=== PATIENT | female | born 1935 | race Caucasian/White ===

== ENCOUNTER → 2017-01-24 | Outpatient (CLI) | payer MEDICARE, BC | LOC: WI 13:42 | PROVIDERS: ATTEND Internal Medicine | DX: Z12.31 Encounter for screening mammogram for malignant neoplasm of breast (principal) | CPT/HCPCS: 77067; G0202 ==

== ENCOUNTER 2017-05-28 11:29 | Inpatient (IN) | payer MEDICARE, BC ==
[2017-05-28] MEDS ORDERED: IPRATROPIUM/ALBUTEROL 0.5-2.5 MG/3 ML AMPUL NEB ONE ×2 (11:37→14:40)
[2017-05-28 12:18] LABS: ABSOLUTE BASOPHILS # (AUTO) 0.1 10^3/uL (0.0-0.2); ABSOLUTE EOSINOPHILS # (AUTO) 0.2 10^3/uL (0.0-0.6); ABSOLUTE LYMPHOCYTES (AUTO) 1.8 10^3/uL (0.5-4.7); ABSOLUTE NEUT (AUTO) 8.2 10^3/uL (1.7-8.2); BASOPHILS % (AUTO) 0.5 % (0-2); EOSINOPHILS % (AUTO) 1.9 % (0-6); HEMATOCRIT 32.7 % (36.0-47.0); HEMOGLOBIN 10.9 g/dL (12.0-15.5); LYMPHOCYTES % (AUTO) 15.6 % (13-45); MEAN CORPUSCULAR HEMOGLOBIN 29.6 pg (27.0-33.4); MEAN CORPUSCULAR HGB CONC 33.4 g/dL (32.0-36.0); MEAN CORPUSCULAR VOLUME 89 fl (80-97); MONOCYTES % (AUTO) 9.3 % (3-13); RED BLOOD COUNT 3.68 10^6/uL (3.72-5.28); SEGMENTED NEUTROPHILS % (AUTO) 72.7 % (42-78); WHITE BLOOD COUNT 11.2 10^3/uL (4.0-10.5)
[2017-05-28 12:35] LABS: ALANINE AMINOTRANSFERASE 18 U/L (9-52); ALBUMIN 3.7 g/dL (3.5-5.0); ALKALINE PHOSPHATASE 69 U/L (38-126); ANION GAP 9 (5-19); ASPARTATE AMINO TRANSFERASE 16 U/L (14-36); BILIRUBIN,DIRECT 0.5 mg/dL (0.0-0.4); BILIRUBIN,TOTAL 0.5 mg/dL (0.2-1.3); BLOOD UREA NITROGEN 13 mg/dL (7-20); CALCIUM 9.3 mg/dL (8.4-10.2); CARBON DIOXIDE 33 mmol/L (22-30); CHLORIDE 87 mmol/L (98-107); CREATINE KINASE 55 U/L (30-135); CREATININE RESULT 0.51 mg/dL (0.52-1.25); GLUCOSE 112 mg/dL (75-110); POTASSIUM 4.5 mmol/L (3.6-5.0); SODIUM 128.7 mmol/L (137-145); TOTAL PROTEIN 6.5 g/dL (6.3-8.2)
[2017-05-28 12:46] LABS: CREATINE KINASE MB 2.04 ng/mL (<4.55)
[2017-05-28 12:47] LABS: TROPONIN I < 0.012 ng/mL
[2017-05-28] MEDS ORDERED: NORMAL SALINE 1000 ML 1,000 ML IV PRN (13:47)
--- NOTE | 2017-05-28 14:13 | RADIOLOGY REPORT (SQ) ---
EXAM DESCRIPTION: CTA CHEST COMPLETED DATE/TIME: 05/28/2017 1:32 pm REASON FOR STUDY: hx lung ca, hemoptysis , copd COMPARISON: PET-CT dated 04/04/2016. TECHNIQUE: CT scan of the chest performed using helical scanning technique with dynamic intravenous contrast injection. Images reviewed with lung, soft tissue and bone windows. Reconstructed coronal and sagittal MPR images reviewed. Additional 3 dimensional post-processing performed to develop Maximal Intensity Projection images ([place] P). All images stored on PACS. All CT scanners at this facility use dose modulation, iterative reconstruction, and/or weight based d osing when appropriate to reduce radiation dose to as low as reasonably achievable (ALARA). [facility]: Dose Right [facility]: CareDose [facility]: Dose Right [facility]: Teradose 4D [facility]: Mediastream CONTRAST TYPE AND DOSE: 64 mL Isovue 370- low osmolar. Contrast bolus optimized for the pulmonary arteries. Not diagnostic for the aorta. RENAL FUNCTION: BUN 13 creatinine 0.51. RADIATION DOSE: Up-to-date CT equipment and radiation dose reduction techniques were employed. CTDIv ol: 14.9 - 19.8 mGy. DLP: 512 mGy-cm. . LIMITATIONS: None. FINDINGS: LUNGS AND PLEURA: Emphysematous changes with scarring. Irregular parenchymal density in t he posterior right lower lobe, measuring 3 cm. No pleural effusion. No pneumothorax. AORTA AND GREAT VESSELS: No aneurysm. Contrast bolus not optimized for the aorta. HEART: No pericardial effusion. No significant coronary artery calcifications. PULMONARY ARTERIES: No emboli visualized in the main pulmonary arteries or the segmental branches. HILAR AND MEDIASTINAL STRUCTURES: No identified masses or abnormal nodes. HARDWARE: None in the chest. UPPER ABDOMEN: Gallstone. Limited exam. THYROID AND OTHER SOFT TISSUES: Heterogenous nodule in the right lobe of the thyroid. No adenopathy. BONES: Chronic changes in the spine with kyphoplasty. Old rib fractures. 3D MIPS: Confirm above findings. OTHER: No other significant finding. IMPRESSION: 1. NORMAL CTA OF THE CHEST. NO PULMONARY EMBOLI. 2. EMPHYSEMATOUS CHANGES WITH CHRONIC SCARRING. IRREGULAR PARENCHYMAL DENSITY IN THE POSTERIOR RIGHT LOWER LOBE COULD REPRESENT FOCAL PNEUMONIA. GIVEN HISTORY OF LUNG CANCER, CANNOT EXCLUDE RECURRENT DISEASE OR METASTASIS. 3. OTHER CHRONIC FINDINGS ABOVE. COMMENT: Quality ID # [id number]: Final reports with documentation of one or more dose reduction techniques (e.g., Automated exposure control, adjustment of the mA and/or kV according to patient size, use of iterative reconstruction technique) TECHNICAL DOCUMENTATION: JOB ID: [id number] [employer]- All Rights Reserved
[2017-05-28] MEDS ORDERED: CEFTRIAXONE 1 GM/D5W RTU 1 GM/50 ML RTUPB IV ONE (14:26)
[2017-05-28] MEDS ORDERED: NORMAL SALINE 1000 ML 1,000 ML IV ONE (14:40)
--- NOTE | 2017-05-28 14:51 | ER Document Report ---
ED General - General Chief Complaint: Shortness Of Breath Stated Complaint: DIFFICULTY BREATHING Time Seen by Provider: 05/28/17 11:37 Mode of Arrival: Medic Information source: Patient, Emergency Med Personnel Notes: 81-year-old female history of COPD lung CA presents in resp distress. Pt found by ems sating in the mid 80s given breathing treatments with some improvement TRAVEL OUTSIDE OF THE [place] IN LAST 30 DAYS: No - HPI Onset: Yesterday Onset/Duration: Sudden Quality of pain: No pain Severity: Moderate Pain Level: Denies Associated symptoms: Productive cough, Shortness of breath Exacerbated by: Movement, Walking, Coughing Relieved by: Denies Similar symptoms previously: Yes Recently seen / treated by doctor: Yes - Related Data Allergies/Adverse Reactions: adhesive tape [Adhesive Tape] Allergy (Severe, Verified 03/16/12 08:45) ibandronate sodium [From Boniva] Allergy (Severe, Verified 03/16/12 08:45) Penicillins Allergy (Severe, Verified 03/16/12 08:45) Sulfa (Sulfonamide Antibiotics) Allergy (Severe, Verified 03/16/12 08:45) oysters Allergy (Uncoded 09/07/12 09:56) throat closes Past Medical History - Social History Smoking Status: Former Smoker Cigarette use (# per day): No Chew tobacco use (# tins/day): No Smoking Education Provided: No Frequency of alcohol use: None Drug Abuse: None Family History: Reviewed & Not Pertinent - Past Medical History Cardiac Medical History: Reports: Hx Hypertension Denies: Hx Coronary Artery Disease, Hx Heart Attack Pulmonary Medical History: Reports: Hx Bronchitis, Hx COPD Denies: Hx Asthma, Hx Pneumonia Neurological Medical History: Denies: Hx Cerebrovascular Accident, Hx Seizures GI Medical History: Denies: Hx Hepatitis, Hx Hiatal Hernia, Hx Ulcer Musculoskeltal Medical History: Reports Hx Arthritis Infectious Medical History: Denies: Hx Hepatitis Past Surgical History: Denies: Hx Mastectomy, Hx Open Heart Surgery, Hx Pacemaker - Immunizations Hx Diphtheria, Pertussis, Tetanus Vaccination: No Hx Pneumococcal Vaccination: 06/12/10 Review of Systems - Review of Systems Notes: REVIEW OF SYSTEMS: CONSTITUTIONAL : Denies fever, chills, or sweats. Denies recent illness. EENT: Denies eye, ear, throat, or mouth pain or symptoms. Denies nasal or sinus congestion or discharge. Denies throat, tongue, or mouth swelling or difficulty swallowing. CARDIOVASCULAR: Denies chest pain. Denies palpitations or racing or irregular heart beat. Denies ankle edema. RESPIRATORY: Admits to shortness breath difficulty breathing GASTROINTESTINAL: Denies abdominal pain or distention. Denies nausea, vomiting , or diarrhea. Denies blood in vomitus, stools, or per rectum. Denies black, tarry stools. Denies constipation. GENITOURINARY: Denies difficulty urinating, painful urination, burning, frequency, blood in urine, or discharge. FEMALE GENITOURINARY: Denies vaginal bleeding, heavy or abnormal periods, irregular periods. Denies vaginal discharge or odor. MUSCULOSKELETAL: Denies back or neck pain or stiffness. Denies joint pain or swelling. SKIN: Denies rash, lesions or sores. HEMATOLOGIC : Denies easy bruising or bleeding. LYMPHATIC: Denies swollen, enlarged glands. NEUROLOGICAL: Denies confusion or altered mental status. Denies passing out or loss of consciousness. Denies dizziness or lightheadedness. Denies headache. Denies weakness or paralysis or loss of use of either side. Denies problems with gait or speech. Denies sensory loss, numbness, or tingling. Denies seizures. PSYCHIATRIC: Denies anxiety or stress. Denies depression, suicidal ideation, or homicidal ideation. ALL OTHER SYSTEMS REVIEWED AND NEGATIVE. PHYSICAL EXAMINATION: GENERAL: Well-appearing, moderate respiratory distress HEAD: Atraumatic, normocephalic. EYES: Pupils equal round and reactive to light, extraocular movements intact, conjunctiva are normal. ENT: Nares patent, oropharynx clear without exudates. Moist mucous membranes. NECK: Normal range of motion, supple without lymphadenopathy LUNGS: Decreased breath sounds on the right tachypneic HEART: Regular rate and rhythm without murmurs ABDOMEN: Soft, nontender, nondistended abdomen. No guarding, no rebound. No masses appreciated. Female : deferred Musculoskeletal: Normal range of motion, no pitting or edema. No cyanosis. NEUROLOGICAL: Cranial nerves grossly intact. Normal speech, normal gait. Normal sensory, motor exams PSYCH: Normal mood, normal affect. SKIN: Warm, Dry, normal turgor, no rashes or lesions noted. Dictation was performed using [employer] voice recognition software Physical Exam - Vital signs Vitals: Resp Pulse Ox 20 95 05/28/17 11:47 05/28/17 11:47 Course - Re-evaluation Re-evalutation: 05/28/17 15:12 Patient was immediately placed on nasal cannula given further breathing treatments, her blood pressure did decrease unfortunately and therefore fluid boluses were given. It is noted that the patient continued to be hypoxic after the breathing treatments and was admitted to the hospitalist service. Patient will be placed on BiPAP 05/28/17 15:13 CT finding results were discussed with the family given current findings I believe patient does have pneumonia she is hypotensive at this time. The fluid hydration is brought the blood pressure up she does not meet sepsis criteria until this point 05/28/17 15:13 - Vital Signs Vital signs: Temp Pulse Resp BP Pulse Ox 24 H 91 L 05/28/17 13:00 05/28/17 13:00 - Laboratory Result Diagrams: 05/28/17 11:55 05/28/17 11:55 Laboratory results interpreted by me: 05/28/17 05/28/17 05/28/17 11:55 11:55 11:55 WBC 11.2 H RBC 3.68 L Hgb 10.9 L Hct 32.7 L Sodium 128.7 L Chloride 87 L Carbon Dioxide 33 H Creatinine 0.51 L Glucose 112 H Direct Bilirubin 0.5 H NT-Pro-B Natriuret Pep 2080 H - Diagnostic Test Radiology reviewed: Image reviewed, Reports reviewed Critical Care Note - Critical Care Note Total time excluding time spent on procedures (mins): 39 Comments: 39 minutes of critical care time spent in direct contact evaluating and reevaluating the patient, treating symptoms, reviewing labs and studies and speaking with family and consultants excluding any procedures Discharge - Discharge Clinical Impression: COPD (chronic obstructive pulmonary disease) Qualifiers: COPD type: unspecified COPD Qualified Code(s): J44.9 - Chronic obstructive pulmonary disease, unspecified Pneumonia Qualifiers: Pneumonia type: due to unspecified organism Laterality: left Lung location: lower lobe of lung Qualified Code(s): J18.1 - Lobar pneumonia, unspecified organism Hypotension Qualifiers: Hypotension type: unspecified hypotension type Qualified Code(s): I95.9 - Hypotension, unspecified Condition: Serious Disposition: ADMITTED INPATIENT Admitting Provider: Hospitalist Unit Admitted: [facility]
[2017-05-28] MEDS ORDERED: ALBUTEROL SULFATE 0.083% NEB 2.5 MG/3 ML AMPUL NEB PRN (15:23)
[2017-05-28] MEDS ORDERED: ONDANSETRON 4 MG TAB.RAPDIS PO PRN (15:23)
[2017-05-28] MEDS ORDERED: ONDANSETRON HCL INJ/PF 4 MG/2 ML SDV IV PRN (15:23)
[2017-05-28] MEDS ORDERED: OXYCODONE-ACETAMINOPHEN 5-325 MG TABLET PO PRN (15:32)
--- NOTE | 2017-05-28 15:43 | PDOC H&P ---
History of Present Illness Admission Date/PCP: 05/28/17 15:22 DERIC SCHUMACHER PA-C Patient complains of: Shortness of breath History of Present Illness: JD LAWRENCE is a 81 year old female with a history of lung cancer 4 years ago status post CyberKnife resection of the right lower lobe lung cancer who presents with a one-week history of shortness of breath. Patient reports that she has had worsening shortness of breath over the last week and has had some low-grade fevers. This morning she had an episode of hemoptysis decided to come into the hospital. She has had some low-grade fevers. She also has had orthopnea but denies any PND or lower extremity edema. The patient has had blood-tinged sputum and also has had some thick yellow sputum. Patient had a chest CT to evaluate for the possibility of pulmonary embolism. There was no evidence for pulmonary embolism however there is a questionable right lower lobe infiltrate versus scar tissue. The patient also has had expiratory wheezes consistent with an acute COPD exacerbation. Patient reports that she quit smoking over 10 years ago. The patient denies any chest pain associated with this. She denies any palpitations or tachycardia. The patient when she presented did have episodes of hypotension with blood pressures down in the 70s. These have responded to IV fluids. Past Medical History Cardiac Medical History: Reports: Hypertension Denies: Coronary Artery Disease, Myocardial Infarction Pulmonary Medical History: Reports: Bronchitis, Chronic Obstructive Pulmonary Disease (COPD) Denies: Asthma, Pneumonia Neurological Medical History: Reports: None, Seizures Endocrine Medical History: Reports: None Renal/ Medical History: Reports: None Malignancy Medical History: Reports: Lung Cancer - Status post CyberKnife resection. GI Medical History: Reports: Gastroesophageal Reflux Disease Denies: Hepatitis, Hiatal Hernia Musculoskeltal Medical History: Reports: Arthritis Skin Medical History: Reports: None Psychiatric Medical History: Reports: None Traumatic Medical History: Reports: None Hematology: Reports: None Infectious Medical History: Reports: None Past Surgical History Past Surgical History: Reports: Hysterectomy, Other - Partial colectomy for polyp. Status post kyphoplasty of T-spine. Social History Information Source: Patient Lives with: Alone Smoking Status: Former Smoker Frequency of Alcohol Use: None Hx Recreational Drug Use: No Drugs: None Hx Prescription Drug Abuse: No - Advance Directive Resuscitation Status: Do Not Resuscitate Surrogate healthcare decision maker:: Her son Alejandro and his Family History Family History: Mother at age 86 and had breast cancer. Father at age 70 and had coronary artery disease. Parental Family History Reviewed: Yes Children Family History Reviewed: No Sibling(s) Family History Reviewed.: No Medication/Allergy Home Medications: Albuterol Sulfate [Ventolin HFA 60 puff/8 gm (ER Dispense)] 2 puff IH Q4H Atorvastatin Calcium [Lipitor 10 Mg Tablet] 10 mg PO DAILY 03/16/12 Budesonide/Formoterol Fumarate [Symbicort HFA 160-4.5 mcg Inhaler 6 gm] 2 puff IH BID 03/16/12 Esomeprazole Mag Trihydrate [Nexium] 40 mg PO DAILY 03/16/12 Fexofenadine HCl [Sylvia] 180 mg PO DAILY 03/16/12 Fluticasone Propionate [Flonase Nasal [place] 50 Mcg/[place]] 50 mcg 03/16/12 Montelukast Sodium [Singulair 10 Mg Tablet] 10 mg PO DAILY 03/16/12 Oxycodone HCl/Acetaminophen [Percocet 5-325 mg Tablet] 1 - 2 tab PO Q6 PRN 03/16 Ramipril [Altace 5 Mg Capsule] 5 mg PO DAILY 03/16/12 Tiotropium [place] [Spiriva Handihaler 18 mcg/dose (30 Dose)] 1 puff IH DAILY Oxygen 2 l 09/07/12 Allergies/Adverse Reactions: adhesive tape [Adhesive Tape] Allergy (Severe, Verified 03/16/12 08:45) ibandronate sodium [From Boniva] Allergy (Severe, Verified 03/16/12 08:45) Penicillins Allergy (Severe, Verified 03/16/12 08:45) Sulfa (Sulfonamide Antibiotics) Allergy (Severe, Verified 03/16/12 08:45) oysters Allergy (Uncoded 09/07/12 09:56) throat closes Review of Systems Constitutional: PRESENT: fever(s). ABSENT: chills, headache(s), weight gain, weight loss Eyes: ABSENT: visual disturbances Ears: ABSENT: hearing changes Cardiovascular: PRESENT: dyspnea on exertion, orthropnea. ABSENT: chest pain, edema, palpitations Respiratory: PRESENT: cough, dyspnea, hemoptysis, sputum Gastrointestinal: ABSENT: abdominal pain, constipation, diarrhea, hematemesis, hematochezia, nausea, vomiting Genitourinary: ABSENT: dysuria, hematuria Musculoskeletal: ABSENT: joint swelling Integumentary: ABSENT: rash, wounds Neurological: ABSENT: abnormal gait, abnormal speech, confusion, dizziness, focal weakness, syncope Psychiatric: ABSENT: anxiety, depression Endocrine: ABSENT: cold intolerance, heat intolerance, polydipsia, polyuria Hematologic/Lymphatic: ABSENT: easy bleeding, easy bruising Physical Exam Vital Signs: Temp Pulse Resp BP Pulse Ox 21 H 106/58 L 84 L 05/28/17 15:01 05/28/17 15:01 05/28/17 15:01 General appearance: PRESENT: mild distress, well-developed, well-nourished Head exam: PRESENT: atraumatic, normocephalic Eye exam: PRESENT: conjunctiva pink, EOMI, PERRLA. ABSENT: scleral icterus Ear exam: PRESENT: normal external ear exam Mouth exam: PRESENT: moist, tongue midline Neck exam: ABSENT: carotid bruit, JVD, lymphadenopathy, thyromegaly Respiratory exam: PRESENT: accessory muscle use, tachypnea, wheezes - Bilateral expiratory wheezes.. ABSENT: rales, rhonchi Cardiovascular exam: PRESENT: RRR. ABSENT: diastolic murmur, rubs, systolic murmur Pulses: PRESENT: normal dorsalis pedis pul GI/Abdominal exam: PRESENT: normal bowel sounds, soft. ABSENT: distended, guarding, mass, organolmegaly, rebound, tenderness Rectal exam: PRESENT: deferred Extremities exam: ABSENT: calf tenderness, clubbing, pedal edema Neurological exam: PRESENT: alert, awake, oriented to person, oriented to place , oriented to time, oriented to situation, CN II-XII grossly intact. ABSENT: motor sensory deficit Psychiatric exam: PRESENT: appropriate affect Skin exam: PRESENT: dry, intact, warm. ABSENT: cyanosis, rash Results Impressions: Chest/Abdomen CTA 05/28/17 11:37 IMPRESSION: 1. NORMAL CTA OF THE CHEST. NO PULMONARY EMBOLI. 2. EMPHYSEMATOUS CHANGES WITH CHRONIC SCARRING. IRREGULAR PARENCHYMAL DENSITY IN THE POSTERIOR RIGHT LOWER LOBE COULD REPRESENT FOCAL PNEUMONIA. GIVEN HISTORY OF LUNG CANCER, CANNOT EXCLUDE RECURRENT DISEASE OR METASTASIS. 3. OTHER CHRONIC FINDINGS ABOVE. Assessment & Plan - Diagnosis (1) Sepsis Is this a current diagnosis for this admission?: Yes Plan: Patient has hypotension, tachycardia, pneumonia consistent with septic shock. Patient also has acute COPD exacerbation. The patient has been given IV fluids and we will continue with those. We also will start the patient on Rocephin and Zithromax for the pneumonia. Given her acute respiratory distress she will be placed on BiPAP also. The patient requested that she be a DO NOT RESUSCITATE. The patient also has had an episode of hemoptysis. Unclear whether this is just pneumonia or she may have recurrence of her lung cancer. The clinical picture suggests that this is pneumonia with sepsis as the cause for hemoptysis. (2) Pneumonia Qualifiers: Pneumonia type: due to unspecified organism Laterality: left Lung location: lower lobe of lung Qualified Code(s): J18.1 - Lobar pneumonia, unspecified organism Is this a current diagnosis for this admission?: Yes Plan: Patient has community-acquired pneumonia probable gram-positive cocci. The patient however is septic. Patient was given IV fluids as well as Rocephin and Zithromax. Blood and urine cultures as well as sputum cultures have been obtained. We will also give nebulizers as needed. (3) COPD (chronic obstructive pulmonary disease) Qualifiers: COPD type: unspecified COPD Qualified Code(s): J44.9 - Chronic obstructive pulmonary disease, unspecified Is this a current diagnosis for this admission?: Yes Plan: Patient has acute COPD exacerbation. This been treated with IV steroids, nebulizers, BiPAP. (4) Hypertension Is this a current diagnosis for this admission?: Yes Plan: We will hold her antihypertensives as she is hypotensive. (5) Lung cancer Is this a current diagnosis for this admission?: Yes Plan: The patient had a CyberKnife 4 years ago. She had a PET scan in March of this year that showed no evidence for recurrence. The area in her right lower lobe that is concerning for pneumonia versus malignancy may just all be scar tissue from the CyberKnife. (6) Osteoporosis Is this a current diagnosis for this admission?: Yes (7) DNR (do not resuscitate) Is this a current diagnosis for this admission?: Yes Plan: This was discussed with the patient and the son who is at the bedside and the patient request to be a DO NOT RESUSCITATE. - Time Time Spent: 50 to 70 Minutes - Inpatient Certification Medical Necessity: Need Close Monitoring Due to Risk of Patient Decompensation, Need for IV Antibiotics - Plan Summary Plan Summary: The patient will be admitted to the IMCU. She will be made a regular admission as I anticipate this require greater than 2 midnight stay because her need for IV antibiotics and because of her acute respiratory distress requiring BiPAP.
[2017-05-28] MEDS: IPRATROPIUM/ALBUTEROL 0.5-2.5 MG/3 ML AMPUL NEB SCH ×3 (16:01→23:46)
[2017-05-28 16:11] LABS: APPEARANCE,URINE CLEAR; BILIRUBIN,URINE NEGATIVE (NEGATIVE); GLUCOSE, URINE NEGATIVE (NEGATIVE); KETONES,URINE NEGATIVE (NEGATIVE); LEUKOCYTE ESTERASE,URINE SMALL (NEGATIVE); NITRITE,URINE NEGATIVE (NEGATIVE); PROTEIN,URINE NEGATIVE (NEGATIVE); UROBILINOGEN,URINE NEGATIVE mg/dL (<2.0)
[2017-05-28] MEDS ORDERED: METHYLPREDNISOLONE INJ 40 MG/1 ML SDV IV ONE (16:30)
[2017-05-28] MEDS ORDERED: ENOXAPARIN SODIUM INJ 40 MG/0.4 ML DISP.SYRIN SUBCUT ONE (17:00)
[2017-05-28] MEDS: METHYLPREDNISOLONE INJ 40 MG/1 ML SDV IV SCH (21:00)
[2017-05-28] MEDS: ACETAMINOPHEN 325 MG TABLET PO PRN (21:01)
[2017-05-28] MEDS: AZITHROMYCIN 500 MG in DEXTROSE 5%-WATER 250 ML IV SCH (21:02)
[2017-05-28] MEDS: FAMOTIDINE 20 MG TABLET PO SCH (21:02)
[2017-05-28] MEDS: NORMAL SALINE 1000 ML 1,000 ML IV PRN (21:03)
[2017-05-28] MEDS ORDERED: FAMOTIDINE 20 MG TABLET PO SCH (22:00)
--- NOTE | 2017-05-28 22:01 | EKG REPORT ---
SEVERITY:- ABNORMAL ECG - SINUS RHYTHM PROBABLE LVH WITH SECONDARY REPOL ABNRM : Confirmed by: Calderon Fitzpatrick 28-May-2017 22:01:26
[2017-05-29] MEDS: IPRATROPIUM/ALBUTEROL 0.5-2.5 MG/3 ML AMPUL NEB SCH ×5 (04:08→19:42)
[2017-05-29 05:55] LABS: ABSOLUTE LYMPHOCYTES (AUTO) 0.6 10^3/uL (0.5-4.7); ABSOLUTE MONOCYTES (AUTO) 0.2 10^3/uL (0.1-1.4); ABSOLUTE NEUT (AUTO) 6.2 10^3/uL (1.7-8.2); BASOPHILS % (AUTO) 0.1 % (0-2); HEMATOCRIT 32.2 % (36.0-47.0); HEMOGLOBIN 10.8 g/dL (12.0-15.5); HGB HCT DIFFERENCE 0.2; LYMPHOCYTES % (AUTO) 9.2 % (13-45); MEAN CORPUSCULAR HEMOGLOBIN 29.9 pg (27.0-33.4); MEAN CORPUSCULAR HGB CONC 33.5 g/dL (32.0-36.0); MEAN CORPUSCULAR VOLUME 89 fl (80-97); MONOCYTES % (AUTO) 2.3 % (3-13); RED BLOOD COUNT 3.61 10^6/uL (3.72-5.28); RED CELL DISTRIBUTION WIDTH 13.9 % (11.5-14.0); SEGMENTED NEUTROPHILS % (AUTO) 88.4 % (42-78)
[2017-05-29 06:15] LABS: ANION GAP 9 (5-19); BLOOD UREA NITROGEN 9 mg/dL (7-20); CALCIUM 9.1 mg/dL (8.4-10.2); CARBON DIOXIDE 31 mmol/L (22-30); CHLORIDE 94 mmol/L (98-107); CREATININE RESULT 0.37 mg/dL (0.52-1.25); GLUCOSE 123 mg/dL (75-110); MAGNESIUM 1.8 mg/dL (1.6-2.3); POTASSIUM 4.7 mmol/L (3.6-5.0); SODIUM 133.5 mmol/L (137-145)
[2017-05-29] MEDS: METHYLPREDNISOLONE INJ 40 MG/1 ML SDV IV SCH ×3 (07:47→21:48)
[2017-05-29] MEDS: FAMOTIDINE 20 MG TABLET PO SCH ×2 (07:47→17:32)
--- NOTE | 2017-05-29 08:58 | PDOC PROGRESS REPORT ---
Subjective Progress Note for:: 05/29/17 Subjective:: Patient denies any more hemoptysis. Physical Exam Vital Signs: Temp Pulse Resp BP Pulse Ox 98.2 F 88 24 H 170/86 H 97 05/29/17 07:48 05/29/17 08:25 05/29/17 08:25 05/29/17 07:48 05/29/17 08:25 Intake & Output 05/28/17 05/29/17 05/30/17 06:59 06:59 06:59 Intake Total 1550 Output Total 3150 Balance -1600 Weight 70.4 kg General appearance: PRESENT: no acute distress Eye exam: PRESENT: conjunctiva pink. ABSENT: scleral icterus Mouth exam: PRESENT: moist, tongue midline Neck exam: ABSENT: JVD Respiratory exam: PRESENT: wheezes. ABSENT: rales, rhonchi Cardiovascular exam: PRESENT: RRR. ABSENT: diastolic murmur, rubs, systolic murmur GI/Abdominal exam: PRESENT: normal bowel sounds, soft. ABSENT: distended, guarding, mass, organolmegaly, rebound, tenderness Extremities exam: ABSENT: calf tenderness, clubbing, pedal edema Neurological exam: PRESENT: alert, awake, oriented to person, oriented to place , oriented to time, oriented to situation, CN II-XII grossly intact. ABSENT: motor sensory deficit Psychiatric exam: PRESENT: appropriate affect Skin exam: PRESENT: dry, intact, warm. ABSENT: cyanosis, rash Results Laboratory Results: 05/29/17 04:51 05/29/17 04:51 05/28/17 05/29/17 05/29/17 15:50 04:51 04:51 WBC 7.0 RBC 3.61 L Hgb 10.8 L Hct 32.2 L MCV 89 MCH 29.9 MCHC 33.5 RDW 13.9 Plt Count 240 Seg Neutrophils % 88.4 H Lymphocytes % 9.2 L Monocytes % 2.3 L Eosinophils % 0.0 Basophils % 0.1 Absolute Neutrophils 6.2 Absolute Lymphocytes 0.6 Absolute Monocytes 0.2 Absolute Eosinophils 0.0 Absolute Basophils 0.0 Sodium 133.5 L Potassium 4.7 Chloride 94 L Carbon Dioxide 31 H Anion Gap 9 BUN 9 Creatinine 0.37 L Est GFR ( Amer) > 60 Est GFR (Non-Af Amer) > 60 Glucose 123 H Calcium 9.1 Magnesium 1.8 Urine Color YELLOW Urine Appearance CLEAR Urine pH 7.0 Ur Specific [place] 1.030 Urine Protein NEGATIVE Urine Glucose (UA) NEGATIVE Urine Ketones NEGATIVE Urine Blood NEGATIVE Urine Nitrite NEGATIVE Ur Leukocyte Esterase SMALL H Urine WBC (Auto) 16 Urine RBC (Auto) 2 Impressions: Chest/Abdomen CTA 05/28/17 11:37 IMPRESSION: 1. NORMAL CTA OF THE CHEST. NO PULMONARY EMBOLI. 2. EMPHYSEMATOUS CHANGES WITH CHRONIC SCARRING. IRREGULAR PARENCHYMAL DENSITY IN THE POSTERIOR RIGHT LOWER LOBE COULD REPRESENT FOCAL PNEUMONIA. GIVEN HISTORY OF LUNG CANCER, CANNOT EXCLUDE RECURRENT DISEASE OR METASTASIS. 3. OTHER CHRONIC FINDINGS ABOVE. Assessment & Plan - Diagnosis (1) Sepsis Is this a current diagnosis for this admission?: Yes Plan: Patient has hypotension, tachycardia, pneumonia consistent with septic shock. Patient also has acute COPD exacerbation. The patient has been given IV fluids and we will continue with those. The patient is on Rocephin and Zithromax for the pneumonia. Given her acute respiratory distress she was placed on BiPAP also. The patient requested that she be a DO NOT RESUSCITATE. The patient also has had an episode of hemoptysis. Unclear whether this is just pneumonia or she may have recurrence of her lung cancer. The clinical picture suggests that this is pneumonia with sepsis as the cause for hemoptysis. (2) Pneumonia Qualifiers: Pneumonia type: due to unspecified organism Laterality: left Lung location: lower lobe of lung Qualified Code(s): J18.1 - Lobar pneumonia, unspecified organism Is this a current diagnosis for this admission?: Yes Plan: Patient has community-acquired pneumonia probable gram-positive cocci. The patient however is septic. Patient was given IV fluids as well as Rocephin and Zithromax. Blood and urine cultures as well as sputum cultures have been obtained. We will also give nebulizers as needed. (3) COPD (chronic obstructive pulmonary disease) Qualifiers: COPD type: unspecified COPD Qualified Code(s): J44.9 - Chronic obstructive pulmonary disease, unspecified Is this a current diagnosis for this admission?: Yes Plan: Patient has acute COPD exacerbation. This been treated with IV steroids, nebulizers, BiPAP. (4) Hypertension Is this a current diagnosis for this admission?: Yes Plan: We will hold her antihypertensives as she was hypotensive. (5) Lung cancer Is this a current diagnosis for this admission?: Yes Plan: The patient had a CyberKnife 4 years ago. She had a PET scan in March of this year that showed no evidence for recurrence. The area in her right lower lobe that is concerning for pneumonia versus malignancy may just all be scar tissue from the CyberKnife. (6) Osteoporosis Is this a current diagnosis for this admission?: Yes (7) DNR (do not resuscitate) Is this a current diagnosis for this admission?: Yes Plan: This was discussed with the patient and the son who is at the bedside and the patient request to be a DO NOT RESUSCITATE. - Time Time Spent with patient: 25-34 minutes - Inpatient Certification Medical Necessity: Need for IV Antibiotics
[2017-05-29] MEDS: MONTELUKAST SODIUM 10 MG TABLET PO SCH (10:50)
[2017-05-29] MEDS: ATORVASTATIN CALCIUM 10 MG TABLET PO SCH (10:50)
[2017-05-29] MEDS: FLUTICASONE NASAL SPRAY 50 MCG/SPRY 120 SPRAY/16 GM NASL SCH (10:51)
[2017-05-29] MEDS: ENOXAPARIN SODIUM INJ 40 MG/0.4 ML DISP.SYRIN SUBCUT SCH (10:52)
[2017-05-29] MEDS: CEFTRIAXONE 1 GM/D5W RTU 1 GM/50 ML RTUPB IV SCH (13:09)
[2017-05-29] MEDS: DIAZEPAM 2 MG TABLET PO PRN (13:10)
[2017-05-29] MEDS: ACETAMINOPHEN 325 MG TABLET PO PRN ×2 (15:36→20:32)
[2017-05-29] MEDS: AZITHROMYCIN 500 MG in DEXTROSE 5%-WATER 250 ML IV SCH (17:32)
[2017-05-29] MEDS: NORMAL SALINE 1000 ML 1,000 ML IV PRN (22:59)
[2017-05-30] MEDS: IPRATROPIUM/ALBUTEROL 0.5-2.5 MG/3 ML AMPUL NEB SCH ×7 (00:06→23:56)
[2017-05-30 04:44] LABS: ABSOLUTE LYMPHOCYTES (AUTO) 0.5 10^3/uL (0.5-4.7); ABSOLUTE MONOCYTES (AUTO) 0.4 10^3/uL (0.1-1.4); ABSOLUTE NEUT (AUTO) 9.5 10^3/uL (1.7-8.2); BASOPHILS % (AUTO) 0.1 % (0-2); HEMATOCRIT 31.3 % (36.0-47.0); HEMOGLOBIN 10.8 g/dL (12.0-15.5); HGB HCT DIFFERENCE 1.1; LYMPHOCYTES % (AUTO) 5.2 % (13-45); MEAN CORPUSCULAR HEMOGLOBIN 30.5 pg (27.0-33.4); MEAN CORPUSCULAR HGB CONC 34.3 g/dL (32.0-36.0); MEAN CORPUSCULAR VOLUME 89 fl (80-97); MONOCYTES % (AUTO) 3.9 % (3-13); RED BLOOD COUNT 3.53 10^6/uL (3.72-5.28); RED CELL DISTRIBUTION WIDTH 13.9 % (11.5-14.0); SEGMENTED NEUTROPHILS % (AUTO) 90.8 % (42-78); WHITE BLOOD COUNT 10.4 10^3/uL (4.0-10.5)
[2017-05-30 04:58] LABS: ANION GAP 9 (5-19); BLOOD UREA NITROGEN 8 mg/dL (7-20); CALCIUM 9.3 mg/dL (8.4-10.2); CARBON DIOXIDE 30 mmol/L (22-30); CHLORIDE 96 mmol/L (98-107); CREATININE RESULT 0.38 mg/dL (0.52-1.25); GLUCOSE 126 mg/dL (75-110); POTASSIUM 4.4 mmol/L (3.6-5.0); SODIUM 135.2 mmol/L (137-145)
[2017-05-30] MEDS: FAMOTIDINE 20 MG TABLET PO SCH ×2 (05:21→17:14)
[2017-05-30] MEDS: METHYLPREDNISOLONE INJ 40 MG/1 ML SDV IV SCH ×3 (05:21→22:38)
[2017-05-30] MEDS: NORMAL SALINE 1000 ML 1,000 ML IV PRN ×2 (06:39→15:35)
[2017-05-30] MEDS: DIAZEPAM 2 MG TABLET PO PRN (08:05)
[2017-05-30] MEDS: ATORVASTATIN CALCIUM 10 MG TABLET PO SCH (09:14)
[2017-05-30] MEDS: MONTELUKAST SODIUM 10 MG TABLET PO SCH (09:14)
[2017-05-30] MEDS: ENOXAPARIN SODIUM INJ 40 MG/0.4 ML DISP.SYRIN SUBCUT SCH (09:14)
[2017-05-30] MEDS: FLUTICASONE NASAL SPRAY 50 MCG/SPRY 120 SPRAY/16 GM NASL SCH (09:14)
--- NOTE | 2017-05-30 09:55 | PDOC PROGRESS REPORT ---
Subjective Progress Note for:: 05/30/17 Subjective:: Patient denies any more hemoptysis. Still feeling short of breath in spite of being on BiPAP today. Physical Exam Vital Signs: Temp Pulse Resp BP Pulse Ox 97.6 F 93 24 H 106/77 97 05/30/17 07:28 05/30/17 08:10 05/30/17 08:10 05/30/17 07:28 05/30/17 08:10 Intake & Output 05/29/17 05/30/17 05/31/17 06:59 06:59 06:59 Intake Total 1550 3800 Output Total 3150 3350 Balance -1600 450 Weight 70.4 kg 72.1 kg General appearance: PRESENT: mild distress Eye exam: PRESENT: conjunctiva pink. ABSENT: scleral icterus Mouth exam: PRESENT: moist, tongue midline Neck exam: ABSENT: JVD Respiratory exam: PRESENT: decreased breath sounds. ABSENT: rales, rhonchi, wheezes Cardiovascular exam: PRESENT: RRR. ABSENT: diastolic murmur, rubs, systolic murmur Vascular exam: PRESENT: normal capillary refill GI/Abdominal exam: PRESENT: normal bowel sounds, soft. ABSENT: distended, guarding, mass, organolmegaly, rebound, tenderness Extremities exam: ABSENT: calf tenderness, clubbing, pedal edema Neurological exam: PRESENT: alert, awake, oriented to person, oriented to place , oriented to time, oriented to situation, CN II-XII grossly intact. ABSENT: motor sensory deficit Psychiatric exam: PRESENT: appropriate affect Skin exam: PRESENT: dry, intact, warm. ABSENT: cyanosis, rash Results Laboratory Results: 05/30/17 04:05 05/30/17 04:05 05/30/17 05/30/17 04:05 04:05 WBC 10.4 RBC 3.53 L Hgb 10.8 L Hct 31.3 L MCV 89 MCH 30.5 MCHC 34.3 RDW 13.9 Plt Count 262 Seg Neutrophils % 90.8 H Lymphocytes % 5.2 L Monocytes % 3.9 Eosinophils % 0.0 Basophils % 0.1 Absolute Neutrophils 9.5 H Absolute Lymphocytes 0.5 Absolute Monocytes 0.4 Absolute Eosinophils 0.0 Absolute Basophils 0.0 Sodium 135.2 L Potassium 4.4 Chloride 96 L Carbon Dioxide 30 Anion Gap 9 BUN 8 Creatinine 0.38 L Est GFR ( Amer) > 60 Est GFR (Non-Af Amer) > 60 Glucose 126 H Calcium 9.3 Impressions: Chest/Abdomen CTA 05/28/17 11:37 IMPRESSION: 1. NORMAL CTA OF THE CHEST. NO PULMONARY EMBOLI. 2. EMPHYSEMATOUS CHANGES WITH CHRONIC SCARRING. IRREGULAR PARENCHYMAL DENSITY IN THE POSTERIOR RIGHT LOWER LOBE COULD REPRESENT FOCAL PNEUMONIA. GIVEN HISTORY OF LUNG CANCER, CANNOT EXCLUDE RECURRENT DISEASE OR METASTASIS. 3. OTHER CHRONIC FINDINGS ABOVE. Assessment & Plan - Diagnosis (1) Sepsis Is this a current diagnosis for this admission?: Yes Plan: Patient has hypotension, tachycardia, pneumonia consistent with septic shock. Patient also has acute COPD exacerbation. The patient has been given IV fluids and we will continue with those. The patient is on Rocephin and Zithromax for the pneumonia. Given her acute respiratory distress she was placed on BiPAP also. The patient is a DO NOT RESUSCITATE. The patient also has had an episode of hemoptysis. Unclear whether this is just pneumonia or she may have recurrence of her lung cancer. The clinical picture suggests that this is pneumonia with sepsis as the cause for hemoptysis. Will consult pulmonary medicine today. (2) Pneumonia Qualifiers: Pneumonia type: due to unspecified organism Laterality: left Lung location: lower lobe of lung Qualified Code(s): J18.1 - Lobar pneumonia, unspecified organism Is this a current diagnosis for this admission?: Yes Plan: Patient has community-acquired pneumonia probable gram-positive cocci. The patient however is septic. Patient was given IV fluids as well as Rocephin and Zithromax. Blood and urine cultures as well as sputum cultures have been obtained. We will also give nebulizers as needed. Will consult pulmonary medicine today. (3) COPD (chronic obstructive pulmonary disease) Qualifiers: COPD type: unspecified COPD Qualified Code(s): J44.9 - Chronic obstructive pulmonary disease, unspecified Is this a current diagnosis for this admission?: Yes Plan: Patient has acute COPD exacerbation. This been treated with IV steroids, nebulizers, BiPAP. (4) Hypertension Is this a current diagnosis for this admission?: Yes Plan: We will continue to hold her antihypertensives as she was hypotensive. (5) Lung cancer Is this a current diagnosis for this admission?: Yes Plan: The patient had a CyberKnife 4 years ago. She had a PET scan in March of this year that showed no evidence for recurrence. The area in her right lower lobe that is concerning for pneumonia versus malignancy. May just all be scar tissue from the CyberKnife. (6) Osteoporosis Is this a current diagnosis for this admission?: Yes (7) DNR (do not resuscitate) Is this a current diagnosis for this admission?: Yes Plan: the patient requests to be a DO NOT RESUSCITATE. - Time Time Spent with patient: 25-34 minutes - Inpatient Certification Medical Necessity: Need Close Monitoring Due to Risk of Patient Decompensation - Plan Summary Plan Summary: Pulmonary medicine will be consulted today.
[2017-05-30] MEDS: CEFTRIAXONE 1 GM/D5W RTU 1 GM/50 ML RTUPB IV SCH (10:59)
[2017-05-30] MEDS: ACETAMINOPHEN 325 MG TABLET PO PRN ×2 (16:53→22:39)
[2017-05-30] MEDS: AZITHROMYCIN 500 MG in DEXTROSE 5%-WATER 250 ML IV SCH (17:14)
[2017-05-30] MEDS ORDERED: FLUTICASONE/SALMETEROL DISKUS 500-50 MCG/DOSE IH ONE (20:00)
[2017-05-30] MEDS ORDERED: TIOTROPIUM BROMIDE DPI 5 CAP/KIT (18 MCG/CAP) IH ONE (20:00)
[2017-05-30 22:36] LABS: ARTERIAL BLOOD BASE EXCESS 1.5 mmol/L; ARTERIAL BLOOD O2 SATURATION 92.9 % (94-98)
[2017-05-31] MEDS: NORMAL SALINE 1000 ML 1,000 ML IV PRN (01:27)
[2017-05-31] MEDS: IPRATROPIUM/ALBUTEROL 0.5-2.5 MG/3 ML AMPUL NEB SCH ×6 (04:15→23:58)
[2017-05-31 06:09] LABS: HEMATOCRIT 30.7 % (36.0-47.0); HEMOGLOBIN 10.3 g/dL (12.0-15.5); HGB HCT DIFFERENCE 0.2; MEAN CORPUSCULAR HEMOGLOBIN 29.9 pg (27.0-33.4); MEAN CORPUSCULAR HGB CONC 33.6 g/dL (32.0-36.0); MEAN CORPUSCULAR VOLUME 89 fl (80-97); RED BLOOD COUNT 3.45 10^6/uL (3.72-5.28); RED CELL DISTRIBUTION WIDTH 13.9 % (11.5-14.0); WHITE BLOOD COUNT 12.3 10^3/uL (4.0-10.5)
[2017-05-31 06:22] LABS: ANION GAP 9 (5-19); BLOOD UREA NITROGEN 11 mg/dL (7-20); CALCIUM 8.7 mg/dL (8.4-10.2); CARBON DIOXIDE 31 mmol/L (22-30); CHLORIDE 94 mmol/L (98-107); CREATININE RESULT 0.41 mg/dL (0.52-1.25); GLUCOSE 110 mg/dL (75-110); SODIUM 134.3 mmol/L (137-145)
[2017-05-31 06:52] LABS: BASOPHILS % (MANUAL) 0 % (0-2); EOSINOPHILS % (MANUAL) 0 % (0-6); LYMPHOCYTES % (MANUAL) 6 % (13-45); TOTAL CELLS COUNTED 100
[2017-05-31 06:53] LABS: HYPOCHROMASIA SLIGHT; POLYCHROMASIA SLIGHT; TOXIC GRANULATION 1+
[2017-05-31] MEDS: FAMOTIDINE 20 MG TABLET PO SCH ×2 (07:49→18:39)
[2017-05-31] MEDS: METHYLPREDNISOLONE INJ 40 MG/1 ML SDV IV SCH ×2 (07:50→19:00)
[2017-05-31] MEDS: ATORVASTATIN CALCIUM 10 MG TABLET PO SCH (11:38)
[2017-05-31] MEDS: ENOXAPARIN SODIUM INJ 40 MG/0.4 ML DISP.SYRIN SUBCUT SCH (11:39)
[2017-05-31] MEDS: TIOTROPIUM BROMIDE DPI 5 CAP/KIT (18 MCG/CAP) IH SCH (11:39)
[2017-05-31] MEDS: MONTELUKAST SODIUM 10 MG TABLET PO SCH (11:40)
[2017-05-31] MEDS: FLUTICASONE NASAL SPRAY 50 MCG/SPRY 120 SPRAY/16 GM NASL SCH (11:44)
[2017-05-31] MEDS: FLUTICASONE/SALMETEROL DISKUS 500-50 MCG/DOSE IH SCH ×2 (11:44→21:54)
[2017-05-31] MEDS: CEFTRIAXONE 1 GM/D5W RTU 1 GM/50 ML RTUPB IV SCH (12:17)
[2017-05-31] MEDS: DIAZEPAM 2 MG TABLET PO PRN ×2 (12:46→21:58)
[2017-05-31] MEDS ORDERED: IMIPENEM/CILASTATIN SODIUM INJ 500 MG VIAL IV SCH (14:15)
--- NOTE | 2017-05-31 14:16 | PDOC PROGRESS REPORT ---
Subjective Progress Note for:: 05/31/17 Subjective:: Patient states no significant improvement since admission. Still with shortness of breath and cough unable to expectorate it. No diarrhea chills or fever. No nausea or vomiting. No chest pain. No worsening symptoms however. Physical Exam Vital Signs: Temp Pulse Resp BP Pulse Ox 98.5 F 101 H 20 141/94 H 97 05/31/17 11:08 05/31/17 12:28 05/31/17 12:28 05/31/17 11:08 05/31/17 12:28 Pulse Oximeter Continuous Start: 05/30/17 19: 00 Freq: RTQ4 Status: Active Document 05/31/17 12:28 JDR (Rec: 05/31/17 12:30 JDR [email or web address]) Pulse Oximetry Assessment Oxygen Saturation (92-100) 97 Oxygen Flow Rate (L/min) 6 Oxygen Delivery Method Nasal Cannula Equipment Usage Equipment in Use Continuous SpO2 Machine # 1 Intake & Output 05/30/17 05/31/17 06/01/17 06:59 06:59 06:59 Intake Total 3800 5477 150 Output Total 3350 2350 400 Balance 450 3127 -250 Weight 72.1 kg 74.3 kg General appearance: PRESENT: no acute distress, obese Head exam: PRESENT: normocephalic Eye exam: PRESENT: EOMI Mouth exam: PRESENT: moist, neck supple Neck exam: ABSENT: JVD Respiratory exam: PRESENT: rhonchi - Scattered bilateral, wheezes - Minimal mild expiratory Cardiovascular exam: PRESENT: RRR, +S1, +S2. ABSENT: gallop GI/Abdominal exam: PRESENT: soft. ABSENT: distended, tenderness Extremities exam: PRESENT: +1 edema Neurological exam: PRESENT: alert, awake, oriented to situation Skin exam: PRESENT: dry, warm. ABSENT: cyanosis Results Laboratory Results: 05/31/17 05:16 05/31/17 05:16 05/30/17 05/31/17 05/31/17 21:40 05:16 05:16 WBC 12.3 H RBC 3.45 L Hgb 10.3 L Hct 30.7 L MCV 89 MCH 29.9 MCHC 33.6 RDW 13.9 Plt Count 254 Seg Neutrophils % Not Reportable Lymphocytes % Not Reportable Monocytes % Not Reportable Eosinophils % Not Reportable Basophils % Not Reportable Absolute Neutrophils Not Reportable Absolute Lymphocytes Not Reportable Absolute Monocytes Not Reportable Absolute Eosinophils Not Reportable Absolute Basophils Not Reportable Carbonic Acid 1.32 HCO3/H2CO3 Ratio 20:1 ABG pH 7.40 ABG pCO2 43.7 ABG pO2 65.6 L ABG HCO3 26.5 H ABG O2 Saturation 92.9 L ABG Base Excess 1.5 FiO2 30% Sodium 134.3 L Potassium 4.0 Chloride 94 L Carbon Dioxide 31 H Anion Gap 9 BUN 11 Creatinine 0.41 L Est GFR ( Amer) > 60 Est GFR (Non-Af Amer) > 60 Glucose 110 Calcium 8.7 05/30/17 09:39 Sputum Gram Stain - Final Impressions: Chest/Abdomen CTA 05/28/17 11:37 IMPRESSION: 1. NORMAL CTA OF THE CHEST. NO PULMONARY EMBOLI. 2. EMPHYSEMATOUS CHANGES WITH CHRONIC SCARRING. IRREGULAR PARENCHYMAL DENSITY IN THE POSTERIOR RIGHT LOWER LOBE COULD REPRESENT FOCAL PNEUMONIA. GIVEN HISTORY OF LUNG CANCER, CANNOT EXCLUDE RECURRENT DISEASE OR METASTASIS. 3. OTHER CHRONIC FINDINGS ABOVE. Assessment & Plan - Diagnosis (1) COPD (chronic obstructive pulmonary disease) Qualifiers: COPD type: unspecified COPD Qualified Code(s): J44.9 - Chronic obstructive pulmonary disease, unspecified Is this a current diagnosis for this admission?: Yes (2) Pneumonia Qualifiers: Pneumonia type: due to unspecified organism Laterality: left Lung location: lower lobe of lung Qualified Code(s): J18.1 - Lobar pneumonia, unspecified organism Is this a current diagnosis for this admission?: Yes (3) Sepsis Qualifiers: Sepsis type: sepsis due to unspecified organism Qualified Code(s): A41.9 - Sepsis, unspecified organism Is this a current diagnosis for this admission?: Yes (4) UTI (urinary tract infection) Qualifiers: Urinary tract infection type: site unspecified Hematuria presence: without hematuria Qualified Code(s): N39.0 - Urinary tract infection, site not specified (5) GERD (gastroesophageal reflux disease) Qualifiers: Esophagitis presence: without esophagitis Qualified Code(s): K21.9 - Gastro -esophageal reflux disease without esophagitis Is this a current diagnosis for this admission?: Yes (6) Hypertension Qualifiers: Hypertension type: essential hypertension Qualified Code(s): I10 - Essential (primary) hypertension Is this a current diagnosis for this admission?: Yes (7) Lung cancer Qualifiers: Lung location: unspecified part of lung Is this a current diagnosis for this admission?: Yes - Time Time Spent with patient: 25-34 minutes - Plan Summary Plan Summary: We are going to change his current antibiotic to Primaxin and inhaled tobramycin. Continue bronchodilators and increase intravenous steroids. Begin Diflucan. Continue other medications and supportive care.
--- NOTE | 2017-05-31 14:47 | CONSULTATION REPORT E ---
Consultation Report NAME: JD LAWRENCE : 1935 AGE: 81Y DATE: 05/30/2017 324 A TO: DARREN ADDISON M.D. FROM: Requesting Physician HISTORY OF PRESENT ILLNESS: The patient is 81 years old with a past medical history of COPD, emphysema, and lung cancer status post cyberknife treatment a few years ago, who came in for increased shortness of breath and increased coughing with blood-tinged sputum on the day of admission. Denies any fever, chills, chest pain, upper back pain. Complained of worsening dyspnea, was given nebulizer treatment, IV Solu-Medrol and placed on BiPAP, and patient claimed that she felt a lot better. Denies any recurrence of the hemoptysis. She had a chest CTA on admission showing no pulmonary embolism, but increasing infiltrate in the right lower lobe, possible inflammatory process versus scarring versus malignancy. He had a PET scan done in March which showed no metabolic activity on the right lower lobe posterior segment infiltrate. PAST MEDICAL HISTORY: Includes: 1. COPD. 2. Asthma. 3. Emphysema. 4. Lung cancer, status post radiation treatment. 5. Allergic rhinitis. 6. Back pain. MEDICATIONS: In the hospital include: 1. Tylenol. 2. Nebulizer treatments. 3. Azithromycin 500 mg IV vancomycin. 4. Rocephin 1 gram once daily. 5. Valium as needed. 6. Lovenox for DVT prophylaxis. 7. Pepcid 20 mg tablet q.12. 8. Flonase. 9. Solu-Medrol 40 mg IV q.8. 10. Singulair 10 mg daily. 11. Zofran p.r.n. 12. Percocet. HOME MEDICATIONS: At home, the patient is also on: 1. Advair 500 mcg 1 puff b.i.d. 2. Spiriva Respimat 2.5 mcg 2 puffs once daily. ALLERGIES: The patient is allergic to: 1. PENICILLIN. 2. BONIVA. 3. SULFA DRUGS. FAMILY HISTORY: Hypertension (mother). PAST SURGICAL HISTORY: 1. Back surgery. 2. Lung surgery in 1989. 3. Appendectomy. 4. Hysterectomy. 5. . SOCIAL HISTORY: Cigarettes: She denies, quit smoking about 10 years ago but use to smoke heavily more than 1 pack a day. REVIEW OF SYSTEMS: CONSTITUTIONAL: No fever, chills. EYES: No blurry vision or dizziness. No jaundice. EARS, NOSE, AND THROAT: No ear drainage. No nasal discharge. HEAD AND NECK: No neck swelling. No neck pain. RESPIRATORY: Complained about increased shortness of breath and wheezing and increased cough with blood-tinged sputum, 1 episode 3 days ago of blood-tinged sputum. CARDIAC: No chest pain. No recent LA or atrial fibrillation. GENITOURINARY: No dysuria, hematuria. Positive stones. GASTROINTESTINAL: No nausea, vomiting, diarrhea. EXTREMITIES: No joint swelling or cellulitis. PHYSICAL EXAMINATION: GENERAL: The patient is awake, alert and fully oriented, afebrile, not in acute respiratory distress. VITAL SIGNS: Temperature is 98.2. Heart rate is 103 with a temperature maximum of 98.7. Blood pressure is 138/87. Respirations 13. Saturation 97% nasal cannula 3 liters. EYES: No jaundice or pallor. EARS, NOSE, AND THROAT: No ear drainage. No nasal discharge. HEAD AND NECK: No scalp swelling or tenderness. Neck supple. CHEST AND LUNGS: No wheezing. No rhonchi. No coarse crackles. CARDIOVASCULAR: S1, S2 distinct. Normal rate. Regular rhythm. GASTROINTESTINAL: The abdomen is soft, nontender. Positive bowel sounds. EXTREMITIES: No joint swelling. No cellulitis. LABORATORY: CBC done today showed white count 10.4, hemoglobin 10.8, hematocrit is 31.3, platelet count is 252,000, lymphocytes 5.2%, segmented neutrophil is 90.8%. Chemistry done today showed sodium 135, potassium 4.4, chloride 96, CO2 is 13, BUN is 8, creatinine is 0.38, glucose is 126, and the calcium is 9.3. NT-BNP 2 days ago was 2,080. Cardiac enzymes were negative. Blood cultures done on admission showed no growth after 48 hours. Sputum culture pending, done today. Chest CT scan done on May 18, 2017, showed increased infiltrate involving the right lower lobe posterior superior basal segment which may be inflammatory process or pneumonic process. ASSESSMENT: 1. Infiltrate, right lower lobe superior segment posterior wall, most likely inflammatory, possible pneumonic process. Underlying malignancy cannot be excluded. 2. COPD, emphysema in acute exacerbation. 3. Lung cancer, Status post ablation therapy. PLAN/RECOMMENDATIONS: 1. Start the patient on Advair 500 mcg inhaler 2 puff daily, first dose now. 2. Do Spiriva inhaler 1 capsule a day to be inhaled once daily, first dose now. 3. Will start the patient on BiPAP 08/17 and titrate FIO2 to give saturation 91 to 94%. 4. We will do ABG around 9:00 p.m. Continuous pulse oximetry at bedside and titrate FIO2 to keep saturations between 91% to 94%. Continue nebulizer treatment every 6 hours. They may use xopenex nebulization if patient becomes more tachycardic. 5. Continue IV antibiotic. 6. Continue Solu-Medrol 40 mg IV q.8 h. DICTATING PHYSICIAN: DARREN ADDISON MD,SAHARA,MPH [id number] PHY#: [id number] ID: [id number] JOB#: [id number] ACCT: [id number] cc:DARREN ADDISON M.D. > MTDD
[2017-05-31] MEDS ORDERED: IMIPENEM/CILASTATIN SODIUM 500 MG in NORMAL SALINE 100 ML IV SCH (18:00)
[2017-05-31] MEDS ORDERED: METHYLPREDNISOLONE INJ 125 MG/2 ML SDV ONE (18:39)
[2017-05-31] MEDS: FLUCONAZOLE 100 MG TABLET PO SCH (18:39)
[2017-05-31] MEDS: IMIPENEM/CILASTATIN SODIUM 500 MG in DEXTROSE 5%-WATER 100 ML IV SCH (18:56)
[2017-05-31] MEDS ORDERED: FUROSEMIDE INJ/PF 20 MG/2 ML SDV IV ONE (20:15)
[2017-05-31] MEDS: TOBRAMYCIN SULFATE NEB 40 MG/ML 30 ML NEB SCH (20:35)
--- NOTE | 2017-05-31 21:33 | PROGRESS NOTE E ---
Progress Note NAME: JD LAWRENCE : 1935 AGE: 81Y DATE: 05/31/2017 ROOM: 324 SUBJECTIVE: The patient is an 81-year-old female who came in with COPD exacerbation, severe end-stage COPD and emphysema admitted for increased shortness of breath and chest pain. Was treated for pneumonia because of new increasing infiltrate in the right lower lobe superior basal segment, site of the previous ablation therapy for lung cancer. The patient claims that she feels about the same and not getting worse. Denies any fevers or chills. No increasing cough or sputum production. No hemoptysis. No chest pain. The patient was started on IV Primaxin today because of the stool culture showing gram-negative organisms. Identification of the red cells is pending. Ceftriaxone and erythromycin were discontinued. The patient's IV Solu-Medrol was also increased to 150 mg every 6 hours. The patient was started on Advair Diskus 500 and Spiriva inhaler 1 capsule daily last night. The patient had BiPAP last night and earlier today and seemed to tolerate it well. OBJECTIVE: GENERAL: The patient is awake, alert, coherent, oriented in slight respiratory distress. VITAL SIGNS: Blood pressure 159/65, blood pressures in the high range of 228 /79 this morning to 159/65 tonight. Temperature is 98.5 degrees Fahrenheit with a T max of 98.5 degrees Fahrenheit. Heart rate is 107. Saturation is 92% on 3L nasal cannula. EYES: No jaundice or pallor. EARS, NOSE, THROAT: No ear drainage. No nasal discharge. HEAD AND NECK: No scalp tenderness. Neck is supple. No neck tenderness. CHEST AND LUNGS: No wheezing. No rhonchi. No coarse crackles. CARDIOVASCULAR: S1 and S2 distinct. Normal rate and regular rhythm. ABDOMEN: Flabby. Positive bowel sounds. Soft, nondistended, nontender. EXTREMITIES: No joint swelling or cellulitis. LABORATORY: CBC done today showed white count of 12.3 up from 10.4 yesterday, the patient is on IV Solu-Medrol. Hemoglobin is 10.3, hematocrit is 30.7, and segmented 90%, lymphocytes 6%, no bands noted. ABG last night at 2140 hours showed pH of 7.4, pCO2 of 43, pO2 of 55.6, bicarb 36.5. Chemistry done today showed sodium 134, potassium is 4, chloride is 94, CO2 is 31, BUN is 11, creatinine is 0.41, glucose 110, and calcium is 8.7. ASSESSMENT: 1. SEVERE COPD EXACERBATION PLUS EMPHYSEMA. 2. PNEUMONIA RIGHT LOWER LOBE SUPERIOR BASAL SEGMENT MOST LIKELY DUE TO GRAM-NEGATIVE INFECTION. CULTURE IS STILL PENDING. 3. URINARY TRACT INFECTION. PLAN AND RECOMMENDATION: 1. Continue IV Primaxin for now until culture results come in. 2. Continue Advair and Spiriva inhalers. 3. Continue on IV Solu-Medrol 150 mg every 6 hours. 4. Continue nebulized treatment every 6 hours and p.r.n. 5. Continue BiPAP therapy especially when patient is sleeping or if patient becomes more tachypneic. Will follow. DICTATING PHYSICIAN: DARREN ADDISON MD,SAHARA,MPH [id number] PHY#: [id number] ID: [id number] JOB#: [id number] ACCT: [id number] cc: > MTDD
[2017-06-01] MEDS: METHYLPREDNISOLONE INJ 40 MG/1 ML SDV IV SCH ×2 (00:40→05:24)
[2017-06-01] MEDS: IMIPENEM/CILASTATIN SODIUM 500 MG in DEXTROSE 5%-WATER 100 ML IV SCH ×2 (00:41→05:24)
[2017-06-01] MEDS: IPRATROPIUM/ALBUTEROL 0.5-2.5 MG/3 ML AMPUL NEB SCH ×5 (04:03→20:19)
[2017-06-01] MEDS: FAMOTIDINE 20 MG TABLET PO SCH ×2 (05:24→18:16)
[2017-06-01] MEDS: TOBRAMYCIN SULFATE NEB 40 MG/ML 30 ML NEB SCH ×2 (07:45→20:20)
[2017-06-01] MEDS: FLUTICASONE/SALMETEROL DISKUS 500-50 MCG/DOSE IH SCH ×2 (09:18→21:16)
[2017-06-01] MEDS: FLUTICASONE NASAL SPRAY 50 MCG/SPRY 120 SPRAY/16 GM NASL SCH (09:18)
[2017-06-01] MEDS: MONTELUKAST SODIUM 10 MG TABLET PO SCH (09:18)
[2017-06-01] MEDS: ENOXAPARIN SODIUM INJ 40 MG/0.4 ML DISP.SYRIN SUBCUT SCH (09:18)
[2017-06-01] MEDS: ATORVASTATIN CALCIUM 10 MG TABLET PO SCH (09:18)
[2017-06-01] MEDS: TIOTROPIUM BROMIDE DPI 5 CAP/KIT (18 MCG/CAP) IH SCH (09:20)
[2017-06-01] MEDS ORDERED: NORMAL SALINE 1000 ML 1,000 ML IV PRN (11:05)
--- NOTE | 2017-06-01 11:12 | PDOC PROGRESS REPORT ---
Subjective Progress Note for:: 06/01/17 Subjective:: Patient feels better this morning. Able to sleep last night. Wheezing is likewise better. Patient receive a dose of Lasix and did well as well. No reported temperature spikes, diarrhea, nausea or vomiting. Physical Exam Vital Signs: Temp Pulse Resp BP Pulse Ox 98.5 F 96 16 116/92 H 92 06/01/17 07:28 06/01/17 07:45 06/01/17 07:45 06/01/17 07:28 06/01/17 07:45 Pulse Oximeter Continuous Start: 05/30/17 19: 00 Freq: RTQ4 Status: Active Document 06/01/17 07:45 DSH (Rec: 06/01/17 07:53 DSH [email or web address]) Pulse Oximetry Assessment Oxygen Saturation (92-100) 92 Oxygen Flow Rate (L/min) 3 Oxygen Delivery Method Nasal Cannula Equipment Usage Equipment in Use Continuous SpO2 Machine # 1 Intake & Output 05/31/17 06/01/17 06/02/17 06:59 06:59 06:59 Intake Total 5468 2930 Output Total 2351 5682 Balance 0127 -9583 Weight 74.3 kg 72 kg General appearance: PRESENT: no acute distress, other - Remain on BiPAP Head exam: PRESENT: normocephalic Eye exam: PRESENT: EOMI Mouth exam: PRESENT: moist, neck supple Respiratory exam: PRESENT: rhonchi - Bilateral, wheezes - Bilateral but less Cardiovascular exam: PRESENT: RRR. ABSENT: gallop GI/Abdominal exam: PRESENT: soft. ABSENT: distended, tenderness Extremities exam: ABSENT: pedal edema Neurological exam: PRESENT: alert, awake, oriented to situation Results Laboratory Results: 05/31/17 05:16 05/31/17 05:16 05/30/17 09:39 Sputum Gram Stain - Final 05/30/17 09:39 Sputum Sputum Culture - Final Pseudomonas Aeruginosa C.albicans/C.dubliniensis Normal [place] Absent Impressions: Chest/Abdomen CTA 05/28/17 11:37 IMPRESSION: 1. NORMAL CTA OF THE CHEST. NO PULMONARY EMBOLI. 2. EMPHYSEMATOUS CHANGES WITH CHRONIC SCARRING. IRREGULAR PARENCHYMAL DENSITY IN THE POSTERIOR RIGHT LOWER LOBE COULD REPRESENT FOCAL PNEUMONIA. GIVEN HISTORY OF LUNG CANCER, CANNOT EXCLUDE RECURRENT DISEASE OR METASTASIS. 3. OTHER CHRONIC FINDINGS ABOVE. Assessment & Plan - Diagnosis (1) COPD (chronic obstructive pulmonary disease) Qualifiers: COPD type: unspecified COPD Qualified Code(s): J44.9 - Chronic obstructive pulmonary disease, unspecified Is this a current diagnosis for this admission?: Yes (2) Pneumonia Qualifiers: Pneumonia type: due to unspecified organism Laterality: left Lung location: lower lobe of lung Qualified Code(s): J18.1 - Lobar pneumonia, unspecified organism Is this a current diagnosis for this admission?: Yes (3) Sepsis Qualifiers: Sepsis type: sepsis due to unspecified organism Qualified Code(s): A41.9 - Sepsis, unspecified organism Is this a current diagnosis for this admission?: Yes (4) UTI (urinary tract infection) Qualifiers: Urinary tract infection type: site unspecified Hematuria presence: without hematuria Qualified Code(s): N39.0 - Urinary tract infection, site not specified (5) GERD (gastroesophageal reflux disease) Qualifiers: Esophagitis presence: without esophagitis Qualified Code(s): K21.9 - Gastro -esophageal reflux disease without esophagitis Is this a current diagnosis for this admission?: Yes (6) Hypertension Qualifiers: Hypertension type: essential hypertension Qualified Code(s): I10 - Essential (primary) hypertension Is this a current diagnosis for this admission?: Yes (7) Lung cancer Qualifiers: Lung location: unspecified part of lung Is this a current diagnosis for this admission?: Yes - Time Time Spent with patient: 25-34 minutes - Plan Summary Plan Summary: We are going to add 20 mg of Lasix daily. Decrease intravenous fluids. Sputum culture came back positive for Pseudomonas. It is sensitive to quinolones we will therefore changed to ciprofloxacin IV. Continue tobramycin inhaler. Continue other medications and supportive care.
[2017-06-01] MEDS ORDERED: CIPROFLOXACIN 400 MG/D5W RTU 400 MG/200 ML RTUPB IV ONE (12:00)
[2017-06-01] MEDS: METHYLPREDNISOLONE INJ 125 MG/2 ML SDV IV SCH ×3 (12:04→23:35)
[2017-06-01] MEDS: FLUCONAZOLE 100 MG TABLET PO SCH (18:16)
[2017-06-01] MEDS: CIPROFLOXACIN 400 MG/D5W RTU 400 MG/200 ML RTUPB IV SCH (21:16)
[2017-06-02] MEDS: IPRATROPIUM/ALBUTEROL 0.5-2.5 MG/3 ML AMPUL NEB SCH ×7 (00:10→23:57)
[2017-06-02] MEDS: FAMOTIDINE 20 MG TABLET PO SCH ×2 (05:21→18:15)
[2017-06-02] MEDS: METHYLPREDNISOLONE INJ 125 MG/2 ML SDV IV SCH ×4 (05:22→23:08)
[2017-06-02] MEDS: TOBRAMYCIN SULFATE NEB 40 MG/ML 30 ML NEB SCH ×2 (07:41→20:21)
[2017-06-02] MEDS: ATORVASTATIN CALCIUM 10 MG TABLET PO SCH (10:54)
[2017-06-02] MEDS: MONTELUKAST SODIUM 10 MG TABLET PO SCH (10:54)
[2017-06-02] MEDS: FLUTICASONE/SALMETEROL DISKUS 500-50 MCG/DOSE IH SCH ×2 (10:55→22:21)
[2017-06-02] MEDS: FLUTICASONE NASAL SPRAY 50 MCG/SPRY 120 SPRAY/16 GM NASL SCH (10:56)
[2017-06-02] MEDS: TIOTROPIUM BROMIDE DPI 5 CAP/KIT (18 MCG/CAP) IH SCH (10:56)
[2017-06-02] MEDS: CIPROFLOXACIN 400 MG/D5W RTU 400 MG/200 ML RTUPB IV SCH ×2 (10:58→22:21)
[2017-06-02] MEDS: ENOXAPARIN SODIUM INJ 40 MG/0.4 ML DISP.SYRIN SUBCUT SCH (10:58)
[2017-06-02] MEDS ORDERED: FUROSEMIDE INJ/PF 20 MG/2 ML SDV IV SCH (11:00)
--- NOTE | 2017-06-02 13:38 | PDOC PROGRESS REPORT ---
Subjective Progress Note for:: 06/02/17 Subjective:: Patient continues to improve slowly. She is off the BiPAP now. No reported temperature spikes nausea or vomiting or diarrhea. Still with cough with little phlegm. Physical Exam Vital Signs: Temp Pulse Resp BP Pulse Ox 98.3 F 97 16 121/58 L 96 06/02/17 11:32 06/02/17 12:19 06/02/17 12:19 06/02/17 11:32 06/02/17 12:19 Pulse Oximeter Continuous Start: 05/30/17 19: 00 Freq: RTQ4 Status: Active Document 06/02/17 12:19 [facility] (Rec: 06/02/17 12:22 [facility] [email or web address]) Pulse Oximetry Assessment Oxygen Saturation (92-100) 96 Oxygen Flow Rate (L/min) 3 Oxygen Delivery Method Nasal Cannula Equipment Usage Equipment in Use Continuous SpO2 Machine # 1 Intake & Output 06/01/17 06/02/17 06/03/17 06:59 06:59 06:59 Intake Total 2930 2455 Output Total 5649 2050 Balance -2695 405 Weight 72 kg 70.7 kg General appearance: PRESENT: no acute distress, cooperative Head exam: PRESENT: normocephalic Eye exam: PRESENT: EOMI Mouth exam: PRESENT: moist, neck supple Neck exam: ABSENT: JVD Respiratory exam: PRESENT: decreased breath sounds, rhonchi - Scattered bilateral Cardiovascular exam: PRESENT: RRR. ABSENT: gallop GI/Abdominal exam: PRESENT: soft. ABSENT: distended, tenderness Extremities exam: ABSENT: pedal edema Neurological exam: PRESENT: alert, awake, oriented to situation Skin exam: PRESENT: dry, warm. ABSENT: cyanosis Results Laboratory Results: 05/31/17 05:16 05/31/17 05:16 Impressions: Chest/Abdomen CTA 05/28/17 11:37 IMPRESSION: 1. NORMAL CTA OF THE CHEST. NO PULMONARY EMBOLI. 2. EMPHYSEMATOUS CHANGES WITH CHRONIC SCARRING. IRREGULAR PARENCHYMAL DENSITY IN THE POSTERIOR RIGHT LOWER LOBE COULD REPRESENT FOCAL PNEUMONIA. GIVEN HISTORY OF LUNG CANCER, CANNOT EXCLUDE RECURRENT DISEASE OR METASTASIS. 3. OTHER CHRONIC FINDINGS ABOVE. Assessment & Plan - Diagnosis (1) COPD (chronic obstructive pulmonary disease) Qualifiers: COPD type: unspecified COPD Qualified Code(s): J44.9 - Chronic obstructive pulmonary disease, unspecified Is this a current diagnosis for this admission?: Yes (2) Pneumonia Qualifiers: Pneumonia type: due to unspecified organism Laterality: left Lung location: lower lobe of lung Qualified Code(s): J18.1 - Lobar pneumonia, unspecified organism Is this a current diagnosis for this admission?: Yes (3) Sepsis Qualifiers: Sepsis type: sepsis due to unspecified organism Qualified Code(s): A41.9 - Sepsis, unspecified organism Is this a current diagnosis for this admission?: Yes (4) UTI (urinary tract infection) Qualifiers: Urinary tract infection type: site unspecified Hematuria presence: without hematuria Qualified Code(s): N39.0 - Urinary tract infection, site not specified (5) GERD (gastroesophageal reflux disease) Qualifiers: Esophagitis presence: without esophagitis Qualified Code(s): K21.9 - Gastro -esophageal reflux disease without esophagitis Is this a current diagnosis for this admission?: Yes (6) Hypertension Qualifiers: Hypertension type: essential hypertension Qualified Code(s): I10 - Essential (primary) hypertension Is this a current diagnosis for this admission?: Yes (7) Lung cancer Qualifiers: Lung location: unspecified part of lung Is this a current diagnosis for this admission?: Yes - Time Time Spent with patient: 15-24 minutes - Plan Summary Plan Summary: Begin physical therapy. Continue current antibiotics. Patient improving. We will give 1 more day of diuretics and discontinuing the morning. Continue supportive care.
[2017-06-02] MEDS ORDERED: ONDANSETRON HCL INJ/PF 4 MG/2 ML SDV IV PRN (14:30)
[2017-06-02] MEDS ORDERED: ONDANSETRON 4 MG TAB.RAPDIS PO PRN ×2 (14:30)
[2017-06-02] MEDS: FLUCONAZOLE 100 MG TABLET PO SCH (18:15)
[2017-06-03] MEDS: IPRATROPIUM/ALBUTEROL 0.5-2.5 MG/3 ML AMPUL NEB SCH ×5 (04:16→21:20)
[2017-06-03] MEDS: FAMOTIDINE 20 MG TABLET PO SCH ×2 (05:09→17:57)
[2017-06-03] MEDS: METHYLPREDNISOLONE INJ 125 MG/2 ML SDV IV SCH ×2 (05:09→14:02)
[2017-06-03] MEDS: TOBRAMYCIN SULFATE NEB 40 MG/ML 30 ML NEB SCH ×2 (07:39→21:20)
[2017-06-03] MEDS ORDERED: FUROSEMIDE INJ/PF 20 MG/2 ML SDV IV SCH (10:00)
[2017-06-03] MEDS: CIPROFLOXACIN 400 MG/D5W RTU 400 MG/200 ML RTUPB IV SCH ×2 (10:42→23:26)
[2017-06-03] MEDS: ENOXAPARIN SODIUM INJ 40 MG/0.4 ML DISP.SYRIN SUBCUT SCH (10:45)
[2017-06-03] MEDS: FLUTICASONE NASAL SPRAY 50 MCG/SPRY 120 SPRAY/16 GM NASL SCH (10:46)
[2017-06-03] MEDS: FLUTICASONE/SALMETEROL DISKUS 500-50 MCG/DOSE IH SCH ×2 (10:46→21:51)
[2017-06-03] MEDS: ATORVASTATIN CALCIUM 10 MG TABLET PO SCH (10:46)
[2017-06-03] MEDS: MONTELUKAST SODIUM 10 MG TABLET PO SCH (10:46)
[2017-06-03] MEDS: TIOTROPIUM BROMIDE DPI 5 CAP/KIT (18 MCG/CAP) IH SCH (10:47)
[2017-06-03] MEDS ORDERED: BISACODYL 10 MG SUPP.RECT PR ONE (12:01)
[2017-06-03 14:04] LABS: MAGNESIUM 1.6 mg/dL (1.6-2.3); POTASSIUM 3.2 mmol/L (3.6-5.0)
[2017-06-03] MEDS ORDERED: NORMAL SALINE 1000 ML 1,000 ML IV PRN (14:20)
--- NOTE | 2017-06-03 14:25 | PDOC PROGRESS REPORT ---
Subjective Progress Note for:: 06/03/17 Subjective:: Patient has body malaise today otherwise breathing is about the same. No bowel movement for 5 days. No nausea vomiting or abdominal pain. No chest pain. No increasing shortness of breath. Staff reports trigeminy on telemetry. Physical Exam Vital Signs: Temp Pulse Resp BP Pulse Ox 98.0 F 94 16 90/54 L 92 06/03/17 11:39 06/03/17 13:04 06/03/17 13:04 06/03/17 11:39 06/03/17 13:04 Pulse Oximeter Continuous Start: 05/30/17 19: 00 Freq: RTQ4 Status: Active Document 06/03/17 13:04 [facility] (Rec: 06/03/17 13:09 [facility] [email or web address]) Pulse Oximetry Assessment Oxygen Saturation (92-100) 92 Oxygen Flow Rate (L/min) 3 Oxygen Delivery Method Nasal Cannula Equipment Usage Equipment in Use Continuous SpO2 Machine # 1 Intake & Output 06/02/17 06/03/17 06/04/17 06:59 06:59 06:59 Intake Total 2455 2901 500 Output Total 2050 2850 1000 Balance 405 51 -500 Weight 70.7 kg 72.2 kg 72.2 kg General appearance: PRESENT: no acute distress, cooperative Head exam: PRESENT: normocephalic Eye exam: PRESENT: EOMI Mouth exam: PRESENT: moist, neck supple Neck exam: ABSENT: JVD Respiratory exam: PRESENT: decreased breath sounds. ABSENT: wheezes Cardiovascular exam: PRESENT: RRR. ABSENT: gallop GI/Abdominal exam: PRESENT: hypoactive bowel sounds, soft. ABSENT: distended, tenderness Extremities exam: ABSENT: pedal edema Neurological exam: PRESENT: alert, awake, oriented to situation Skin exam: PRESENT: dry, warm. ABSENT: cyanosis Results Laboratory Results: 05/31/17 05:16 06/03/17 13:25 06/03/17 13:25 Potassium 3.2 L Magnesium 1.6 Impressions: Chest/Abdomen CTA 05/28/17 11:37 IMPRESSION: 1. NORMAL CTA OF THE CHEST. NO PULMONARY EMBOLI. 2. EMPHYSEMATOUS CHANGES WITH CHRONIC SCARRING. IRREGULAR PARENCHYMAL DENSITY IN THE POSTERIOR RIGHT LOWER LOBE COULD REPRESENT FOCAL PNEUMONIA. GIVEN HISTORY OF LUNG CANCER, CANNOT EXCLUDE RECURRENT DISEASE OR METASTASIS. 3. OTHER CHRONIC FINDINGS ABOVE. Assessment & Plan - Diagnosis (1) COPD (chronic obstructive pulmonary disease) Qualifiers: COPD type: unspecified COPD Qualified Code(s): J44.9 - Chronic obstructive pulmonary disease, unspecified Is this a current diagnosis for this admission?: Yes (2) Pneumonia Qualifiers: Pneumonia type: due to unspecified organism Laterality: left Lung location: lower lobe of lung Qualified Code(s): J18.1 - Lobar pneumonia, unspecified organism Is this a current diagnosis for this admission?: Yes (3) Sepsis Qualifiers: Sepsis type: sepsis due to unspecified organism Qualified Code(s): A41.9 - Sepsis, unspecified organism Is this a current diagnosis for this admission?: Yes (4) UTI (urinary tract infection) Qualifiers: Urinary tract infection type: site unspecified Hematuria presence: without hematuria Qualified Code(s): N39.0 - Urinary tract infection, site not specified (5) GERD (gastroesophageal reflux disease) Qualifiers: Esophagitis presence: without esophagitis Qualified Code(s): K21.9 - Gastro -esophageal reflux disease without esophagitis Is this a current diagnosis for this admission?: Yes (6) Hypertension Qualifiers: Hypertension type: essential hypertension Qualified Code(s): I10 - Essential (primary) hypertension Is this a current diagnosis for this admission?: Yes (7) Lung cancer Qualifiers: Lung location: unspecified part of lung Is this a current diagnosis for this admission?: Yes - Time Time Spent with patient: 25-34 minutes - Plan Summary Plan Summary: IV fluids to KVO. Discontinue Lasix. Bring magnesium above 2 and potassium above 4. Recheck electrolytes in the morning. Continue antibiotics. Continue physical therapy.
[2017-06-03] MEDS: POTASSI CL 20 MEQ/50 ML RIDER 20 MEQ/50 ML RTUPB IV SCH ×2 (15:26→17:58)
[2017-06-03] MEDS: MAGNESIUM OXIDE 400 MG TABLET PO SCH (17:55)
[2017-06-03] MEDS: FLUCONAZOLE 100 MG TABLET PO SCH (17:57)
[2017-06-03] MEDS ORDERED: METHYLPREDNISOLONE INJ 125 MG/2 ML SDV IV SCH (21:00)
[2017-06-03] MEDS ORDERED: POTASSIUM CHLORIDE 20 MEQ/50 ML RTU IV ONE (21:00)
[2017-06-04] MEDS: IPRATROPIUM/ALBUTEROL 0.5-2.5 MG/3 ML AMPUL NEB SCH ×7 (00:35→23:40)
[2017-06-04] MEDS ORDERED: METHYLPREDNISOLONE INJ 125 MG/2 ML SDV IV SCH (06:00)
[2017-06-04 06:46] LABS: HEMATOCRIT 33.9 % (36.0-47.0); HEMOGLOBIN 11.1 g/dL (12.0-15.5); HGB HCT DIFFERENCE -0.6; MEAN CORPUSCULAR HEMOGLOBIN 29.2 pg (27.0-33.4); MEAN CORPUSCULAR HGB CONC 32.8 g/dL (32.0-36.0); MEAN CORPUSCULAR VOLUME 89 fl (80-97); RED BLOOD COUNT 3.82 10^6/uL (3.72-5.28); RED CELL DISTRIBUTION WIDTH 13.8 % (11.5-14.0); WHITE BLOOD COUNT 17.8 10^3/uL (4.0-10.5)
[2017-06-04] MEDS: FAMOTIDINE 20 MG TABLET PO SCH ×2 (06:51→18:41)
[2017-06-04 06:55] LABS: BLOOD UREA NITROGEN 19 mg/dL (7-20); CALCIUM 8.9 mg/dL (8.4-10.2); CHLORIDE 82 mmol/L (98-107); GLUCOSE 125 mg/dL (75-110); SODIUM 130.4 mmol/L (137-145)
[2017-06-04 07:01] LABS: POTASSIUM 4.1 mmol/L (3.6-5.0)
[2017-06-04 07:03] LABS: ANION GAP 5 (5-19); CARBON DIOXIDE 43 mmol/L (22-30)
[2017-06-04] MEDS: TOBRAMYCIN SULFATE NEB 40 MG/ML 30 ML NEB SCH ×2 (08:37→20:25)
[2017-06-04] MEDS: ATORVASTATIN CALCIUM 10 MG TABLET PO SCH (09:58)
[2017-06-04] MEDS: MONTELUKAST SODIUM 10 MG TABLET PO SCH (09:59)
[2017-06-04] MEDS: MAGNESIUM OXIDE 400 MG TABLET PO SCH (09:59)
[2017-06-04] MEDS: CIPROFLOXACIN 400 MG/D5W RTU 400 MG/200 ML RTUPB IV SCH ×2 (10:00→22:12)
[2017-06-04] MEDS: FLUTICASONE/SALMETEROL DISKUS 500-50 MCG/DOSE IH SCH ×2 (10:00→22:12)
[2017-06-04] MEDS: FLUTICASONE NASAL SPRAY 50 MCG/SPRY 120 SPRAY/16 GM NASL SCH (10:00)
[2017-06-04] MEDS: ENOXAPARIN SODIUM INJ 40 MG/0.4 ML DISP.SYRIN SUBCUT SCH (10:02)
--- NOTE | 2017-06-04 10:41 | PDOC PROGRESS REPORT ---
Subjective Progress Note for:: 06/04/17 Subjective:: Coughing is about the same. No increasing shortness of breath. Still unable to bring out phlegm. No nausea or vomiting nor diarrhea. No chills or fever. Physical Exam Vital Signs: Temp Pulse Resp BP Pulse Ox 97.6 F 95 20 127/93 H 96 06/04/17 07:43 06/04/17 08:37 06/04/17 08:37 06/04/17 07:43 06/04/17 08:37 Pulse Oximeter Continuous Start: 05/30/17 19: 00 Freq: RTQ4 Status: Active Document 06/04/17 08:37 [facility] (Rec: 06/04/17 09:02 [facility] [email or web address]) Pulse Oximetry Assessment Oxygen Saturation (92-100) 96 Oxygen Flow Rate (L/min) 5 Equipment Usage Equipment in Use Continuous SpO2 Machine # 1 Intake & Output 06/03/17 06/04/17 06/05/17 06:59 06:59 06:59 Intake Total 2901 7144 Output Total 2850 1850 Balance 51 5294 Weight 72.2 kg 71.8 kg General appearance: PRESENT: no acute distress, cooperative Head exam: PRESENT: normocephalic Eye exam: PRESENT: EOMI Mouth exam: PRESENT: moist, neck supple Neck exam: ABSENT: JVD Respiratory exam: PRESENT: rhonchi - Bilaterally, wheezes - Minimal bilaterally Cardiovascular exam: PRESENT: RRR. ABSENT: gallop GI/Abdominal exam: PRESENT: soft. ABSENT: distended, tenderness Extremities exam: ABSENT: pedal edema Neurological exam: PRESENT: alert, awake, oriented to situation Skin exam: PRESENT: dry, warm. ABSENT: cyanosis Results Laboratory Results: 06/04/17 06:05 06/04/17 06:05 06/03/17 06/04/17 06/04/17 13:25 06:05 06:05 WBC 17.8 H RBC 3.82 Hgb 11.1 L Hct 33.9 L MCV 89 MCH 29.2 MCHC 32.8 RDW 13.8 Plt Count 254 Sodium 130.4 L Potassium 3.2 L 4.1 Chloride 82 L Carbon Dioxide 43 H* Anion Gap 5 BUN 19 Creatinine 0.50 L Est GFR ( Amer) > 60 Est GFR (Non-Af Amer) > 60 Glucose 125 H Calcium 8.9 Magnesium 1.6 Impressions: Chest/Abdomen CTA 05/28/17 11:37 IMPRESSION: 1. NORMAL CTA OF THE CHEST. NO PULMONARY EMBOLI. 2. EMPHYSEMATOUS CHANGES WITH CHRONIC SCARRING. IRREGULAR PARENCHYMAL DENSITY IN THE POSTERIOR RIGHT LOWER LOBE COULD REPRESENT FOCAL PNEUMONIA. GIVEN HISTORY OF LUNG CANCER, CANNOT EXCLUDE RECURRENT DISEASE OR METASTASIS. 3. OTHER CHRONIC FINDINGS ABOVE. Assessment & Plan - Diagnosis (1) COPD (chronic obstructive pulmonary disease) Qualifiers: COPD type: unspecified COPD Qualified Code(s): J44.9 - Chronic obstructive pulmonary disease, unspecified Is this a current diagnosis for this admission?: Yes (2) Pneumonia Qualifiers: Pneumonia type: due to unspecified organism Laterality: left Lung location: lower lobe of lung Qualified Code(s): J18.1 - Lobar pneumonia, unspecified organism Is this a current diagnosis for this admission?: Yes (3) Sepsis Qualifiers: Sepsis type: sepsis due to unspecified organism Qualified Code(s): A41.9 - Sepsis, unspecified organism Is this a current diagnosis for this admission?: Yes (4) UTI (urinary tract infection) Qualifiers: Urinary tract infection type: site unspecified Hematuria presence: without hematuria Qualified Code(s): N39.0 - Urinary tract infection, site not specified (5) GERD (gastroesophageal reflux disease) Qualifiers: Esophagitis presence: without esophagitis Qualified Code(s): K21.9 - Gastro -esophageal reflux disease without esophagitis Is this a current diagnosis for this admission?: Yes (6) Hypertension Qualifiers: Hypertension type: essential hypertension Qualified Code(s): I10 - Essential (primary) hypertension Is this a current diagnosis for this admission?: Yes (7) Lung cancer Qualifiers: Lung location: unspecified part of lung Is this a current diagnosis for this admission?: Yes - Time Time Spent with patient: 25-34 minutes - Plan Summary Plan Summary: Patient becoming alkalotic. We will discontinue the patient's diuretic. In the meantime obtain a follow-up chest x-ray. Continue current antibiotics. Recheck creatinine. Humidified oxygen.
--- NOTE | 2017-06-04 11:14 | RADIOLOGY REPORT (SQ) ---
EXAM DESCRIPTION: CHEST SINGLE VIEW COMPLETED DATE/TIME: 06/04/2017 10:53 am REASON FOR STUDY: SOB/cough COMPARISON: CT angio chest 05/28/2017 PET-CT 04/04/2016 Chest films 03/16/2012, 07/10/2010 EXAM PARAMETERS: NUMBER OF VIEWS: One view. TECHNIQUE: Single frontal radiographic view of the chest acquired. RADIATION DOSE: NA LIMITATIONS: None. FINDINGS: LUNGS AND PLEURA: Volume loss and increased interstitial markings in the right upper lobe, similar compared to the CT angio chest 05/28/2017. There is scarring along the right posterior chest projected over the right upper hilum and medial aspect right minor fissure, also similar compared to CT chest 05/28/2017 No gross acute infiltrates. No pleural effusion. No pneumothorax. MEDIASTINUM AND HILAR STRUCTURES: No masses. Contour normal. HEART AND VASCULAR STRUCTURES: Heart normal in size. Normal vasculature. BONES: Old right rib fractures. HARDWARE: None in the chest. OTHER: No other significant finding. IMPRESSION: Post therapeutic changes in the right chest. No acute infiltrates. TECHNICAL DOCUMENTATION: JOB ID: [id number]
[2017-06-04] MEDS ORDERED: PREDNISONE 20 MG TABLET PO ONE (11:30)
[2017-06-04] MEDS: TIOTROPIUM BROMIDE DPI 5 CAP/KIT (18 MCG/CAP) IH SCH (12:24)
[2017-06-04] MEDS: FLUCONAZOLE 100 MG TABLET PO SCH (18:40)
--- NOTE | 2017-06-04 20:14 | EKG REPORT ---
SEVERITY:- ABNORMAL ECG - SINUS TACHYCARDIA VENTRICULAR BIGEMINY NONSPECIFIC ST-T CHANGES- INFERIOR LATERAL LEADS : Confirmed by: Gucci Mccormick MD 04-Jun-2017 20:13:51
[2017-06-05] MEDS: IPRATROPIUM/ALBUTEROL 0.5-2.5 MG/3 ML AMPUL NEB SCH ×5 (04:20→20:34)
[2017-06-05] MEDS: FAMOTIDINE 20 MG TABLET PO SCH ×2 (05:41→17:45)
[2017-06-05 06:25] LABS: BLOOD UREA NITROGEN 29 mg/dL (7-20); CALCIUM 9.2 mg/dL (8.4-10.2); CHLORIDE 78 mmol/L (98-107); CREATININE RESULT 0.51 mg/dL (0.52-1.25); GLUCOSE 100 mg/dL (75-110); POTASSIUM 4.1 mmol/L (3.6-5.0); SODIUM 124.5 mmol/L (137-145)
[2017-06-05 06:32] LABS: ANION GAP 7 (5-19)
[2017-06-05 06:37] LABS: CARBON DIOXIDE 40 mmol/L (22-30)
[2017-06-05] MEDS: TOBRAMYCIN SULFATE NEB 40 MG/ML 30 ML NEB SCH ×2 (08:53→20:34)
[2017-06-05] MEDS ORDERED: PREDNISONE 20 MG TABLET PO SCH (10:00)
[2017-06-05] MEDS: MONTELUKAST SODIUM 10 MG TABLET PO SCH (11:51)
[2017-06-05] MEDS: ATORVASTATIN CALCIUM 10 MG TABLET PO SCH (11:51)
[2017-06-05] MEDS: CIPROFLOXACIN 400 MG/D5W RTU 400 MG/200 ML RTUPB IV SCH ×2 (11:52→22:18)
[2017-06-05] MEDS: FLUTICASONE/SALMETEROL DISKUS 500-50 MCG/DOSE IH SCH ×2 (11:52→22:18)
[2017-06-05] MEDS: FLUTICASONE NASAL SPRAY 50 MCG/SPRY 120 SPRAY/16 GM NASL SCH (11:53)
[2017-06-05] MEDS: TIOTROPIUM BROMIDE DPI 5 CAP/KIT (18 MCG/CAP) IH SCH (11:53)
[2017-06-05] MEDS: ENOXAPARIN SODIUM INJ 40 MG/0.4 ML DISP.SYRIN SUBCUT SCH (11:54)
--- NOTE | 2017-06-05 14:44 | PDOC PROGRESS REPORT ---
Subjective Progress Note for:: 06/05/17 Subjective:: Denies diarrhea, nausea or vomiting, abdominal pain, chest pain. No worsening shortness of breath or cough. Denies hemoptysis. Physical Exam Vital Signs: Temp Pulse Resp BP Pulse Ox 98.4 F 90 20 110/59 L 96 06/05/17 11:19 06/05/17 12:14 06/05/17 12:14 06/05/17 11:19 06/05/17 12:14 Pulse Oximeter Continuous Start: 05/30/17 19: 00 Freq: RTQ4 Status: Active Document 06/05/17 12:14 [facility] (Rec: 06/05/17 12:39 [facility] [email or web address]) Pulse Oximetry Assessment Oxygen Saturation (92-100) 94 Oxygen Flow Rate (L/min) 5 Oxygen Delivery Method Nasal Cannula Equipment Usage Equipment in Use Continuous SpO2 Machine # 1 Intake & Output 06/04/17 06/05/17 06/06/17 06:59 06:59 06:59 Intake Total 7185 1634 342 Output Total 1850 695 300 Balance 5294 939 42 Weight 71.8 kg 72.4 kg General appearance: PRESENT: no acute distress, cooperative, morbidly obese Head exam: PRESENT: normocephalic Eye exam: PRESENT: EOMI Mouth exam: PRESENT: neck supple Neck exam: ABSENT: JVD Respiratory exam: PRESENT: rhonchi - Bilateral Cardiovascular exam: PRESENT: RRR. ABSENT: gallop GI/Abdominal exam: PRESENT: soft. ABSENT: distended Neurological exam: PRESENT: alert, awake, oriented to situation Skin exam: PRESENT: dry, warm. ABSENT: cyanosis Results Laboratory Results: 06/04/17 06:05 06/05/17 05:17 06/05/17 05:17 Sodium 124.5 L Potassium 4.1 Chloride 78 L Carbon Dioxide 40 H* Anion Gap 7 BUN 29 H Creatinine 0.51 L Est GFR ( Amer) > 60 Est GFR (Non-Af Amer) > 60 Glucose 100 Calcium 9.2 Impressions: Chest/Abdomen CTA 05/28/17 11:37 IMPRESSION: 1. NORMAL CTA OF THE CHEST. NO PULMONARY EMBOLI. 2. EMPHYSEMATOUS CHANGES WITH CHRONIC SCARRING. IRREGULAR PARENCHYMAL DENSITY IN THE POSTERIOR RIGHT LOWER LOBE COULD REPRESENT FOCAL PNEUMONIA. GIVEN HISTORY OF LUNG CANCER, CANNOT EXCLUDE RECURRENT DISEASE OR METASTASIS. 3. OTHER CHRONIC FINDINGS ABOVE. Chest X-Ray 06/04/17 00:00 IMPRESSION: Post therapeutic changes in the right chest. No acute infiltrates. Assessment & Plan - Diagnosis (1) COPD (chronic obstructive pulmonary disease) Qualifiers: COPD type: unspecified COPD Qualified Code(s): J44.9 - Chronic obstructive pulmonary disease, unspecified Is this a current diagnosis for this admission?: Yes (2) Pneumonia Qualifiers: Pneumonia type: due to unspecified organism Laterality: left Lung location: lower lobe of lung Qualified Code(s): J18.1 - Lobar pneumonia, unspecified organism Is this a current diagnosis for this admission?: Yes (3) Sepsis Qualifiers: Sepsis type: sepsis due to unspecified organism Qualified Code(s): A41.9 - Sepsis, unspecified organism Is this a current diagnosis for this admission?: Yes (4) UTI (urinary tract infection) Qualifiers: Urinary tract infection type: site unspecified Hematuria presence: without hematuria Qualified Code(s): N39.0 - Urinary tract infection, site not specified (5) GERD (gastroesophageal reflux disease) Qualifiers: Esophagitis presence: without esophagitis Qualified Code(s): K21.9 - Gastro -esophageal reflux disease without esophagitis Is this a current diagnosis for this admission?: Yes (6) Hypertension Qualifiers: Hypertension type: essential hypertension Qualified Code(s): I10 - Essential (primary) hypertension Is this a current diagnosis for this admission?: Yes (7) Lung cancer Qualifiers: Lung location: unspecified part of lung Is this a current diagnosis for this admission?: Yes - Time Time Spent with patient: Less than 15 minutes - Plan Summary Plan Summary: Continue current steroids. Continue antibiotics. Recheck serum sodium in the morning.
[2017-06-05] MEDS: FLUCONAZOLE 100 MG TABLET PO SCH (17:45)
[2017-06-06] MEDS: IPRATROPIUM/ALBUTEROL 0.5-2.5 MG/3 ML AMPUL NEB SCH ×6 (01:09→20:31)
[2017-06-06 06:02] LABS: BLOOD UREA NITROGEN 25 mg/dL (7-20); CALCIUM 8.6 mg/dL (8.4-10.2); CHLORIDE 77 mmol/L (98-107); GLUCOSE 104 mg/dL (75-110); POTASSIUM 4.3 mmol/L (3.6-5.0)
[2017-06-06] MEDS: FAMOTIDINE 20 MG TABLET PO SCH (06:05)
[2017-06-06 06:08] LABS: CARBON DIOXIDE 39 mmol/L (22-30)
[2017-06-06 06:09] LABS: ANION GAP 6 (5-19)
[2017-06-06] MEDS: TOBRAMYCIN SULFATE NEB 40 MG/ML 30 ML NEB SCH ×2 (08:46→20:31)
--- NOTE | 2017-06-06 09:58 | PDOC PROGRESS REPORT ---
Subjective Progress Note for:: 06/06/17 Subjective:: Patient overall is better but feels unchanged from yesterday. Denies having diarrhea. No respiratory distress, in particular spikes, abdominal pain, nausea or vomiting. Overall feels weak. Patient now agrees to go to subacute facility for rehabilitation. Physical Exam Vital Signs: Temp Pulse Resp BP Pulse Ox 98.3 F 92 20 126/51 H 99 06/06/17 08:00 06/06/17 08:00 06/06/17 08:00 06/06/17 08:00 06/06/17 08:00 Pulse Oximeter Continuous Start: 05/30/17 19: 00 Freq: RTQ4 Status: Active Document 06/06/17 04:20 [facility] (Rec: 06/06/17 05:03 [facility] [email or web address]) Pulse Oximetry Assessment Oxygen Saturation (92-100) 100 Oxygen Flow Rate (L/min) 5 Oxygen Delivery Method Nasal Cannula Equipment Usage Equipment in Use Continuous SpO2 Machine # 1 Intake & Output 06/05/17 06/06/17 06/07/17 06:59 06:59 06:59 Intake Total 1634 1219 Output Total 695 900 Balance 939 319 Weight 72.4 kg 71.1 kg General appearance: PRESENT: no acute distress, cooperative Head exam: PRESENT: normocephalic Eye exam: PRESENT: EOMI Mouth exam: PRESENT: moist, neck supple Neck exam: ABSENT: JVD Respiratory exam: PRESENT: rhonchi - Scattered bilateral, unlabored, other - Nasal cannula oxygen. ABSENT: wheezes Cardiovascular exam: PRESENT: RRR. ABSENT: gallop GI/Abdominal exam: PRESENT: soft. ABSENT: distended, tenderness Extremities exam: PRESENT: other - Trace pretibial edema Neurological exam: PRESENT: alert, awake, oriented to situation Skin exam: PRESENT: dry, warm. ABSENT: cyanosis Results Laboratory Results: 06/04/17 06:05 06/06/17 05:11 06/06/17 05:11 Sodium 122.0 L Potassium 4.3 Chloride 77 L Carbon Dioxide 39 H Anion Gap 6 BUN 25 H Creatinine 0.40 L Est GFR ( Amer) > 60 Est GFR (Non-Af Amer) > 60 Glucose 104 Calcium 8.6 Impressions: Chest/Abdomen CTA 05/28/17 11:37 IMPRESSION: 1. NORMAL CTA OF THE CHEST. NO PULMONARY EMBOLI. 2. EMPHYSEMATOUS CHANGES WITH CHRONIC SCARRING. IRREGULAR PARENCHYMAL DENSITY IN THE POSTERIOR RIGHT LOWER LOBE COULD REPRESENT FOCAL PNEUMONIA. GIVEN HISTORY OF LUNG CANCER, CANNOT EXCLUDE RECURRENT DISEASE OR METASTASIS. 3. OTHER CHRONIC FINDINGS ABOVE. Chest X-Ray 06/04/17 00:00 IMPRESSION: Post therapeutic changes in the right chest. No acute infiltrates. Assessment & Plan - Diagnosis (1) Pneumonia Qualifiers: Pneumonia type: due to unspecified organism Laterality: left Lung location: lower lobe of lung Qualified Code(s): J18.1 - Lobar pneumonia, unspecified organism Is this a current diagnosis for this admission?: Yes (2) Sepsis Qualifiers: Sepsis type: sepsis due to unspecified organism Qualified Code(s): A41.9 - Sepsis, unspecified organism Is this a current diagnosis for this admission?: Yes (3) UTI (urinary tract infection) Qualifiers: Urinary tract infection type: site unspecified Hematuria presence: without hematuria Qualified Code(s): N39.0 - Urinary tract infection, site not specified (4) COPD (chronic obstructive pulmonary disease) Qualifiers: COPD type: unspecified COPD Qualified Code(s): J44.9 - Chronic obstructive pulmonary disease, unspecified Is this a current diagnosis for this admission?: Yes (5) Hyponatremia Is this a current diagnosis for this admission?: Yes (6) GERD (gastroesophageal reflux disease) Qualifiers: Esophagitis presence: without esophagitis Qualified Code(s): K21.9 - Gastro -esophageal reflux disease without esophagitis Is this a current diagnosis for this admission?: Yes (7) Hypertension Qualifiers: Hypertension type: essential hypertension Qualified Code(s): I10 - Essential (primary) hypertension Is this a current diagnosis for this admission?: Yes (8) Lung cancer Qualifiers: Lung location: unspecified part of lung Is this a current diagnosis for this admission?: Yes - Time Time Spent with patient: 25-34 minutes - Plan Summary Plan Summary: Patient will be placed on fluid restriction to 1.2 L per day. We will check serum sodium in a.m. 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 Patient has history of lung cancer. We will continue current antibiotic. Continue Cipro IV while in the hospital. Continue tobramycin inhaler. We will consult transportation planner for subacute rehabilitation. Continue supportive care.
[2017-06-06] MEDS: ATORVASTATIN CALCIUM 10 MG TABLET PO SCH (10:00)
[2017-06-06] MEDS: TIOTROPIUM BROMIDE DPI 5 CAP/KIT (18 MCG/CAP) IH SCH (10:56)
[2017-06-06] MEDS: FLUTICASONE/SALMETEROL DISKUS 500-50 MCG/DOSE IH SCH ×2 (10:56→21:27)
[2017-06-06] MEDS: FLUTICASONE NASAL SPRAY 50 MCG/SPRY 120 SPRAY/16 GM NASL SCH (10:56)
[2017-06-06] MEDS: MONTELUKAST SODIUM 10 MG TABLET PO SCH (10:57)
[2017-06-06] MEDS: ENOXAPARIN SODIUM INJ 40 MG/0.4 ML DISP.SYRIN SUBCUT SCH (10:57)
[2017-06-06] MEDS: PREDNISONE 20 MG TABLET PO SCH (10:59)
[2017-06-06] MEDS: CIPROFLOXACIN 400 MG/D5W RTU 400 MG/200 ML RTUPB IV SCH ×2 (13:52→21:27)
[2017-06-06] MEDS: FLUCONAZOLE 100 MG TABLET PO SCH (18:24)
[2017-06-06] MEDS ORDERED: NORMAL SALINE 1000 ML 1,000 ML IV PRN (21:06)
--- NOTE | 2017-06-06 21:22 | PDOC CONSULTATION ---
Consultation Consult Date: 06/06/17 Attending physician:: DARREN ADDISON Consult reason:: I was asked by Dr. Addison to see this patient because of worsening hyponatremia. History of Present Illness Admission Date/PCP: 05/28/17 15:23 DERIC SCHUMACHER PA-C History of Present Illness: Patient is an 81-year-old lady with history of lung cancer status post CyberKnife resection who was admitted on 05/28/2017 because of shortness of breath. She has been treated for pneumonia, sepsis, COPD, and UTI. She also presented with hyponatremia with initial sodium of 128.7 on admission. Her chloride was also low at the time of 87. She was given IV fluids since admission with 2-3 L IV fluid boluses initially. The normal saline was continued until about June 02. Her sodium improved to 135.2 on May 30 with chloride improving as well to 96 and CO2 improving to 30. Patient's IV fluid seems to have been discontinued either on June 02 or . Since then the patient's sodium and chloride continues to go down. She has a sodium of 130.4 on June 04 and today it is 122 with a low chloride of 77. She is currently on fluid restriction. Patient tells me that her oral solids and fluid intake is fair. Patient was also given Lasix between May 31 - June 03. She has not had any IV fluids since June 03. Past Medical History Pulmonary Medical History: Reports: Bronchitis, Chronic Obstructive Pulmonary Disease (COPD) Neurological Medical History: Reports: Seizures Malignancy Medical History: Reports: Lung Cancer - Status post CyberKnife resection. GI Medical History: Reports: Gastroesophageal Reflux Disease Musculoskeltal Medical History: Reports: Arthritis Psychiatric Medical History: Reports: Depression Past Surgical History Past Surgical History: Reports: Hysterectomy, Other - Partial colectomy for polyp. Status post kyphoplasty of T-spine. Social History Information Source: [facility] Records Lives with: Alone Smoking Status: Former Smoker Cigarettes Packs Per Day: 1 Number of Years Smokin Last Time Smoked: 10 years ago Frequency of Alcohol Use: None Hx Recreational Drug Use: No Drugs: None Hx Prescription Drug Abuse: No - Advance Directive Resuscitation Status: Do Not Resuscitate Family History Family History: CAD - Father, Malignancy - Breast cancer on her mother Parental Family History Reviewed: Yes Children Family History Reviewed: Unknown Sibling(s) Family History Reviewed.: Unknown Medication/Allergy Home Medications: Albuterol Sulfate [Ventolin 0.083% Neb 2.5 mg/3 mL Ampul] 2.5 mg NEB RTDAILY Albuterol Sulfate [Ventolin Hfa] 2 puff IH Q4HP PRN 05/29/17 Atorvastatin Calcium [Lipitor 10 mg Tablet] 10 mg PO DAILY 05/29/17 Esomeprazole Magnesium [Nexium 24Hr] 22.3 mg PO DAILY 05/29/17 Fluticasone Propionate [Flonase Nasal Coleridge 50 Mcg/Coleridge 16 gm] 1 spray NASL DAILY 05/29/17 Fluticasone/Salmeterol [Advair 500-50 Diskus 28 Dose] 1 puff IH Q12 05/29/17 Montelukast Sodium [Singulair 10 mg Tablet] 10 mg PO QPM 05/29/17 Naproxen [Naprosyn] 500 mg PO Q12 05/29/17 Ramipril [Altace 5 mg Capsule] 5 mg PO Q12 05/29/17 Tiotropium Butler [Spiriva Respimat] 2 puff IH DAILY 05/29/17 Allergies/Adverse Reactions: adhesive tape [Adhesive Tape] Allergy (Severe, Verified 03/16/12 08:45) ibandronate sodium [From Boniva] Allergy (Severe, Verified 03/16/12 08:45) Penicillins Allergy (Severe, Verified 03/16/12 08:45) Sulfa (Sulfonamide Antibiotics) Allergy (Severe, Verified 03/16/12 08:45) oysters Allergy (Uncoded 09/07/12 09:56) throat closes Review of Systems All systems: reviewed and no additional remarkable complaints except as stated Review of Systems: Constitutional: ABSENT: chills, fatigue, fever(s), headache(s), weight gain, weight loss Eyes: ABSENT: visual disturbances Ears: ABSENT: hearing changes Cardiovascular: ABSENT: chest pain, dyspnea on exertion, edema, orthropnea, palpitations Respiratory: ABSENT: Hemoptysis; admits shortness of breath and cough Gastrointestinal: ABSENT: abdominal pain, constipation, diarrhea, hematemesis, hematochezia, nausea, vomiting Genitourinary: ABSENT: dysuria, hematuria Musculoskeletal: ABSENT: joint swelling Integumentary: ABSENT: rash, wounds Neurological: ABSENT: abnormal gait, abnormal speech, confusion, dizziness, focal weakness, numbness, syncope Psychiatric: ABSENT: anxiety, depression Endocrine: ABSENT: cold intolerance, heat intolerance, polydipsia, polyuria Hematologic/Lymphatic: ABSENT: easy bleeding, easy bruising, lymphadenopathy Physical Exam Vital Signs: Temp Pulse Resp BP Pulse Ox 98.1 F 87 20 119/56 L 91 L 06/06/17 19:48 06/06/17 19:48 06/06/17 19:48 06/06/17 19:48 06/06/17 19:48 Pulse Oximeter Continuous Start: 05/30/17 19: 00 Freq: RTQ4 Status: Active Document 06/06/17 16:27 [facility] (Rec: 06/06/17 17:27 [facility] [email or web address]) Pulse Oximetry Assessment Oxygen Saturation (92-100) 97 Oxygen Flow Rate (L/min) 3 Oxygen Delivery Method Nasal Cannula Equipment Usage Equipment in Use Continuous SpO2 Machine # N-1 Intake & Output 06/05/17 06/06/17 06/07/17 06:59 06:59 06:59 Intake Total 1634 1219 1700 Output Total 695 900 475 Balance 956 313 6964 Weight 72.4 kg 71.1 kg Exam: General appearance: no acute distress, cooperative, well-developed, well- nourished she was receiving nebulized sensation when I saw her Head exam: PRESENT: atraumatic, normocephalic Eye exam: PRESENT: Conjunctiva pale, EOMI, PERRLA. ABSENT: conjunctival injection, scleral icterus Mouth exam: PRESENT: moist, neck supple, tongue midline Neck exam: PRESENT: full ROM. ABSENT: carotid bruit, JVD, lymphadenopathy, thyromegaly Respiratory exam: PRESENT: Coarse breath to auscultation bilaterally anteriorly. ABSENT: rales, rhonchi, stridor, wheezes Cardiovascular exam: PRESENT: RRR, +S1, +S2. ABSENT: systolic murmur Pulses: PRESENT: normal radial pulses, normal dorsalis pedis pulses GI/Abdominal exam: PRESENT: normal bowel sounds, soft. ABSENT: guarding, mass, tenderness Rectal exam: deferred Extremities exam: PRESENT: full ROM. ABSENT: calf tenderness, pedal edema Musculoskeletal: PRESENT: full ROM. ABSENT: deformity Neurological exam: PRESENT: alert, Awake, Oriented to person, Oriented to place , Oriented to time, reflexes normal, CN II-XII grossly intact. ABSENT: motor sensory deficit Psychiatric exam: PRESENT: appropriate affect, normal mood. ABSENT: homicidal ideation, suicidal ideation Skin exam: PRESENT: intact, dry, warm. Positive pallor ABSENT: rash Results Laboratory Results: 06/04/17 06:05 06/06/17 05:11 06/06/17 05:11 Sodium 122.0 L Potassium 4.3 Chloride 77 L Carbon Dioxide 39 H Anion Gap 6 BUN 25 H Creatinine 0.40 L Est GFR ( Amer) > 60 Est GFR (Non-Af Amer) > 60 Glucose 104 Calcium 8.6 Impressions: Chest/Abdomen CTA 05/28/17 11:37 IMPRESSION: 1. NORMAL CTA OF THE CHEST. NO PULMONARY EMBOLI. 2. EMPHYSEMATOUS CHANGES WITH CHRONIC SCARRING. IRREGULAR PARENCHYMAL DENSITY IN THE POSTERIOR RIGHT LOWER LOBE COULD REPRESENT FOCAL PNEUMONIA. GIVEN HISTORY OF LUNG CANCER, CANNOT EXCLUDE RECURRENT DISEASE OR METASTASIS. 3. OTHER CHRONIC FINDINGS ABOVE. Chest X-Ray 06/04/17 00:00 IMPRESSION: Post therapeutic changes in the right chest. No acute infiltrates. Assessment & Plan - Diagnosis (1) Hyponatremia Is this a current diagnosis for this admission?: Yes Plan: Patient's hyponatremia initially responded to IV fluids on admission. Subsequently her sodium decreased again upon discontinuation of her IV fluids. Given that her chloride is also decreasing, this could indicate that the patient is actually volume depleted with associated alkalemia which also getting worse for the last 3 days. I think before we consider this hyponatremia as part of a possible SIADH due to patient's pulmonary disease at think we should consider a strong possibility of volume depletion. I would like to try IV fluids with normal saline at 150 mL an hour and recheck her sodium level in the morning. We will recheck the patient's urine sodium. Monitor patient. (2) COPD (chronic obstructive pulmonary disease) Qualifiers: COPD type: unspecified COPD Qualified Code(s): J44.9 - Chronic obstructive pulmonary disease, unspecified Is this a current diagnosis for this admission?: Yes (3) Pneumonia Qualifiers: Pneumonia type: due to unspecified organism Laterality: left Lung location: lower lobe of lung Qualified Code(s): J18.1 - Lobar pneumonia, unspecified organism Is this a current diagnosis for this admission?: Yes (4) UTI (urinary tract infection) Qualifiers: Urinary tract infection type: site unspecified Hematuria presence: without hematuria Qualified Code(s): N39.0 - Urinary tract infection, site not specified Is this a current diagnosis for this admission?: Yes - Notes Notes: Thank you very much for this consultation. I will follow the patient with you. - Time Time Spent: 50 to 70 Minutes
[2017-06-07] MEDS: IPRATROPIUM/ALBUTEROL 0.5-2.5 MG/3 ML AMPUL NEB SCH ×6 (00:01→20:30)
[2017-06-07 05:22] LABS: BLOOD UREA NITROGEN 22 mg/dL (7-20); CALCIUM 8.4 mg/dL (8.4-10.2); CREATININE RESULT 0.39 mg/dL (0.52-1.25); GLUCOSE 90 mg/dL (75-110); POTASSIUM 4.2 mmol/L (3.6-5.0)
[2017-06-07 05:43] LABS: ANION GAP 6 (5-19); CARBON DIOXIDE 36 mmol/L (22-30); CHLORIDE 78 mmol/L (98-107)
[2017-06-07 05:54] LABS: SODIUM 119.8 mmol/L (137-145)
[2017-06-07 06:03] LABS: HEMATOCRIT 31.4 % (36.0-47.0); HEMOGLOBIN 10.5 g/dL (12.0-15.5); HGB HCT DIFFERENCE 0.1; MEAN CORPUSCULAR HEMOGLOBIN 29.2 pg (27.0-33.4); MEAN CORPUSCULAR HGB CONC 33.6 g/dL (32.0-36.0); MEAN CORPUSCULAR VOLUME 87 fl (80-97); RED BLOOD COUNT 3.61 10^6/uL (3.72-5.28); RED CELL DISTRIBUTION WIDTH 13.6 % (11.5-14.0); WHITE BLOOD COUNT 18.4 10^3/uL (4.0-10.5)
[2017-06-07 06:10] LABS: BAND NEUTROPHILS % (MANUAL) 1 % (3-5); BASOPHILS % (MANUAL) 0 % (0-2); EOSINOPHILS % (MANUAL) 1 % (0-6); LYMPHOCYTES % (MANUAL) 11 % (13-45); TOTAL CELLS COUNTED 100; TOXIC GRANULATION SLIGHT
[2017-06-07 06:11] LABS: BURR CELLS SLIGHT; OVALOCYTES SLIGHT; POIKILOCYTOSIS SLIGHT; TEAR DROP CELLS SLIGHT
[2017-06-07] MEDS: LANSOPRAZOLE 30 MG TAB.RAP.DR PO SCH (06:36)
[2017-06-07] MEDS: TOBRAMYCIN SULFATE NEB 40 MG/ML 30 ML NEB SCH ×2 (08:09→20:29)
[2017-06-07] MEDS: PREDNISONE 20 MG TABLET PO SCH (10:31)
[2017-06-07] MEDS: ATORVASTATIN CALCIUM 10 MG TABLET PO SCH (10:31)
[2017-06-07] MEDS: FLUTICASONE NASAL SPRAY 50 MCG/SPRY 120 SPRAY/16 GM NASL SCH (10:32)
[2017-06-07] MEDS: FLUTICASONE/SALMETEROL DISKUS 500-50 MCG/DOSE IH SCH ×2 (10:32→22:00)
[2017-06-07] MEDS: ENOXAPARIN SODIUM INJ 40 MG/0.4 ML DISP.SYRIN SUBCUT SCH (10:32)
[2017-06-07] MEDS: MONTELUKAST SODIUM 10 MG TABLET PO SCH (10:32)
[2017-06-07] MEDS: CIPROFLOXACIN 400 MG/D5W RTU 400 MG/200 ML RTUPB IV SCH ×2 (10:32→22:00)
[2017-06-07] MEDS: TIOTROPIUM BROMIDE DPI 5 CAP/KIT (18 MCG/CAP) IH SCH (10:32)
[2017-06-07 11:59] LABS: BLOOD UREA NITROGEN 19 mg/dL (7-20); CALCIUM 8.6 mg/dL (8.4-10.2); CHLORIDE 74 mmol/L (98-107); CREATININE RESULT 0.45 mg/dL (0.52-1.25); GLUCOSE 100 mg/dL (75-110); POTASSIUM 3.8 mmol/L (3.6-5.0)
[2017-06-07 12:06] LABS: ANION GAP 5 (5-19); CARBON DIOXIDE 39 mmol/L (22-30)
--- NOTE | 2017-06-07 12:20 | PROGRESS NOTE E ---
Progress Note NAME: JD LAWRENCE : 1935 AGE: 81Y DATE: 06/06/2017 ROOM: 324 SUBJECTIVE: The patient is an 81-year-old female who came in with severe exacerbation, suspect pneumonia, right upper lobe, etiology possibly due to pseudomonas aeruginosa. The patient was in acute respiratory failure requiring 90% mechanical ventilation. The patient improved and currently doing better, still weak and wheezy. Sodium was noted to drop to 122 two days ago and has not improved yet. No vomiting. No diarrhea. No fever or chills. Blood pressure seemed to be on the low side over the last few days in the 100's. Denies any hemoptysis. Denies any increase in sputum production. Currently on Cipro and nebulized tobramycin. PHYSICAL EXAM: GENERAL: The patient is awake, alert and oriented x3. VITAL SIGNS: Temperature 97.6 with T-max of 98.9, blood pressure is 102/50, 130/53 and 134/40 today. Heart rate is 95, respiratory rate is 20, saturation is 91% to 94% range on 2 L nasal cannula. EYES: No jaundice noted. EARS, NOSE, AND THROAT: No ear drainage. No nasal discharge. HEAD AND NECK: No scalp tenderness, no neck tenderness. Neck is supple. CHEST AND LUNGS: No wheezing or rhonchi. No coarse crackles. CARDIOVASCULAR: S1 and S2 is distant. Normal rate and rhythm. ABDOMEN: Flabby, positive bowel sounds, soft, nondistended, nontender. EXTREMITIES: No joint swelling, no cellulitis. LABORATORY DATA: CBC done on 06/04/2017 showed white count of 17.8 up from 4.3, which may be realted to steroid use; hemoglobin is 11.1, and hematocrit is 33.9 and platelets was 254,000. No bands noted. Chemistry done today showed sodium 122 down from 124 yesterday. Potassium 4.3, chloride 107, CO2 is 39, suggesting metabolic alkalosis. BUN 35, creatinine 0.4, glucose 104, calcium 8.6, magnesium 1.6. Fluid culture done on 05/30/2017 showed pseudomonas aeruginosa sensitive to Levaquin. ASSESSMENT: 1. ACUTE RESPIRATORY FAILURE REQUIRING MECHANICAL VENTILATOR, CURRENTLY IMPROVED AND APPEARED TO BE STABLE. CURRENTLY OFF BIPAP THERAPY. 2. COPD EXACERBATION, CURRENTLY IMPROVED. NOT IN ACUTE BRONCHOSPASM. REQUIRING OXYGEN AT 3 L. 3. PULMONARY INFILTRATE RIGHT UPPER LOBE, STATUS POST LOBECTOMY, POSSIBLY SCARRING. PNEUMONIC PROCESS CANNOT BE COMPLETELY EXCLUDED BASED ON THE CHEST CT SCAN DONE LAST WEEK. MALIGNANCY CANNOT BE COMPLETELY EXCLUDED WELL. 4. URINARY TRACT INFECTION. 5. HYPONATREMIA, SEVERE OVER THE LAST 4 DAYS, PROBABLY RELATED TO SIADH DUE TO PNEUMONIA AND HISTORY OF MALIGNANCY. THE PATIENT CAME IN WITH NORMAL SODIUM. CURRENTLY THE PATIENT IS PRESENTING WITH METABOLIC ALKALOSIS PROBABLY DUE TO VOLUME DEPLETION. BLOOD PRESSURE SEEMS ON THE LOW SIDE. THE PATIENT MAY REQUIRE REPLENISHMENT OF VOLUME DEPLETION AND CORRECTION OF THE SEVERE HYPONATREMIA BEFORE POSSIBLE DISCHARGE. 6. AGREE WITH CIPROFLOXACIN THERAPY ORAL FOR 2 WEEKS IF DISCHARGED. 7. MAY DISCONTINUE TOBRAMYCIN NEBULIZER TREATMENT WHEN DISCHARGED. 8. TAPER PREDNISONE DOSE. 9. NEPHROLOGY CONSULT FOR SEVERE HYPONATERMIA. 10. CONTINUE ADVAIR AND SPIRIVA INHALERS. CONTINUE NEBULIZER TREATMENT EVERY 6 HOURS NEEDED. If you have any questions, please feel free to call me. DICTATING PHYSICIAN: DARREN ADDISON MD,SAHARA,MPH [id number] PHY#: [id number] [id number] JOB#: [id number] ACCT: [id number] cc: > MTDD
[2017-06-07 12:32] LABS: SODIUM 117.8 mmol/L (137-145)
--- NOTE | 2017-06-07 14:10 | PDOC PROGRESS REPORT ---
Subjective Progress Note for:: 06/07/17 Subjective:: Complains of a nonproductive cough but overall reports she is feeling better. Physical Exam Vital Signs: Temp Pulse Resp BP Pulse Ox 98.1 F 92 22 H 102/42 L 95 06/07/17 11:59 06/07/17 12:26 06/07/17 12:26 06/07/17 11:59 06/07/17 12:26 Pulse Oximeter Continuous Start: 05/30/17 19: 00 Freq: RTQ4 Status: Active Document 06/07/17 12:26 [facility] (Rec: 06/07/17 12:29 LDA [email or web address]) Pulse Oximetry Assessment Oxygen Saturation (92-100) 95 Oxygen Flow Rate (L/min) 4 Oxygen Delivery Method Nasal Cannula Equipment Usage Equipment in Use Continuous SpO2 Machine # n-1 Intake & Output 06/06/17 06/07/17 06/08/17 06:59 06:59 06:59 Intake Total 1219 3375 240 Output Total 900 975 325 Balance 319 2400 -85 Weight 71.1 kg 72.8 kg General appearance: PRESENT: no acute distress Eye exam: PRESENT: conjunctiva pink. ABSENT: scleral icterus Mouth exam: PRESENT: moist, tongue midline Neck exam: ABSENT: JVD Respiratory exam: PRESENT: clear to auscultation evelina. ABSENT: rales, rhonchi, wheezes Cardiovascular exam: PRESENT: RRR. ABSENT: diastolic murmur, rubs, systolic murmur GI/Abdominal exam: PRESENT: normal bowel sounds, soft. ABSENT: distended, guarding, mass, organolmegaly, rebound, tenderness Extremities exam: ABSENT: calf tenderness, clubbing, pedal edema Neurological exam: PRESENT: alert, awake, oriented to person, oriented to place , oriented to time, oriented to situation, CN II-XII grossly intact. ABSENT: motor sensory deficit Psychiatric exam: PRESENT: appropriate affect Skin exam: PRESENT: dry, intact, warm. ABSENT: cyanosis, rash Results Laboratory Results: 06/07/17 05:00 06/07/17 11:28 06/07/17 06/07/17 06/07/17 05:00 05:00 11:28 WBC 18.4 H RBC 3.61 L Hgb 10.5 L Hct 31.4 L MCV 87 MCH 29.2 MCHC 33.6 RDW 13.6 Plt Count 198 Seg Neutrophils % Not Reportable Lymphocytes % Not Reportable Monocytes % Not Reportable Eosinophils % Not Reportable Basophils % Not Reportable Absolute Neutrophils Not Reportable Absolute Lymphocytes Not Reportable Absolute Monocytes Not Reportable Absolute Eosinophils Not Reportable Absolute Basophils Not Reportable Sodium 119.8 L* 117.8 L* Potassium 4.2 3.8 Chloride 78 L 74 L Carbon Dioxide 36 H 39 H Anion Gap 6 5 BUN 22 H 19 Creatinine 0.39 L 0.45 L Est GFR ( Amer) > 60 > 60 Est GFR (Non-Af Amer) > 60 > 60 Glucose 90 100 Calcium 8.4 8.6 Impressions: Chest/Abdomen CTA 05/28/17 11:37 IMPRESSION: 1. NORMAL CTA OF THE CHEST. NO PULMONARY EMBOLI. 2. EMPHYSEMATOUS CHANGES WITH CHRONIC SCARRING. IRREGULAR PARENCHYMAL DENSITY IN THE POSTERIOR RIGHT LOWER LOBE COULD REPRESENT FOCAL PNEUMONIA. GIVEN HISTORY OF LUNG CANCER, CANNOT EXCLUDE RECURRENT DISEASE OR METASTASIS. 3. OTHER CHRONIC FINDINGS ABOVE. Chest X-Ray 06/04/17 00:00 IMPRESSION: Post therapeutic changes in the right chest. No acute infiltrates. Assessment & Plan - Diagnosis (1) Sepsis Qualifiers: Sepsis type: sepsis due to unspecified organism Qualified Code(s): A41.9 - Sepsis, unspecified organism Is this a current diagnosis for this admission?: Yes Plan: Secondary to pneumonia. Patient has improved. (2) Pneumonia Qualifiers: Pneumonia type: due to unspecified organism Laterality: left Lung location: lower lobe of lung Qualified Code(s): J18.1 - Lobar pneumonia, unspecified organism Is this a current diagnosis for this admission?: Yes Plan: Continue with IV Cipro and inhaled tobramycin. (3) COPD (chronic obstructive pulmonary disease) Qualifiers: COPD type: unspecified COPD Qualified Code(s): J44.9 - Chronic obstructive pulmonary disease, unspecified Is this a current diagnosis for this admission?: Yes Plan: Patient has acute COPD exacerbation. This been treated with steroids, nebulizers, BiPAP. (4) Hypertension Qualifiers: Hypertension type: essential hypertension Qualified Code(s): I10 - Essential (primary) hypertension Is this a current diagnosis for this admission?: Yes Plan: Blood pressures are stable. (5) Lung cancer Qualifiers: Lung location: unspecified part of lung Is this a current diagnosis for this admission?: Yes Plan: The patient had a CyberKnife 4 years ago. She had a PET scan in March of this year that showed no evidence for recurrence. (6) Osteoporosis Is this a current diagnosis for this admission?: Yes (7) DNR (do not resuscitate) Is this a current diagnosis for this admission?: Yes Plan: the patient requests to be a DO NOT RESUSCITATE. (8) Hyponatremia Is this a current diagnosis for this admission?: Yes Plan: The patient received IV fluids overnight and is still hyponatremic. Continue the fluid restriction. Nephrology is following. - Time Time Spent with patient: 25-34 minutes - Plan Summary Plan Summary: Patient will go to rehab when a bed is available.
[2017-06-07] MEDS ORDERED: TOLVAPTAN 15 MG TABLET PO ONE (15:00)
--- NOTE | 2017-06-07 16:06 | PDOC PROGRESS REPORT ---
Subjective Progress Note for:: 06/07/17 Subjective:: Patient is looking fine today. According to her nurse her oxygen saturation is actually maintaining to be adequate around 90-91%. She is making fair amount of urine output. There is no note of any confusion or disorientation. Patient' s appetite has not always been good according to the daughter. Her sodium is not any better after almost a liter of normal saline so I stopped it earlier. I gave him a dose of tolvaptan about an hour ago. Physical Exam Vital Signs: Temp Pulse Resp BP Pulse Ox 98.1 F 95 22 H 102/42 L 95 06/07/17 11:59 06/07/17 14:00 06/07/17 12:26 06/07/17 11:59 06/07/17 12:26 Pulse Oximeter Continuous Start: 05/30/17 19: 00 Freq: RTQ4 Status: Active Document 06/07/17 12:26 [facility] (Rec: 06/07/17 12:29 LDA [email or web address]) Pulse Oximetry Assessment Oxygen Saturation (92-100) 95 Oxygen Flow Rate (L/min) 4 Oxygen Delivery Method Nasal Cannula Equipment Usage Equipment in Use Continuous SpO2 Machine # [id number] Intake & Output 06/06/17 06/07/17 06/08/17 06:59 06:59 06:59 Intake Total 1219 3375 240 Output Total 900 975 325 Balance 319 2400 -85 Weight 71.1 kg 72.8 kg Exam: General appearance: PRESENT: no acute distress, cooperative, well-developed, well-nourished Head exam: PRESENT: atraumatic, normocephalic Eye exam: PRESENT: conjunctiva pale, PERRLA. ABSENT: scleral icterus Neck exam: ABSENT: JVD Respiratory exam: PRESENT: Diminished breath sounds. ABSENT: crackles, rales, rhonchi, unlabored, wheezes Cardiovascular exam: PRESENT: Regular rate rhythm -+S1, +S2. ABSENT: diastolic murmur, systolic murmur GI/Abdominal exam: PRESENT: normal bowel sounds, soft. ABSENT: guarding, mass, tenderness Extremities exam: ABSENT: No edema Neurological exam: PRESENT: alert, awake, oriented to person, place and time. Skin exam: PRESENT: dry, warm, Results Laboratory Results: 06/07/17 05:00 06/07/17 11:28 06/07/17 06/07/17 06/07/17 05:00 05:00 11:28 WBC 18.4 H RBC 3.61 L Hgb 10.5 L Hct 31.4 L MCV 87 MCH 29.2 MCHC 33.6 RDW 13.6 Plt Count 198 Seg Neutrophils % Not Reportable Lymphocytes % Not Reportable Monocytes % Not Reportable Eosinophils % Not Reportable Basophils % Not Reportable Absolute Neutrophils Not Reportable Absolute Lymphocytes Not Reportable Absolute Monocytes Not Reportable Absolute Eosinophils Not Reportable Absolute Basophils Not Reportable Sodium 119.8 L* 117.8 L* Potassium 4.2 3.8 Chloride 78 L 74 L Carbon Dioxide 36 H 39 H Anion Gap 6 5 BUN 22 H 19 Creatinine 0.39 L 0.45 L Est GFR ( Amer) > 60 > 60 Est GFR (Non-Af Amer) > 60 > 60 Glucose 90 100 Calcium 8.4 8.6 Impressions: Chest/Abdomen CTA 05/28/17 11:37 IMPRESSION: 1. NORMAL CTA OF THE CHEST. NO PULMONARY EMBOLI. 2. EMPHYSEMATOUS CHANGES WITH CHRONIC SCARRING. IRREGULAR PARENCHYMAL DENSITY IN THE POSTERIOR RIGHT LOWER LOBE COULD REPRESENT FOCAL PNEUMONIA. GIVEN HISTORY OF LUNG CANCER, CANNOT EXCLUDE RECURRENT DISEASE OR METASTASIS. 3. OTHER CHRONIC FINDINGS ABOVE. Chest X-Ray 06/04/17 00:00 IMPRESSION: Post therapeutic changes in the right chest. No acute infiltrates. Assessment & Plan - Diagnosis (1) Hyponatremia Is this a current diagnosis for this admission?: Yes Plan: Patient's hyponatremia initially responded to IV fluids on admission. Subsequently her sodium decreased again upon discontinuation of her IV fluids. Given that her chloride is also decreasing, this could indicate that the patient is actually volume depleted with associated alkalemia which also getting worse for the last 3 days. I think before we consider this hyponatremia as part of a possible SIADH due to patient's pulmonary disease at think we should consider a strong possibility of volume depletion. The IV fluids did not seem to improve her sodium, it actually made it worse now down to 117.8. I stop her IV fluids. I gave her a dose of tolvaptan 15 mg. We will recheck her BMP later tonight and tomorrow. Patient may need a maintenance tolvaptan if she continues to be hyponatremic. We will continue to monitor. (2) COPD (chronic obstructive pulmonary disease) Qualifiers: COPD type: unspecified COPD Qualified Code(s): J44.9 - Chronic obstructive pulmonary disease, unspecified Is this a current diagnosis for this admission?: Yes (3) Pneumonia Qualifiers: Pneumonia type: due to unspecified organism Laterality: left Lung location: lower lobe of lung Qualified Code(s): J18.1 - Lobar pneumonia, unspecified organism Is this a current diagnosis for this admission?: Yes (4) UTI (urinary tract infection) Qualifiers: Urinary tract infection type: site unspecified Hematuria presence: without hematuria Qualified Code(s): N39.0 - Urinary tract infection, site not specified Is this a current diagnosis for this admission?: Yes - Time Time with patient: 15-25 minutes
[2017-06-07] MEDS: FLUCONAZOLE 100 MG TABLET PO SCH (18:03)
[2017-06-07 21:49] LABS: BLOOD UREA NITROGEN 19 mg/dL (7-20); CALCIUM 9.5 mg/dL (8.4-10.2); CHLORIDE 76 mmol/L (98-107); CREATININE RESULT 0.45 mg/dL (0.52-1.25); GLUCOSE 148 mg/dL (75-110); POTASSIUM 4.5 mmol/L (3.6-5.0); SODIUM 121.1 mmol/L (137-145)
[2017-06-07 21:56] LABS: ANION GAP 7 (5-19); CARBON DIOXIDE 38 mmol/L (22-30)
[2017-06-08] MEDS: IPRATROPIUM/ALBUTEROL 0.5-2.5 MG/3 ML AMPUL NEB SCH ×6 (04:13→20:45)
[2017-06-08] MEDS: LANSOPRAZOLE 30 MG TAB.RAP.DR PO SCH (05:06)
[2017-06-08 05:35] LABS: ABSOLUTE LYMPHOCYTES (AUTO) 0.9 10^3/uL (0.5-4.7); ABSOLUTE MONOCYTES (AUTO) 1.5 10^3/uL (0.1-1.4); ABSOLUTE NEUT (AUTO) 14.3 10^3/uL (1.7-8.2); BASOPHILS % (AUTO) 0.1 % (0-2); EOSINOPHILS % (AUTO) 0.1 % (0-6); HEMATOCRIT 31.5 % (36.0-47.0); HEMOGLOBIN 10.6 g/dL (12.0-15.5); HGB HCT DIFFERENCE 0.3; LYMPHOCYTES % (AUTO) 5.4 % (13-45); MEAN CORPUSCULAR HEMOGLOBIN 29.6 pg (27.0-33.4); MEAN CORPUSCULAR HGB CONC 33.6 g/dL (32.0-36.0); MEAN CORPUSCULAR VOLUME 88 fl (80-97); MONOCYTES % (AUTO) 9.2 % (3-13); RED BLOOD COUNT 3.58 10^6/uL (3.72-5.28); RED CELL DISTRIBUTION WIDTH 13.6 % (11.5-14.0); SEGMENTED NEUTROPHILS % (AUTO) 85.2 % (42-78); WHITE BLOOD COUNT 16.8 10^3/uL (4.0-10.5)
[2017-06-08 05:46] LABS: BLOOD UREA NITROGEN 17 mg/dL (7-20); CALCIUM 9.9 mg/dL (8.4-10.2); CHLORIDE 82 mmol/L (98-107); CREATININE RESULT 0.44 mg/dL (0.52-1.25); GLUCOSE 101 mg/dL (75-110)
[2017-06-08 06:14] LABS: POTASSIUM 4.2 mmol/L (3.6-5.0); SODIUM 129.1 mmol/L (137-145)
[2017-06-08 06:16] LABS: ANION GAP 3 (5-19); CARBON DIOXIDE 44 mmol/L (22-30)
[2017-06-08] MEDS: TOBRAMYCIN SULFATE NEB 40 MG/ML 30 ML NEB SCH ×2 (08:33→20:45)
[2017-06-08] MEDS: PREDNISONE 20 MG TABLET PO SCH (08:55)
--- NOTE | 2017-06-08 10:09 | PDOC PROGRESS REPORT ---
Subjective Progress Note for:: 06/08/17 Subjective:: Complains of a nonproductive cough Physical Exam Vital Signs: Temp Pulse Resp BP Pulse Ox 98.0 F 88 20 102/52 L 97 06/08/17 08:00 06/08/17 08:33 06/08/17 08:33 06/08/17 08:00 06/08/17 08:33 Pulse Oximeter Continuous Start: 05/30/17 19: 00 Freq: RTQ4 Status: Active Document 06/08/17 08:33 L[facility] (Rec: 06/08/17 08:38 LDA [email or web address]) Pulse Oximetry Assessment Oxygen Saturation (92-100) 97 Oxygen Flow Rate (L/min) 5 Oxygen Delivery Method Nasal Cannula Equipment Usage Equipment in Use Continuous SpO2 Machine # n-1 Intake & Output 06/07/17 06/08/17 06/09/17 06:59 06:59 06:59 Intake Total 3375 1537 Output Total 975 3825 Balance 2400 -2288 Weight 72.8 kg 74.7 kg General appearance: PRESENT: no acute distress Eye exam: PRESENT: conjunctiva pink. ABSENT: scleral icterus Ear exam: PRESENT: normal external ear exam Mouth exam: PRESENT: moist, tongue midline Neck exam: ABSENT: JVD Respiratory exam: PRESENT: rhonchi. ABSENT: rales, wheezes Cardiovascular exam: PRESENT: RRR. ABSENT: diastolic murmur, rubs, systolic murmur GI/Abdominal exam: PRESENT: normal bowel sounds, soft. ABSENT: distended, guarding, mass, organolmegaly, rebound, tenderness Extremities exam: ABSENT: calf tenderness, clubbing, pedal edema Neurological exam: PRESENT: alert, awake, oriented to person, oriented to place , oriented to time, oriented to situation, CN II-XII grossly intact. ABSENT: motor sensory deficit Psychiatric exam: PRESENT: appropriate affect Skin exam: PRESENT: dry, intact, warm. ABSENT: cyanosis, rash Results Laboratory Results: 06/08/17 04:47 06/08/17 04:47 06/07/17 06/07/17 06/08/17 11:28 21:05 04:47 WBC 16.8 H RBC 3.58 L Hgb 10.6 L Hct 31.5 L MCV 88 MCH 29.6 MCHC 33.6 RDW 13.6 Plt Count 182 Seg Neutrophils % 85.2 H Lymphocytes % 5.4 L Monocytes % 9.2 Eosinophils % 0.1 Basophils % 0.1 Absolute Neutrophils 14.3 H Absolute Lymphocytes 0.9 Absolute Monocytes 1.5 H Absolute Eosinophils 0.0 Absolute Basophils 0.0 Sodium 117.8 L* 121.1 L Potassium 3.8 4.5 Chloride 74 L 76 L Carbon Dioxide 39 H 38 H Anion Gap 5 7 BUN 19 19 Creatinine 0.45 L 0.45 L Est GFR ( Amer) > 60 > 60 Est GFR (Non-Af Amer) > 60 > 60 Glucose 100 148 H Calcium 8.6 9.5 06/08/17 04:47 WBC RBC Hgb Hct MCV MCH MCHC RDW Plt Count Seg Neutrophils % Lymphocytes % Monocytes % Eosinophils % Basophils % Absolute Neutrophils Absolute Lymphocytes Absolute Monocytes Absolute Eosinophils Absolute Basophils Sodium 129.1 L Potassium 4.2 Chloride 82 L Carbon Dioxide 44 H* Anion Gap 3 L BUN 17 Creatinine 0.44 L Est GFR ( Amer) > 60 Est GFR (Non-Af Amer) > 60 Glucose 101 Calcium 9.9 Impressions: Chest/Abdomen CTA 05/28/17 11:37 IMPRESSION: 1. NORMAL CTA OF THE CHEST. NO PULMONARY EMBOLI. 2. EMPHYSEMATOUS CHANGES WITH CHRONIC SCARRING. IRREGULAR PARENCHYMAL DENSITY IN THE POSTERIOR RIGHT LOWER LOBE COULD REPRESENT FOCAL PNEUMONIA. GIVEN HISTORY OF LUNG CANCER, CANNOT EXCLUDE RECURRENT DISEASE OR METASTASIS. 3. OTHER CHRONIC FINDINGS ABOVE. Chest X-Ray 06/04/17 00:00 IMPRESSION: Post therapeutic changes in the right chest. No acute infiltrates. Assessment & Plan - Diagnosis (1) Sepsis Qualifiers: Sepsis type: sepsis due to unspecified organism Qualified Code(s): A41.9 - Sepsis, unspecified organism Is this a current diagnosis for this admission?: Yes Plan: Secondary to pneumonia. Growing Pseudomonas from cultures. Patient has improved. (2) Pneumonia Qualifiers: Pneumonia type: due to unspecified organism Laterality: left Lung location: lower lobe of lung Qualified Code(s): J18.1 - Lobar pneumonia, unspecified organism Is this a current diagnosis for this admission?: Yes Plan: Continue with IV Cipro and inhaled tobramycin. (3) COPD (chronic obstructive pulmonary disease) Qualifiers: COPD type: unspecified COPD Qualified Code(s): J44.9 - Chronic obstructive pulmonary disease, unspecified Is this a current diagnosis for this admission?: Yes Plan: Patient has acute COPD exacerbation. This been treated with steroids, nebulizers, BiPAP. (4) Hypertension Qualifiers: Hypertension type: essential hypertension Qualified Code(s): I10 - Essential (primary) hypertension Is this a current diagnosis for this admission?: Yes Plan: Blood pressures are stable. (5) Lung cancer Qualifiers: Lung location: unspecified part of lung Is this a current diagnosis for this admission?: Yes Plan: The patient had a CyberKnife 4 years ago. She had a PET scan in March of this year that showed no evidence for recurrence. (6) Osteoporosis Is this a current diagnosis for this admission?: Yes (7) DNR (do not resuscitate) Is this a current diagnosis for this admission?: Yes Plan: the patient requests to be a DO NOT RESUSCITATE. (8) Hyponatremia Is this a current diagnosis for this admission?: Yes Plan: Patient received a dose of tolvaptan last night. Nephrology is following. - Time Time Spent with patient: 25-34 minutes - Inpatient Certification Medical Necessity: Need Close Monitoring Due to Risk of Patient Decompensation
[2017-06-08] MEDS: ATORVASTATIN CALCIUM 10 MG TABLET PO SCH (10:57)
[2017-06-08] MEDS: MONTELUKAST SODIUM 10 MG TABLET PO SCH (10:58)
[2017-06-08] MEDS: ENOXAPARIN SODIUM INJ 40 MG/0.4 ML DISP.SYRIN SUBCUT SCH (10:59)
[2017-06-08] MEDS: FLUTICASONE/SALMETEROL DISKUS 500-50 MCG/DOSE IH SCH ×2 (10:59→21:44)
[2017-06-08] MEDS: FLUTICASONE NASAL SPRAY 50 MCG/SPRY 120 SPRAY/16 GM NASL SCH (11:03)
[2017-06-08] MEDS: TIOTROPIUM BROMIDE DPI 5 CAP/KIT (18 MCG/CAP) IH SCH (11:03)
[2017-06-08] MEDS: CIPROFLOXACIN 400 MG/D5W RTU 400 MG/200 ML RTUPB IV SCH (11:07)
--- NOTE | 2017-06-08 11:53 | PROGRESS NOTE E ---
Progress Note NAME: JD LAWRENCE : 1935 AGE: 81Y DATE: 06/07/2017 ROOM: 324 SUBJECTIVE: The patient is an 81-year-old female who came in with severe COPD exacerbation, pneumonia. Presented to severe hyponatremia. Patient currently feeling better. Denies any increased cough or sputum production, hemoptysis. No chest tightness. No nausea, vomiting, diarrhea. Denies any current sputum production. Nephrology consulted yesterday and has been managing the patient's hyponatremia. PHYSICAL EXAM: GENERAL: The patient is awake, alert, coherent, oriented. Afebrile and not in severe respiratory distress. VITAL SIGNS: Blood pressure 101/69. Temperature is 98.2. Respiratory rate of 33. saturation is 91% on 3 L oxygen. EYES: No jaundice or pallor noted. EARS, NOSE, AND THROAT: No ear drainage. No nasal discharge. HEAD AND NECK: Neck is supple. CHEST AND LUNGS: No wheezing or rhonchi. No coarse crackles. CARDIOVASCULAR: S1 and S2 is distant. Normal rate and rhythm. ABDOMEN: Flabby, positive bowel sounds, soft, nondistended, nontender. EXTREMITIES: No joint swelling. LABORATORY DATA: Laboratory today shows white count of 18.4 from 20.8, hemoglobin is 10.5, hematocrit is 31.4 and platelet count is 198,000. Chemistry done this morning at 11:28, sodium 117 from 119 at 5:00 a.m. and 124 at 5:00 a.m. yesterday. Potassium is 3.8, chloride is 74, CO2 is 39, BUN is 19, creatinine 0.45, glucose 100, calcium 8.6. ASSESSMENT: 1. SEVERE COPD, CURRENTLY NOT IS ACUTE EXACERBATION. APPEARED TO BE STABLE. 2. PNEUMONIA RIGHT UPPER LOBE MOST LIKELY OVERLYING THE RIGHT UPPER LOBE INFILTRATE FROM SCARRING FROM THE PREVIOUS SURGERY. 3. MOST LIKELY DUE TO RECENT HIGH DOSE OF STEROIDS. 4. SEVERE HYPONATREMIA. CURRENTLY MANAGED BY NEPHROLOGY. PLAN/RECOMMENDATIONS: 1. Will decrease the prednisone dose to 20 mg tablet p.o. daily and will continue to taper the prednisone the next few days. 2. Continue Advair 500 mcg 1 puff daily. 3. Continue Spiriva inhaler one capsule daily. 4. Continue nebulizer treatment every 6 hours as needed. 5. Continue Cipro 400 mg IV q. 12 hours. May change to 500 mg p.o. tablet b.i.d. Total dose of 14 days. 6. May consider tobramycin nebulizer treatment. 7. Recommend pulmonary clinic followup upon discharge. 8. Will sign off tonight. If you have any questions, please feel free to call me. DICTATING PHYSICIAN: DARREN ADDISON M.D. [id number] PHY#: [id number] [id number] JOB#: [id number] ACCT: [id number] cc: >
[2017-06-08] MEDS: FLUCONAZOLE 100 MG TABLET PO SCH (17:36)
[2017-06-08] MEDS: CIPROFLOXACIN HCL 500 MG TABLET PO SCH (17:36)
--- NOTE | 2017-06-08 18:33 | PDOC PROGRESS REPORT ---
Subjective Progress Note for:: 06/08/17 Subjective:: Patient appears to be better today. Daughter confirmed that patient seems to be more awake, alert and involved in a little conversation. I actually noted that today when I went to her room with her daughter at bedside. Patient had good response with tolvaptan last night with good aquaresis. Her sodium is significantly improved today. Physical Exam Vital Signs: Temp Pulse Resp BP Pulse Ox 97.9 F 90 22 H 111/52 L 97 06/08/17 15:25 06/08/17 16:21 06/08/17 16:21 06/08/17 15:25 06/08/17 16:21 Pulse Oximeter Continuous Start: 05/30/17 19: 00 Freq: RTQ4 Status: Active Document 06/08/17 16:21 [facility] (Rec: 06/08/17 17:10 [facility] [email or web address]) Pulse Oximetry Assessment Oxygen Saturation (92-100) 97 Oxygen Flow Rate (L/min) 4.5 Oxygen Delivery Method Nasal Cannula Equipment Usage Equipment in Use Continuous SpO2 Machine # N-1 Intake & Output 06/07/17 06/08/17 06/09/17 06:59 06:59 06:59 Intake Total 3375 1537 776 Output Total 975 3825 1200 Balance 6909 -2483 -456 Weight 72.8 kg 74.7 kg Exam: General appearance: PRESENT: no acute distress, cooperative, well-developed, well-nourished Head exam: PRESENT: atraumatic, normocephalic Eye exam: PRESENT: conjunctiva pale, PERRLA. ABSENT: scleral icterus Neck exam: ABSENT: JVD Respiratory exam: PRESENT: Diminished breath sounds. ABSENT: crackles, rales, rhonchi, unlabored, wheezes Cardiovascular exam: PRESENT: Regular rate rhythm -+S1, +S2. ABSENT: diastolic murmur, systolic murmur GI/Abdominal exam: PRESENT: normal bowel sounds, soft. ABSENT: guarding, mass, tenderness Extremities exam: ABSENT: No edema Neurological exam: PRESENT: alert, awake, oriented to person, place and time. Skin exam: PRESENT: dry, warm, positive pallor Results Laboratory Results: 06/08/17 04:47 06/08/17 04:47 06/07/17 06/08/17 06/08/17 21:05 04:47 04:47 WBC 16.8 H RBC 3.58 L Hgb 10.6 L Hct 31.5 L MCV 88 MCH 29.6 MCHC 33.6 RDW 13.6 Plt Count 182 Seg Neutrophils % 85.2 H Lymphocytes % 5.4 L Monocytes % 9.2 Eosinophils % 0.1 Basophils % 0.1 Absolute Neutrophils 14.3 H Absolute Lymphocytes 0.9 Absolute Monocytes 1.5 H Absolute Eosinophils 0.0 Absolute Basophils 0.0 Sodium 121.1 L 129.1 L Potassium 4.5 4.2 Chloride 76 L 82 L Carbon Dioxide 38 H 44 H* Anion Gap 7 3 L BUN 19 17 Creatinine 0.45 L 0.44 L Est GFR ( Amer) > 60 > 60 Est GFR (Non-Af Amer) > 60 > 60 Glucose 148 H 101 Calcium 9.5 9.9 Impressions: Chest/Abdomen CTA 05/28/17 11:37 IMPRESSION: 1. NORMAL CTA OF THE CHEST. NO PULMONARY EMBOLI. 2. EMPHYSEMATOUS CHANGES WITH CHRONIC SCARRING. IRREGULAR PARENCHYMAL DENSITY IN THE POSTERIOR RIGHT LOWER LOBE COULD REPRESENT FOCAL PNEUMONIA. GIVEN HISTORY OF LUNG CANCER, CANNOT EXCLUDE RECURRENT DISEASE OR METASTASIS. 3. OTHER CHRONIC FINDINGS ABOVE. Chest X-Ray 06/04/17 00:00 IMPRESSION: Post therapeutic changes in the right chest. No acute infiltrates. Assessment & Plan - Diagnosis (1) Hyponatremia Is this a current diagnosis for this admission?: Yes Plan: Patient's sodium level significantly improved after a dose of tolvaptan last night. She is still continuously having good urine output which indicates a good aquaresis. No further dose of tolvaptan tonight. I think her sodium level will either be more improved or stable tomorrow. Patient is clinically better with improved sodium level. (2) COPD (chronic obstructive pulmonary disease) Qualifiers: COPD type: unspecified COPD Qualified Code(s): J44.9 - Chronic obstructive pulmonary disease, unspecified Is this a current diagnosis for this admission?: Yes (3) Pneumonia Qualifiers: Pneumonia type: due to unspecified organism Laterality: left Lung location: lower lobe of lung Qualified Code(s): J18.1 - Lobar pneumonia, unspecified organism Is this a current diagnosis for this admission?: Yes (4) UTI (urinary tract infection) Qualifiers: Urinary tract infection type: site unspecified Hematuria presence: without hematuria Qualified Code(s): N39.0 - Urinary tract infection, site not specified Is this a current diagnosis for this admission?: Yes - Time Time with patient: 15-25 minutes
[2017-06-09] MEDS: IPRATROPIUM/ALBUTEROL 0.5-2.5 MG/3 ML AMPUL NEB SCH ×6 (00:08→20:10)
[2017-06-09] MEDS: LANSOPRAZOLE 30 MG TAB.RAP.DR PO SCH (05:14)
[2017-06-09 05:23] LABS: ABSOLUTE EOSINOPHILS # (AUTO) 0.1 10^3/uL (0.0-0.6); ABSOLUTE LYMPHOCYTES (AUTO) 1.9 10^3/uL (0.5-4.7); ABSOLUTE MONOCYTES (AUTO) 2.1 10^3/uL (0.1-1.4); ABSOLUTE NEUT (AUTO) 14.5 10^3/uL (1.7-8.2); BASOPHILS % (AUTO) 0.1 % (0-2); EOSINOPHILS % (AUTO) 0.8 % (0-6); HEMATOCRIT 32.8 % (36.0-47.0); HEMOGLOBIN 10.7 g/dL (12.0-15.5); HGB HCT DIFFERENCE -0.7; LYMPHOCYTES % (AUTO) 10.2 % (13-45); MEAN CORPUSCULAR HGB CONC 32.6 g/dL (32.0-36.0); MEAN CORPUSCULAR VOLUME 89 fl (80-97); MONOCYTES % (AUTO) 11.1 % (3-13); RED BLOOD COUNT 3.69 10^6/uL (3.72-5.28); SEGMENTED NEUTROPHILS % (AUTO) 77.8 % (42-78); WHITE BLOOD COUNT 18.6 10^3/uL (4.0-10.5)
[2017-06-09 05:41] LABS: BLOOD UREA NITROGEN 20 mg/dL (7-20); CALCIUM 9.5 mg/dL (8.4-10.2); CHLORIDE 83 mmol/L (98-107); CREATININE RESULT 0.44 mg/dL (0.52-1.25); GLUCOSE 96 mg/dL (75-110); SODIUM 132.3 mmol/L (137-145)
[2017-06-09 05:55] LABS: ANION GAP 4 (5-19); CARBON DIOXIDE 45 mmol/L (22-30)
[2017-06-09] MEDS: PREDNISONE 20 MG TABLET PO SCH (08:30)
[2017-06-09] MEDS: TOBRAMYCIN SULFATE NEB 40 MG/ML 30 ML NEB SCH ×2 (08:34→20:09)
[2017-06-09] MEDS: ENOXAPARIN SODIUM INJ 40 MG/0.4 ML DISP.SYRIN SUBCUT SCH (09:07)
[2017-06-09] MEDS: FLUTICASONE/SALMETEROL DISKUS 500-50 MCG/DOSE IH SCH ×2 (09:08→21:19)
[2017-06-09] MEDS: FLUTICASONE NASAL SPRAY 50 MCG/SPRY 120 SPRAY/16 GM NASL SCH (09:09)
[2017-06-09] MEDS: CIPROFLOXACIN HCL 500 MG TABLET PO SCH ×2 (09:10→21:19)
[2017-06-09] MEDS: MONTELUKAST SODIUM 10 MG TABLET PO SCH (09:10)
[2017-06-09] MEDS: ATORVASTATIN CALCIUM 10 MG TABLET PO SCH (09:10)
[2017-06-09] MEDS: TIOTROPIUM BROMIDE DPI 5 CAP/KIT (18 MCG/CAP) IH SCH (11:04)
[2017-06-09] MEDS: ACETAMINOPHEN 325 MG TABLET PO PRN ×2 (11:05→15:46)
--- NOTE | 2017-06-09 12:01 | PDOC PROGRESS REPORT ---
Subjective Progress Note for:: 06/09/17 Subjective:: Denies any complaints. Physical Exam Vital Signs: Temp Pulse Resp BP Pulse Ox 97.4 F 90 20 108/49 L 98 06/09/17 11:11 06/09/17 11:11 06/09/17 11:11 06/09/17 11:11 06/09/17 11:11 Pulse Oximeter Continuous Start: 05/30/17 19: 00 Freq: RTQ4 Status: Active Document 06/09/17 08:33 L[facility] (Rec: 06/09/17 08:48 LDA [email or web address]) Pulse Oximetry Assessment Oxygen Saturation (92-100) 94 Oxygen Flow Rate (L/min) 4 Oxygen Delivery Method Nasal Cannula Equipment Usage Equipment in Use Continuous SpO2 Machine # n-1 Intake & Output 06/08/17 06/09/17 06/10/17 06:59 06:59 06:59 Intake Total 1537 876 Output Total 3825 1875 Balance -7425 -999 Weight 74.7 kg 71.6 kg General appearance: PRESENT: no acute distress Eye exam: PRESENT: conjunctiva pink. ABSENT: scleral icterus Mouth exam: PRESENT: moist, tongue midline Neck exam: ABSENT: JVD Respiratory exam: PRESENT: clear to auscultation evelina. ABSENT: rales, rhonchi, wheezes Cardiovascular exam: PRESENT: RRR. ABSENT: diastolic murmur, rubs, systolic murmur GI/Abdominal exam: PRESENT: normal bowel sounds, soft. ABSENT: distended, guarding, mass, organolmegaly, rebound, tenderness Extremities exam: ABSENT: calf tenderness, clubbing, pedal edema Neurological exam: PRESENT: alert, awake, oriented to person, oriented to place , oriented to time, oriented to situation, CN II-XII grossly intact. ABSENT: motor sensory deficit Psychiatric exam: PRESENT: appropriate affect Skin exam: PRESENT: dry, intact, warm. ABSENT: cyanosis, rash Results Laboratory Results: 06/09/17 04:51 06/09/17 04:51 06/09/17 06/09/17 04:51 04:51 WBC 18.6 H RBC 3.69 L Hgb 10.7 L Hct 32.8 L MCV 89 MCH 29.0 MCHC 32.6 RDW 14.0 Plt Count 209 Seg Neutrophils % 77.8 Lymphocytes % 10.2 L Monocytes % 11.1 Eosinophils % 0.8 Basophils % 0.1 Absolute Neutrophils 14.5 H Absolute Lymphocytes 1.9 Absolute Monocytes 2.1 H Absolute Eosinophils 0.1 Absolute Basophils 0.0 Sodium 132.3 L Potassium 4.0 Chloride 83 L Carbon Dioxide 45 H* Anion Gap 4 L BUN 20 Creatinine 0.44 L Est GFR ( Amer) > 60 Est GFR (Non-Af Amer) > 60 Glucose 96 Calcium 9.5 Impressions: Chest/Abdomen CTA 05/28/17 11:37 IMPRESSION: 1. NORMAL CTA OF THE CHEST. NO PULMONARY EMBOLI. 2. EMPHYSEMATOUS CHANGES WITH CHRONIC SCARRING. IRREGULAR PARENCHYMAL DENSITY IN THE POSTERIOR RIGHT LOWER LOBE COULD REPRESENT FOCAL PNEUMONIA. GIVEN HISTORY OF LUNG CANCER, CANNOT EXCLUDE RECURRENT DISEASE OR METASTASIS. 3. OTHER CHRONIC FINDINGS ABOVE. Chest X-Ray 06/04/17 00:00 IMPRESSION: Post therapeutic changes in the right chest. No acute infiltrates. Assessment & Plan - Diagnosis (1) Sepsis Qualifiers: Sepsis type: sepsis due to unspecified organism Qualified Code(s): A41.9 - Sepsis, unspecified organism Is this a current diagnosis for this admission?: Yes Plan: Secondary to pneumonia. Growing Pseudomonas from cultures. Patient has improved. (2) Pneumonia Qualifiers: Pneumonia type: due to unspecified organism Laterality: left Lung location: lower lobe of lung Qualified Code(s): J18.1 - Lobar pneumonia, unspecified organism Is this a current diagnosis for this admission?: Yes Plan: Continue with oral Cipro and inhaled tobramycin. (3) COPD (chronic obstructive pulmonary disease) Qualifiers: COPD type: unspecified COPD Qualified Code(s): J44.9 - Chronic obstructive pulmonary disease, unspecified Is this a current diagnosis for this admission?: Yes Plan: Patient has acute COPD exacerbation. This been treated with steroids, nebulizers, BiPAP. (4) Hypertension Qualifiers: Hypertension type: essential hypertension Qualified Code(s): I10 - Essential (primary) hypertension Is this a current diagnosis for this admission?: Yes Plan: Blood pressures are stable. (5) Lung cancer Qualifiers: Lung location: unspecified part of lung Is this a current diagnosis for this admission?: Yes Plan: The patient had a CyberKnife 4 years ago. She had a PET scan in March of this year that showed no evidence for recurrence. (6) Osteoporosis Is this a current diagnosis for this admission?: Yes (7) DNR (do not resuscitate) Is this a current diagnosis for this admission?: Yes Plan: the patient requests to be a DO NOT RESUSCITATE. (8) Hyponatremia Is this a current diagnosis for this admission?: Yes Plan: Patient received a dose of tolvaptan. Sodium is improving. Nephrology is following. - Time Time Spent with patient: 25-34 minutes - Inpatient Certification Medical Necessity: Need Close Monitoring Due to Risk of Patient Decompensation - Plan Summary Plan Summary: Patient will be discharged to skilled nurse facility when a rehab bed is available.
[2017-06-09] MEDS: FLUCONAZOLE 100 MG TABLET PO SCH (18:15)
--- NOTE | 2017-06-09 18:45 | PDOC PROGRESS REPORT ---
Subjective Progress Note for:: 06/09/17 Subjective:: Patient continues to do well. Her sodium level continues to improve. She does not have any new complaints and continues to recuperate. Physical Exam Vital Signs: Temp Pulse Resp BP Pulse Ox 98.3 F 79 18 98/54 L 96 06/09/17 15:11 06/09/17 15:50 06/09/17 15:50 06/09/17 15:11 06/09/17 15:50 Pulse Oximeter Continuous Start: 05/30/17 19: 00 Freq: RTQ4 Status: Active Document 06/09/17 15:50 [facility] (Rec: 06/09/17 16:05 LDA [email or web address]) Pulse Oximetry Assessment Oxygen Saturation (92-100) 96 Oxygen Flow Rate (L/min) 4 Oxygen Delivery Method Nasal Cannula Equipment Usage Equipment in Use Continuous SpO2 Machine # 1 Intake & Output 06/08/17 06/09/17 06/10/17 06:59 06:59 06:59 Intake Total 1537 876 769 Output Total 3825 1875 300 Balance -2288 -999 469 Weight 74.7 kg 71.6 kg Exam: General appearance: PRESENT: no acute distress, cooperative, well-developed, well-nourished Head exam: PRESENT: atraumatic, normocephalic Eye exam: PRESENT: conjunctiva pale, PERRLA. ABSENT: scleral icterus Neck exam: ABSENT: JVD Respiratory exam: PRESENT: Diminished breath sounds. ABSENT: crackles, rales, rhonchi, unlabored, wheezes Cardiovascular exam: PRESENT: Regular rate rhythm -+S1, +S2. ABSENT: diastolic murmur, systolic murmur GI/Abdominal exam: PRESENT: normal bowel sounds, soft. ABSENT: guarding, mass, tenderness Extremities exam: ABSENT: No edema Neurological exam: PRESENT: alert, awake, oriented to person, place and time. Skin exam: PRESENT: dry, warm, Results Laboratory Results: 06/09/17 04:51 06/09/17 04:51 06/09/17 06/09/17 04:51 04:51 WBC 18.6 H RBC 3.69 L Hgb 10.7 L Hct 32.8 L MCV 89 MCH 29.0 MCHC 32.6 RDW 14.0 Plt Count 209 Seg Neutrophils % 77.8 Lymphocytes % 10.2 L Monocytes % 11.1 Eosinophils % 0.8 Basophils % 0.1 Absolute Neutrophils 14.5 H Absolute Lymphocytes 1.9 Absolute Monocytes 2.1 H Absolute Eosinophils 0.1 Absolute Basophils 0.0 Sodium 132.3 L Potassium 4.0 Chloride 83 L Carbon Dioxide 45 H* Anion Gap 4 L BUN 20 Creatinine 0.44 L Est GFR ( Amer) > 60 Est GFR (Non-Af Amer) > 60 Glucose 96 Calcium 9.5 Impressions: Chest/Abdomen CTA 05/28/17 11:37 IMPRESSION: 1. NORMAL CTA OF THE CHEST. NO PULMONARY EMBOLI. 2. EMPHYSEMATOUS CHANGES WITH CHRONIC SCARRING. IRREGULAR PARENCHYMAL DENSITY IN THE POSTERIOR RIGHT LOWER LOBE COULD REPRESENT FOCAL PNEUMONIA. GIVEN HISTORY OF LUNG CANCER, CANNOT EXCLUDE RECURRENT DISEASE OR METASTASIS. 3. OTHER CHRONIC FINDINGS ABOVE. Chest X-Ray 06/04/17 00:00 IMPRESSION: Post therapeutic changes in the right chest. No acute infiltrates. Assessment & Plan - Diagnosis (1) Hyponatremia Is this a current diagnosis for this admission?: Yes Plan: Patient's sodium level significantly improved after a dose of tolvaptan last night. She is still continuously having good urine output which indicates a good aquaresis. No further dose of tolvaptan tonight. I think her sodium level will either be more improved or stable tomorrow. Patient is clinically better with improved sodium level. At this point I think her sodium level is quite acceptable. No further need for tolvaptan or any other intervention from nephrology standpoint. (2) COPD (chronic obstructive pulmonary disease) Qualifiers: COPD type: unspecified COPD Qualified Code(s): J44.9 - Chronic obstructive pulmonary disease, unspecified Is this a current diagnosis for this admission?: Yes (3) Pneumonia Qualifiers: Pneumonia type: due to unspecified organism Laterality: left Lung location: lower lobe of lung Qualified Code(s): J18.1 - Lobar pneumonia, unspecified organism Is this a current diagnosis for this admission?: Yes (4) UTI (urinary tract infection) Qualifiers: Urinary tract infection type: site unspecified Hematuria presence: without hematuria Qualified Code(s): N39.0 - Urinary tract infection, site not specified Is this a current diagnosis for this admission?: Yes - Notes Notes: I will sign off at this time. Please call me if I can be of any further help. - Time Time with patient: 15-25 minutes
[2017-06-10] MEDS: IPRATROPIUM/ALBUTEROL 0.5-2.5 MG/3 ML AMPUL NEB SCH ×7 (00:23→23:59)
[2017-06-10 04:57] LABS: ABSOLUTE EOSINOPHILS # (AUTO) 0.2 10^3/uL (0.0-0.6); ABSOLUTE LYMPHOCYTES (AUTO) 1.8 10^3/uL (0.5-4.7); ABSOLUTE MONOCYTES (AUTO) 1.7 10^3/uL (0.1-1.4); ABSOLUTE NEUT (AUTO) 13.5 10^3/uL (1.7-8.2); HEMATOCRIT 29.9 % (36.0-47.0); HEMOGLOBIN 9.9 g/dL (12.0-15.5); HGB HCT DIFFERENCE -0.2; LYMPHOCYTES % (AUTO) 10.6 % (13-45); MEAN CORPUSCULAR HEMOGLOBIN 29.6 pg (27.0-33.4); MEAN CORPUSCULAR HGB CONC 33.2 g/dL (32.0-36.0); MEAN CORPUSCULAR VOLUME 89 fl (80-97); MONOCYTES % (AUTO) 9.7 % (3-13); RED BLOOD COUNT 3.35 10^6/uL (3.72-5.28); RED CELL DISTRIBUTION WIDTH 13.6 % (11.5-14.0); SEGMENTED NEUTROPHILS % (AUTO) 78.7 % (42-78); WHITE BLOOD COUNT 17.2 10^3/uL (4.0-10.5)
[2017-06-10 05:15] LABS: BLOOD UREA NITROGEN 16 mg/dL (7-20); CALCIUM 9.3 mg/dL (8.4-10.2); CHLORIDE 80 mmol/L (98-107); CREATININE RESULT 0.47 mg/dL (0.52-1.25); GLUCOSE 85 mg/dL (75-110); SODIUM 128.6 mmol/L (137-145)
[2017-06-10 05:25] LABS: ANION GAP 3 (5-19); CARBON DIOXIDE 46 mmol/L (22-30)
[2017-06-10] MEDS: LANSOPRAZOLE 30 MG TAB.RAP.DR PO SCH (05:59)
[2017-06-10] MEDS: PREDNISONE 20 MG TABLET PO SCH (08:16)
[2017-06-10] MEDS: ACETAMINOPHEN 325 MG TABLET PO PRN ×2 (08:16→18:18)
[2017-06-10] MEDS: TOBRAMYCIN SULFATE NEB 40 MG/ML 30 ML NEB SCH ×2 (08:25→20:43)
--- NOTE | 2017-06-10 09:37 | PDOC TRANSFER SUMMARY ---
General - Admit/Disc Date/PCP Admission Date/Primary Care Provider: 05/28/17 15:23 DERIC SCHUMACHER PA-C Discharge Date: 06/10/17 - Discharge Diagnosis (1) Sepsis Is this a current diagnosis for this admission?: Yes Summary: Secondary to pneumonia. Grown Pseudomonas from sputum culture. (2) Pneumonia Is this a current diagnosis for this admission?: Yes Summary: Growing Pseudomonas from sputum culture. (3) COPD (chronic obstructive pulmonary disease) Is this a current diagnosis for this admission?: Yes (4) Hypertension Is this a current diagnosis for this admission?: Yes (5) Lung cancer Is this a current diagnosis for this admission?: Yes Summary: History of CyberKnife resection 4 years ago. (6) Osteoporosis Is this a current diagnosis for this admission?: Yes (7) DNR (do not resuscitate) Is this a current diagnosis for this admission?: Yes (8) Hyponatremia Is this a current diagnosis for this admission?: Yes Summary: Secondary to chronic renal failure. Was evaluated by Dr. Triplett while hospitalized. - Additional Information Resuscitation Status: Do Not Resuscitate Discharge Diet: Cardiac Discharge Activity: Activity As Tolerated Home Medications: Albuterol Sulfate [Ventolin 0.083% Neb 2.5 mg/3 mL Ampul] 2.5 mg NEB RTDAILY Albuterol Sulfate [Ventolin Hfa] 2 puff IH Q4HP PRN 05/29/17 Atorvastatin Calcium [Lipitor 10 mg Tablet] 10 mg PO DAILY 05/29/17 Esomeprazole Magnesium [Nexium 24Hr] 22.3 mg PO DAILY 05/29/17 Fluticasone Propionate [Flonase Nasal Mellen 50 Mcg/Mellen 16 gm] 1 spray NASL DAILY 05/29/17 Fluticasone/Salmeterol [Advair 500-50 Diskus 28 Dose] 1 puff IH Q12 05/29/17 Montelukast Sodium [Singulair 10 mg Tablet] 10 mg PO QPM 05/29/17 Ramipril [Altace 5 mg Capsule] 5 mg PO Q12 05/29/17 Tiotropium Bennet [Spiriva Respimat] 2 puff IH DAILY 05/29/17 Ciprofloxacin HCl [Cipro 500 mg Tablet] 500 mg PO Q12 #30 tablet 06/10/17 Fluconazole [Diflucan 100 mg Tablet] 100 mg PO QPM #14 tablet 06/10/17 Prednisone [Deltasone 20 mg Tablet] 20 mg PO QAM tablet 06/10/17 Tobramycin Sulfate [Tobramycin Neb 40 mg/ml 30 ml Vial] 300 mg NEB RTQ12 ml History of Present Illness Admission Date/PCP: 05/28/17 15:23 DERIC SCHUMACHER PA-C History of Present Illness: Patient is an 81-year-old lady with history of lung cancer status post CyberKnife resection 4 years ago who presented with a one-week history of shortness of breath. The patient over the last week has had worsening shortness of breath as well as low-grade fevers. Patient had an episode of hemoptysis and then came to the hospital. Patient was found to have pneumonia as well as sepsis with some hypotension. Patient is admitted for treatment of this. Hospital Course Hospital Course: 81-year-old female who has a history of lung cancer status post CyberKnife resection 4 years ago who presented with cough, shortness of breath, fever. Patient was found to have bilateral pneumonia and the cultures eventually grew out Pseudomonas. Patient was started on broad-spectrum antibiotics initially and patient was evaluated by pulmonary medicine. Patient eventually was switched over to Cipro and inhaled tobramycin after Pseudomonas grew out of the cultures. The patient has clinically improved the patient when she presented was hypotensive consistent with acute septic shock. This did respond to IV fluids. The patient did have problems with her respiratory failure and did require BiPAP. The patient also has a history of coronary artery disease but did not have any problems with that during this hospitalization. Patient was very weak and felt that she would benefit from some short-term rehabilitation for physical therapy. The patient also had significant hyponatremia. The patient received IV fluids and this improved but it did persist and the patient was evaluated by Dr. Triplett of nephrology. Patient was given a dose of tolvaptan and had improvement in her sodium levels. It was felt that she needed no further treatment of her hyponatremia at this time. Patient will need a follow-up chemistry panel at her hospital follow-up visit. Physical Exam Vital Signs: Temp Pulse Resp BP Pulse Ox 99.3 F 92 20 115/49 L 95 06/10/17 07:35 06/10/17 08:24 06/10/17 08:24 06/10/17 07:35 06/10/17 08:24 Pulse Oximeter Continuous Start: 05/30/17 19: 00 Freq: RTQ4 Status: Active Document 06/10/17 08:24 [facility] (Rec: 06/10/17 09:12 [facility] [email or web address]) Pulse Oximetry Assessment Oxygen Saturation (92-100) 95 Oxygen Flow Rate (L/min) 4 Oxygen Delivery Method Nasal Cannula Fraction of Inspired Oxygen (FIO2) 36 Equipment Usage Equipment in Use Continuous SpO2 Machine # N 1 Intake & Output 06/09/17 06/10/17 06/11/17 06:59 06:59 06:59 Intake Total 876 1069 Output Total 1875 1200 Balance -999 -131 Weight 71.6 kg 73.1 kg General appearance: PRESENT: no acute distress Eye exam: PRESENT: conjunctiva pink. ABSENT: scleral icterus Mouth exam: PRESENT: moist, tongue midline Neck exam: ABSENT: JVD Respiratory exam: PRESENT: clear to auscultation evelina. ABSENT: rales, rhonchi, wheezes Cardiovascular exam: PRESENT: RRR. ABSENT: diastolic murmur, rubs, systolic murmur GI/Abdominal exam: PRESENT: normal bowel sounds, soft. ABSENT: distended, guarding, mass, organolmegaly, rebound, tenderness Extremities exam: ABSENT: calf tenderness, clubbing, pedal edema Neurological exam: PRESENT: alert, awake, oriented to person, oriented to place , oriented to time, oriented to situation, CN II-XII grossly intact. ABSENT: motor sensory deficit Psychiatric exam: PRESENT: appropriate affect Skin exam: PRESENT: dry, intact, warm. ABSENT: cyanosis, rash Results Laboratory Results: 06/10/17 04:16 06/10/17 04:16 06/10/17 06/10/17 04:16 04:16 WBC 17.2 H RBC 3.35 L Hgb 9.9 L Hct 29.9 L MCV 89 MCH 29.6 MCHC 33.2 RDW 13.6 Plt Count 209 Seg Neutrophils % 78.7 H Lymphocytes % 10.6 L Monocytes % 9.7 Eosinophils % 1.0 Basophils % 0.0 Absolute Neutrophils 13.5 H Absolute Lymphocytes 1.8 Absolute Monocytes 1.7 H Absolute Eosinophils 0.2 Absolute Basophils 0.0 Sodium 128.6 L Potassium 4.0 Chloride 80 L Carbon Dioxide 46 H* Anion Gap 3 L BUN 16 Creatinine 0.47 L Est GFR ( Amer) > 60 Est GFR (Non-Af Amer) > 60 Glucose 85 Calcium 9.3 Impressions: Chest/Abdomen CTA 05/28/17 11:37 IMPRESSION: 1. NORMAL CTA OF THE CHEST. NO PULMONARY EMBOLI. 2. EMPHYSEMATOUS CHANGES WITH CHRONIC SCARRING. IRREGULAR PARENCHYMAL DENSITY IN THE POSTERIOR RIGHT LOWER LOBE COULD REPRESENT FOCAL PNEUMONIA. GIVEN HISTORY OF LUNG CANCER, CANNOT EXCLUDE RECURRENT DISEASE OR METASTASIS. 3. OTHER CHRONIC FINDINGS ABOVE. Chest X-Ray 06/04/17 00:00 IMPRESSION: Post therapeutic changes in the right chest. No acute infiltrates. Transfer Plan - Disposition Transfer Plan: Patient is to be transferred to [facility] for rehab. - Time Spent with Patient Time spent with patient: Greater than 30 Minutes Qualifiers PATEINT BEING DISCHARGED WITH ANY OF THE FOLLOWING DIAGNOSIS?: No Plan Discharge Plan: Patient is to be discharged to [facility] for rehab. The patient is a DO NOT RESUSCITATE. Time Spent: Greater than 30 Minutes
[2017-06-10] MEDS: ENOXAPARIN SODIUM INJ 40 MG/0.4 ML DISP.SYRIN SUBCUT SCH (10:23)
[2017-06-10] MEDS: MONTELUKAST SODIUM 10 MG TABLET PO SCH (10:24)
[2017-06-10] MEDS: TIOTROPIUM BROMIDE DPI 5 CAP/KIT (18 MCG/CAP) IH SCH (10:24)
[2017-06-10] MEDS: FLUTICASONE/SALMETEROL DISKUS 500-50 MCG/DOSE IH SCH ×2 (10:24→22:28)
[2017-06-10] MEDS: FLUTICASONE NASAL SPRAY 50 MCG/SPRY 120 SPRAY/16 GM NASL SCH (10:24)
[2017-06-10] MEDS: CIPROFLOXACIN HCL 500 MG TABLET PO SCH ×2 (10:24→22:28)
[2017-06-10] MEDS: ATORVASTATIN CALCIUM 10 MG TABLET PO SCH (10:24)
[2017-06-10] MEDS: FLUCONAZOLE 100 MG TABLET PO SCH (18:14)
[2017-06-11] MEDS: IPRATROPIUM/ALBUTEROL 0.5-2.5 MG/3 ML AMPUL NEB SCH (04:23)
[2017-06-11] MEDS: LANSOPRAZOLE 30 MG TAB.RAP.DR PO SCH (06:25)
[2017-06-11 07:51] VITALS: BP 129/93
[2017-06-11] MEDS: PREDNISONE 20 MG TABLET PO SCH (07:57)
== END 2017-06-11 08:15 | DRG 871 ==
LOC: ER 11:29 → UNDOADMIN 15:22 → EH 15:22 → 3W 17:19
PROVIDERS: ADMIT Internal Medicine; ATTEND Internal Medicine
DX: A41.9 Sepsis, unspecified organism (principal); J15.1 Pneumonia due to Pseudomonas; J44.0 Chronic obstructive pulmonary disease with (acute) lower respiratory infection; E87.1 Hypo-osmolality and hyponatremia; N39.0 Urinary tract infection, site not specified; Z66 Do not resuscitate; I10 Essential (primary) hypertension; K21.9 Gastro-esophageal reflux disease without esophagitis; M81.0 Age-related osteoporosis without current pathological fracture; Z85.118 Personal history of other malignant neoplasm of bronchus and lung; Z88.0 Allergy status to penicillin; Z88.8 Allergy status to other drugs, medicaments and biological substances; Z88.2 Allergy status to sulfonamides; Z87.891 Personal history of nicotine dependence
CPT/HCPCS: 36415; 36600; 71010; 71275; 80048; 80053; 81001; 82550; 82553; 82803; 82962; 83605; 83735; 83880; 84132; 84300; 84484; 85025; 85027; 87040; 87070; 87077; 87186; 87205; 93005; 93010; 94640; 94660; 94762; 99291; A9270-GY; G8978-GP; G8979-GP; J0456; J0696; J0743; J0744; J1650; J1940; J2920; J2930; J3480; J3490; J7030; J7060; J7512; J7620; J7685

== ENCOUNTER → 2018-01-19 | Outpatient (CLI) | payer MEDICARE, BC ==
--- NOTE | 2018-01-19 11:07 | WOMENS IMAGING REPORT ---
EXAM DESCRIPTION: BONE DENSITY HIP/SPINE COMPLETED DATE/TIME: 01/19/2018 10:56 am REASON FOR STUDY: AGE-RELATED OSTEOPROSIS; M81.0 M81.0 AGE-RELATED OSTEOPOROSIS W/O CURRENT PATHOLO [facility] COMPARISON: 01/19/2016 TECHNIQUE: Dual-Energy X-ray Absorptiometry (DEXA) of the AP Hip, and Forearm. LIMITATIONS: None. FINDINGS: HIP: The bone mineral density (BMD) measured in the left hip correlates with a T-score of -3 in the femora l neck, which is osteoporosis as defined by the World Health Organization. -9.3% change since prior study FOREARM: The bone mineral density (BMD) measured in the left forearm correlates with a T-score of -4.3 for the 1/3 measurement which is osteoporosis as defined by the World Health Organization. IMPRESSION: 1. HIP: OSTEOPOROSIS. 2. FOREARM: OSTEOPOROSIS. COMMENT: The World Health Organization defines low BMD as follows: T-score: Normal: Greater than -1.0 Osteopenia: Between -1.0 and -2.5 Osteoporosis: Less than -2.5 without fractures Established osteoporosis: Less than -2.5 with fractures In general, you may wish to consider: Diagnosis Treatment Follow-up DEXA Normal BMD Prevention 2-3 years Osteopenia Prevention/Therapy 1-2 years Osteoporosis Therapy Yearly TECHNICAL DOCUMENTATION: JOB ID: [id number]- All Rights Reserved Reading location - IP/workstation name: [email or web address]
== END ==
LOC: WI 09:57
PROVIDERS: ATTEND Internal Medicine
DX: M81.0 Age-related osteoporosis without current pathological fracture (principal)
CPT/HCPCS: 77080

== ENCOUNTER → 2018-02-28 | Outpatient (CLI) | payer MEDICARE, BC ==
--- NOTE | 2018-03-01 07:29 | WOMENS IMAGING REPORT ---
EXAM DESCRIPTION: 3D SCREENING MAMMO BILAT COMPLETED DATE/TIME: 02/28/2018 1:33 pm REASON FOR STUDY: SCREENING MAMMO Z12.31 ENCNTR SCREEN MAMMOGRAM FOR MALIGNANT NEOPLASM OF [place] COMPARISON: Multiple since 2010 TECHNIQUE: Standard craniocaudal and mediolateral oblique views of each breast recorded using digita l acquisition and breast tomosynthesis. LIMITATIONS: None. FINDINGS: No masses, calcifications or architectural distortion. No areas of suspicion. Read with the assistance of CAD. .[facility] - R2 Cenova Version 1.3 .[facility] - R2 Cenova Version 1.3 .[facility] - R2 Cenova Version 2.4 .[facility] [place] - R2 Cenova Version 2.4 .[facility] - R2 Boiler Assistant Operator Version 9.2 IMPRESSION: NORMAL MAMMOGRAM. BIRADS 1. BREAST DENSITY: b. There are scattered areas of fibroglandular density. BIRAD: 1 NEGATIVE RECOMMENDATION: ROUTINE SCREENING Please continue yearly bilateral screening tomosynthesis in February 2019 COMMENT: The patient has been notified of the results by letter per MQSA requirements. Additional no tification policies are in place for contacting patient with suspicious or incomplete findings. Quality ID #[id number]: The [employer] recommends an annual screening mammogram for women aged 40 years or over. This facility utilizes a reminder system to ensure that all patients receive reminder letters, and/or direct phone calls for appointments. This includes reminders for routine scr eening mammograms, diagnostic mammograms, or other Breast Imaging Interventions when appropriate. Th is patient will be placed in the appropriate reminder system. The [employer] (ACR) has developed recommendations for screening MRI of the breast s in certain patient populations, to be used in conjunction with mammography. Breast MRI surveillanc e may be appropriate for women with more than 20% lifetime risk of developing breast cancer as deter mined by genetic testing, significant family history of the disease, or history of mantle radiation f or Hodgkins Disease. ACR Practice Guidelines 2008. DBT Technology DBT is a type of tomographic mammography. With conventional mammography, overlapping breast tissue ma y make lesions difficult to detect, even with good compression. DBT uses an x-ray tube that rotates a round the breast, taking images at different angles. These images are then combined to create thin sl ices of the breast that the radiologist can view as a 3D reconstruction. The judo unit can perform full-field digital mammograms (2D imaging); or DBT (3D imaging); or both, in a combination mode that quickly performs both the mammogram and the tomosynthesis scan while the breast is still compressed. PQRS 6045F: Fluoroscopic imaging is not utilized for breast tomosynthesis. TECHNICAL DOCUMENTATION: FINDING NUMBER: (1) ASSESSMENT: (1) JOB ID: [id number] [email or web address]- All Rights Reserved Reading location - IP/workstation name: [email or web address]
== END ==
LOC: WI 12:59
PROVIDERS: ATTEND Internal Medicine
DX: Z12.31 Encounter for screening mammogram for malignant neoplasm of breast (principal)
CPT/HCPCS: 77063; 77067

== ENCOUNTER 2018-05-02 17:59 | Inpatient (IN) | payer MEDICARE, BC ==
[2018-05-02] MEDS ORDERED: NORMAL SALINE 1000 ML 1,000 ML IV ONE ×2 (19:14→22:29)
--- NOTE | 2018-05-02 19:22 | ER Document Report ---
ED General - General Chief Complaint: Abnormal Lab Results Stated Complaint: ABNORMAL LABS Time Seen by Provider: 05/02/18 19:09 TRAVEL OUTSIDE OF THE [place] IN LAST 30 DAYS: No - HPI Notes: History of lung cancer coming in for weakness outpatient laboratory studies show a hyponatremia hyperkalemia - Related Data Allergies/Adverse Reactions: adhesive tape [Adhesive Tape] Allergy (Severe, Verified 05/02/18 19:09) ibandronate sodium [From Boniva] Allergy (Severe, Verified 05/02/18 19:09) Penicillins Allergy (Severe, Verified 05/02/18 19:09) Sulfa (Sulfonamide Antibiotics) Allergy (Severe, Verified 05/02/18 19:09) oysters Allergy (Uncoded 05/02/18 19:09) throat closes Past Medical History - Social History Smoking Status: Former Smoker Chew tobacco use (# tins/day): No Frequency of alcohol use: None Drug Abuse: None Family History: Reviewed & Not Pertinent Patient has suicidal ideation: No Patient has homicidal ideation: No - Past Medical History Cardiac Medical History: Reports: Hx Hypertension Denies: Hx Coronary Artery Disease, Hx Heart Attack Pulmonary Medical History: Reports: Hx Bronchitis, Hx COPD Denies: Hx Asthma, Hx Pneumonia Neurological Medical History: Reports: Hx Seizures. Denies: Hx Cerebrovascular Accident Renal/ Medical History: Denies: Hx Peritoneal Dialysis Malignancy Medical History: Reports: Hx Lung Cancer - Status post CyberKnife resection. GI Medical History: Reports: Hx Gastroesophageal Reflux Disease. Denies: Hx Hepatitis, Hx Hiatal Hernia, Hx Ulcer Musculoskeletal Medical History: Reports Hx Arthritis Psychiatric Medical History: Reports: Hx Depression Infectious Medical History: Denies: Hx Hepatitis Past Surgical History: Reports: Hx Hysterectomy, Other - Partial colectomy for polyp. Status post kyphoplasty of T-spine.. Denies: Hx Mastectomy, Hx Open Heart Surgery, Hx Pacemaker - Immunizations Hx Diphtheria, Pertussis, Tetanus Vaccination: No Hx Pneumococcal Vaccination: 06/12/10 Review of Systems - Review of Systems Constitutional: Weakness Physical Exam - Vital signs Vitals: Temp Pulse Resp BP Pulse Ox 98.6 F 93 14 86/68 L 94 05/02/18 18:10 05/02/18 18:10 05/02/18 18:10 05/02/18 18:10 05/02/18 18:10 Interpretation: Hypotensive - Respiratory Respiratory status: No respiratory distress Chest status: Nontender Breath sounds: Normal Chest palpation: Normal Course - Vital Signs Vital signs: Temp Pulse Resp BP Pulse Ox 98.6 F 93 14 86/68 L 94 05/02/18 18:10 05/02/18 18:10 05/02/18 18:10 05/02/18 18:10 05/02/18 18:10 Discharge - Discharge Referrals: LATIA CASTANO MD [Primary Care Provider] - Follow up as needed
--- NOTE | 2018-05-02 19:46 | RADIOLOGY REPORT (SQ) ---
EXAM DESCRIPTION: CHEST SINGLE VIEW COMPLETED DATE/TIME: 05/02/2018 7:38 pm REASON FOR STUDY: sob COMPARISON: 06/04/2017 EXAM PARAMETERS: NUMBER OF VIEWS: One view. TECHNIQUE: Single frontal radiographic view of the chest acquired. RADIATION DOSE: NA LIMITATIONS: None. FINDINGS: LUNGS AND PLEURA: Hyperexpansion of the lungs. Right upper lobe scarring. No infiltrate or effusion. No mass. MEDIASTINUM AND HILAR STRUCTURES: No masses. Contour normal. HEART AND VASCULAR STRUCTURES: Heart normal in size. Normal vasculature. BONES: No acute findings. HARDWARE: None in the chest. OTHER: No other significant finding. IMPRESSION: Chronic lung changes with no acute cardiopulmonary disease. TECHNICAL DOCUMENTATION: JOB ID: [id number] [employer]- All Rights Reserved Reading location - IP/workstation name: [email or web address]
[2018-05-02 19:49] LABS: ABSOLUTE EOSINOPHILS # (AUTO) 0.4 10^3/uL (0.0-0.6); ABSOLUTE LYMPHOCYTES (AUTO) 1.7 10^3/uL (0.5-4.7); ABSOLUTE MONOCYTES (AUTO) 0.9 10^3/uL (0.1-1.4); ABSOLUTE NEUT (AUTO) 7.7 10^3/uL (1.7-8.2); BASOPHILS % (AUTO) 0.4 % (0-2); EOSINOPHILS % (AUTO) 3.3 % (0-6); HEMATOCRIT 35.6 % (36.0-47.0); HEMOGLOBIN 12.2 g/dL (12.0-15.5); LYMPHOCYTES % (AUTO) 15.9 % (13-45); MEAN CORPUSCULAR HEMOGLOBIN 31.2 pg (27.0-33.4); MEAN CORPUSCULAR HGB CONC 34.4 g/dL (32.0-36.0); MEAN CORPUSCULAR VOLUME 91 fl (80-97); MONOCYTES % (AUTO) 8.3 % (3-13); PLATELET COUNT 281 10^3/uL (150-450); RED BLOOD COUNT 3.92 10^6/uL (3.72-5.28); RED CELL DISTRIBUTION WIDTH 12.5 % (11.5-14.0); SEGMENTED NEUTROPHILS % (AUTO) 72.1 % (42-78); TOTAL CELLS COUNTED % (AUTO) 100 %; WHITE BLOOD COUNT 10.6 10^3/uL (4.0-10.5)
--- NOTE | 2018-05-02 19:54 | ER Document Report ---
ED General - General Chief Complaint: Abnormal Lab Results Stated Complaint: ABNORMAL LABS Time Seen by Provider: 05/02/18 19:09 Mode of Arrival: Ambulatory Information source: Patient Notes: Patient was sent to the emergency room by her primary doctor for low sodium. TRAVEL OUTSIDE OF THE [place] IN LAST 30 DAYS: No - HPI Onset: Just prior to arrival Onset/Duration: Sudden Quality of pain: No pain Severity: None Pain Level: Denies Associated symptoms: None Exacerbated by: Denies Relieved by: Denies Similar symptoms previously: No Recently seen / treated by doctor: Yes - Related Data Allergies/Adverse Reactions: adhesive tape [Adhesive Tape] Allergy (Severe, Verified 05/02/18 19:09) ibandronate sodium [From Boniva] Allergy (Severe, Verified 05/02/18 19:09) Penicillins Allergy (Severe, Verified 05/02/18 19:09) Sulfa (Sulfonamide Antibiotics) Allergy (Severe, Verified 05/02/18 19:09) oysters Allergy (Uncoded 05/02/18 19:09) throat closes Past Medical History - Social History Smoking Status: Former Smoker Chew tobacco use (# tins/day): No Frequency of alcohol use: None Drug Abuse: None Family History: Reviewed & Not Pertinent Patient has suicidal ideation: No Patient has homicidal ideation: No - Past Medical History Cardiac Medical History: Reports: Hx Hypertension Denies: Hx Coronary Artery Disease, Hx Heart Attack Pulmonary Medical History: Reports: Hx Bronchitis, Hx COPD Denies: Hx Asthma, Hx Pneumonia Neurological Medical History: Reports: Hx Seizures. Denies: Hx Cerebrovascular Accident Renal/ Medical History: Denies: Hx Peritoneal Dialysis Malignancy Medical History: Reports: Hx Lung Cancer - Status post CyberKnife resection. GI Medical History: Reports: Hx Gastroesophageal Reflux Disease. Denies: Hx Hepatitis, Hx Hiatal Hernia, Hx Ulcer Musculoskeletal Medical History: Reports Hx Arthritis Psychiatric Medical History: Reports: Hx Depression Infectious Medical History: Denies: Hx Hepatitis Past Surgical History: Reports: Hx Hysterectomy, Other - Partial colectomy for polyp. Status post kyphoplasty of T-spine.. Denies: Hx Mastectomy, Hx Open Heart Surgery, Hx Pacemaker - Immunizations Hx Diphtheria, Pertussis, Tetanus Vaccination: No Hx Pneumococcal Vaccination: 06/12/10 Review of Systems - Review of Systems Constitutional: denies: Chills, Fever EENT: No symptoms reported Cardiovascular: No symptoms reported Respiratory: Short of breath Gastrointestinal: No symptoms reported Genitourinary: No symptoms reported Musculoskeletal: No symptoms reported Skin: No symptoms reported Hematologic/Lymphatic: No symptoms reported Neurological/Psychological: No symptoms reported -: Yes All other systems reviewed and negative Physical Exam - Vital signs Vitals: Temp Pulse Resp BP Pulse Ox 98.6 F 93 14 86/68 L 94 05/02/18 18:10 05/02/18 18:10 05/02/18 18:10 05/02/18 18:10 05/02/18 18:10 - General General appearance: Appears well, Alert In distress: None - HEENT Head: Normocephalic, Atraumatic Eyes: Normal Pupils: PERRL - Respiratory Respiratory status: No respiratory distress Chest status: Nontender Breath sounds: Normal Chest palpation: Normal - Cardiovascular Rhythm: Regular Heart sounds: Normal auscultation Murmur: No - Abdominal Inspection: Normal Distension: No distension Bowel sounds: Normal Tenderness: Nontender Organomegaly: No organomegaly - Back Back: Normal, Nontender - Extremities General upper extremity: Normal inspection, Nontender, Normal color, Normal ROM , Normal temperature General lower extremity: Normal inspection, Nontender, Normal color, Normal ROM , Normal temperature, Normal weight bearing. No: Kanwal's sign - Neurological Neuro grossly intact: Yes Cognition: Normal Orientation: AAOx4 Haydee Coma Scale Eye Opening: Spontaneous Haydee Coma Scale Verbal: Oriented Haydee Coma Scale Motor: Obeys Commands Haydee Coma Scale Total: 15 Speech: Normal Motor strength normal: LUE, RUE, LLE, RLE Sensory: Normal - Psychological Associated symptoms: Normal affect, Normal mood - Skin Skin Temperature: Warm Skin Moisture: Dry Skin Color: Normal Course - Vital Signs Vital signs: Temp Pulse Resp BP Pulse Ox 98.6 F 93 20 101/51 L 97 05/02/18 18:10 05/02/18 18:10 05/03/18 02:20 05/03/18 02:20 05/03/18 02:20 - Laboratory Result Diagrams: 05/02/18 19:30 05/02/18 19:30 Laboratory results interpreted by me: 05/02/18 05/02/18 05/02/18 19:30 19:30 20:13 WBC 10.6 H Hct 35.6 L Sodium 123.7 L Potassium 5.5 H Chloride 77 L Carbon Dioxide 36 H Creatinine 0.48 L Urine Protein 30 H Urine Ketones TRACE H Ur Leukocyte Esterase SMALL H - EKG Interpretation by Me EKG shows normal: Sinus rhythm Rate: Normal - 93 When compared to previous EKG there are: Previous EKG unavailable Additional EKG results interpreted by me: 05/02/18 19:52 LVH with repolarization abnormality. No STEMI. Non specific ST and T wave changes. Discharge - Discharge Clinical Impression: Acute hyponatremia, Acute hyperkalemia, Electrolyte imbalance Condition: Stable Disposition: ADMITTED INPATIENT Admitting Provider: Dr Diaz Unit Admitted: Telemetry
[2018-05-02 20:07] LABS: ALANINE AMINOTRANSFERASE 21 U/L (9-52); ALBUMIN 3.9 g/dL (3.5-5.0); ALKALINE PHOSPHATASE 59 U/L (38-126); ANION GAP 11 (5-19); ASPARTATE AMINO TRANSFERASE 21 U/L (14-36); BILIRUBIN,DIRECT 0.3 mg/dL (0.0-0.4); BILIRUBIN,TOTAL 0.5 mg/dL (0.2-1.3); BLOOD UREA NITROGEN 18 mg/dL (7-20); CALCIUM 10.1 mg/dL (8.4-10.2); CARBON DIOXIDE 36 mmol/L (22-30); CHLORIDE 77 mmol/L (98-107); GLUCOSE 99 mg/dL (75-110); LIPASE 45.6 U/L (23-300); POTASSIUM 5.5 mmol/L (3.6-5.0); SODIUM 123.7 mmol/L (137-145); TOTAL PROTEIN 6.9 g/dL (6.3-8.2)
[2018-05-02 20:35] LABS: APPEARANCE,URINE SLIGHTLY-CLOUDY; BILIRUBIN,URINE NEGATIVE (NEGATIVE); COLOR,URINE YELLOW; GLUCOSE, URINE NEGATIVE (NEGATIVE); KETONES,URINE TRACE mg/dL (NEGATIVE); LEUKOCYTE ESTERASE,URINE SMALL (NEGATIVE); NITRITE,URINE NEGATIVE (NEGATIVE); PROTEIN,URINE 30 mg/dL (NEGATIVE); URINE SPECIFIC GRAVITY 1.013; UROBILINOGEN,URINE NEGATIVE mg/dL (<2.0)
--- NOTE | 2018-05-02 22:16 | EKG REPORT ---
SEVERITY:- ABNORMAL ECG - SINUS RHYTHM PROBABLE LVH WITH SECONDARY REPOL ABNRM ANTERIOR ST ELEVATION, PROBABLY DUE TO LVH : Confirmed by: Calderon Fitzpatrick 02-May-2018 22:16:25
[2018-05-02] MEDS ORDERED: SODIUM POLYSTYRENE SULFONATE 15 GM/60 ML PO ONE (22:29)
[2018-05-03 07:56] LABS: ANION GAP 8 (5-19); BLOOD UREA NITROGEN 12 mg/dL (7-20); CALCIUM 8.7 mg/dL (8.4-10.2); CARBON DIOXIDE 34 mmol/L (22-30); CHLORIDE 86 mmol/L (98-107); GLUCOSE 86 mg/dL (75-110); SODIUM 127.6 mmol/L (137-145)
[2018-05-03 08:01] LABS: POTASSIUM 4.4 mmol/L (3.6-5.0)
[2018-05-03 12:04] LABS: ABSOLUTE BASOPHILS # (AUTO) 0.1 10^3/uL (0.0-0.2); ABSOLUTE EOSINOPHILS # (AUTO) 0.3 10^3/uL (0.0-0.6); ABSOLUTE LYMPHOCYTES (AUTO) 1.7 10^3/uL (0.5-4.7); ABSOLUTE MONOCYTES (AUTO) 0.9 10^3/uL (0.1-1.4); ABSOLUTE NEUT (AUTO) 5.3 10^3/uL (1.7-8.2); BASOPHILS % (AUTO) 0.7 % (0-2); EOSINOPHILS % (AUTO) 3.8 % (0-6); HEMATOCRIT 32.9 % (36.0-47.0); HEMOGLOBIN 11.4 g/dL (12.0-15.5); LYMPHOCYTES % (AUTO) 20.4 % (13-45); MEAN CORPUSCULAR HEMOGLOBIN 31.4 pg (27.0-33.4); MEAN CORPUSCULAR HGB CONC 34.6 g/dL (32.0-36.0); MEAN CORPUSCULAR VOLUME 91 fl (80-97); MONOCYTES % (AUTO) 10.5 % (3-13); PLATELET COUNT 269 10^3/uL (150-450); RED BLOOD COUNT 3.62 10^6/uL (3.72-5.28); RED CELL DISTRIBUTION WIDTH 12.7 % (11.5-14.0); SEGMENTED NEUTROPHILS % (AUTO) 64.6 % (42-78); TOTAL CELLS COUNTED % (AUTO) 100 %; WHITE BLOOD COUNT 8.2 10^3/uL (4.0-10.5)
[2018-05-03] MEDS: PANTOPRAZOLE SODIUM 40 MG VIAL IV SCH ×2 (14:31→21:26)
[2018-05-03] MEDS: ENOXAPARIN SODIUM INJ 40 MG/0.4 ML DISP.SYRIN SUBCUT SCH (14:32)
[2018-05-03] MEDS: NORMAL SALINE 1000 ML 1,000 ML IV PRN (14:45)
[2018-05-03] MEDS ORDERED: ALBUTEROL SULFATE HFA (90 MCG/PUFF) 8 GM MDI (1 MDI/ER DISP) IH PRN (18:40)
[2018-05-03] MEDS ORDERED: (PENDING PHARMACY ID) (Tiotropium Bromide [Spiriva Respimat] 2 PUFF) IH SCH (18:45)
[2018-05-03] MEDS ORDERED: ALBUTEROL SULFATE HFA (90 MCG/PUFF) 200 PUFF/8.5 GM MDI IH PRN (18:47)
--- NOTE | 2018-05-03 18:55 | PDOC PROGRESS REPORT ---
Subjective Progress Note for:: 05/03/18 Subjective:: Patient seen early this am on rounds. No new complaints/ Labs reviewed Family requesting her meds to be restarted this pm. They were reconciled and I went over them with the family. Meds have been restarted Reason For Visit: HYPERKALEMIA, HYPONATREMIA Physical Exam Vital Signs: Temp Pulse Resp BP Pulse Ox 98.5 F 85 16 104/67 100 05/03/18 10:17 05/03/18 10:17 05/03/18 10:17 05/03/18 10:17 05/03/18 13:44 Intake & Output 05/02/18 05/03/18 05/04/18 06:59 06:59 06:59 Intake Total 656 Balance 656 Weight 57.1 kg General appearance: PRESENT: no acute distress, well-developed, well-nourished Head exam: PRESENT: atraumatic, normocephalic Eye exam: PRESENT: conjunctiva pink, EOMI, PERRLA. ABSENT: scleral icterus Ear exam: PRESENT: normal external ear exam Mouth exam: PRESENT: tongue midline Neck exam: ABSENT: carotid bruit, JVD, lymphadenopathy, thyromegaly Respiratory exam: PRESENT: clear to auscultation evelina. ABSENT: rales, rhonchi, wheezes Cardiovascular exam: PRESENT: RRR. ABSENT: diastolic murmur, rubs, systolic murmur Pulses: PRESENT: normal dorsalis pedis pul Vascular exam: PRESENT: normal capillary refill GI/Abdominal exam: PRESENT: normal bowel sounds, soft. ABSENT: distended, guarding, mass, organolmegaly, rebound, tenderness Rectal exam: PRESENT: deferred Extremities exam: PRESENT: full ROM. ABSENT: calf tenderness, clubbing, pedal edema Neurological exam: PRESENT: alert, awake, oriented to person, oriented to place , oriented to situation, CN II-XII grossly intact. ABSENT: motor sensory deficit Psychiatric exam: ABSENT: homicidal ideation, suicidal ideation Skin exam: PRESENT: intact, warm. ABSENT: cyanosis, rash Results Laboratory Results: 05/03/18 11:12 05/03/18 07:21 05/03/18 05/03/18 05/03/18 07:21 07:21 11:12 WBC Cancelled 8.2 RBC Cancelled 3.62 L Hgb Cancelled 11.4 L Hct Cancelled 32.9 L MCV Cancelled 91 MCH Cancelled 31.4 MCHC Cancelled 34.6 RDW Cancelled 12.7 Plt Count Cancelled 269 Seg Neutrophils % Cancelled 64.6 Lymphocytes % Cancelled 20.4 Monocytes % Cancelled 10.5 Eosinophils % Cancelled 3.8 Basophils % Cancelled 0.7 Absolute Neutrophils Cancelled 5.3 Absolute Lymphocytes Cancelled 1.7 Absolute Monocytes Cancelled 0.9 Absolute Eosinophils Cancelled 0.3 Absolute Basophils Cancelled 0.1 Sodium 127.6 L Potassium 4.4 D Chloride 86 L Carbon Dioxide 34 H Anion Gap 8 BUN 12 Creatinine 0.30 L Est GFR ( Amer) > 60 Est GFR (Non-Af Amer) > 60 Glucose 86 Calcium 8.7 05/03/18 05/03/18 05/03/18 00:54 07:21 12:38 Troponin I < 0.012 < 0.012 < 0.012 Impressions: Chest X-Ray 05/02/18 19:15 IMPRESSION: Chronic lung changes with no acute cardiopulmonary disease. Assessment & Plan - Diagnosis (1) Acute hyperkalemia Is this a current diagnosis for this admission?: Yes (2) Acute hyponatremia Is this a current diagnosis for this admission?: Yes (3) Electrolyte imbalance Is this a current diagnosis for this admission?: Yes (4) COPD (chronic obstructive pulmonary disease) Is this a current diagnosis for this admission?: Yes - Time Time Spent with patient: 15-24 minutes Medications reviewed and adjusted accordingly: Yes Within: within 48 hours - Inpatient Certification Based on my medical assessment, after consideration of the patient's comorbidities, presenting symptoms, or acuity I expect that the services needed warrant INPATIENT care.: Yes Medical Necessity: Significant Comorbidiites Make Outpatient Treatment Too Risky , Need For IV Fluids, Risk of Complication if Not Cared For in Hospital
--- NOTE | 2018-05-03 20:54 | PDOC H&P ---
History of Present Illness Admission Date/PCP: 05/02/18 23:35 LATIA CASTANO MD Patient complains of: Lethargy History of Present Illness: JD LAWRENCE is a 82 year old female presenting to the ER secondary to lethargy and weakness. Patient states she was seen by her primary doctor on Tuesday after she has been feeling lethargic for the past 5 days and feeling shaky. She had blood work done a week ago and was told that her sodium was on the lower side with a repeat blood work on Tuesday. Results were given to the patient on Tuesday at which point she was advised to present to the emergency department for further workup and evaluation given further depletion of her sodium. Patient has a history of hyponatremia. Patient also has a past medical history of lung cancer status post CyberKnife radiation. Saw her oncologist last January. Patient is oxygen dependent secondary to COPD and wears 5 L of oxygen continuously at home. Past Medical History Cardiac Medical History: Reports: Hypertension Denies: Coronary Artery Disease, Myocardial Infarction Pulmonary Medical History: Reports: Bronchitis, Chronic Obstructive Pulmonary Disease (COPD) Denies: Asthma, Pneumonia Neurological Medical History: Reports: Seizures Malignancy Medical History: Reports: Lung Cancer - Status post CyberKnife resection. GI Medical History: Reports: Gastroesophageal Reflux Disease Denies: Hepatitis, Hiatal Hernia Musculoskeltal Medical History: Reports: Arthritis Psychiatric Medical History: Reports: Depression Hematology: Denies: Anemia, Sickle Cell Disease Past Surgical History Past Surgical History: Reports: Hysterectomy, Other - Partial colectomy for polyp. Status post kyphoplasty of T-spine. Denies: Mastectomy, Pacemaker Social History Information Source: Patient Lives with: Family Smoking Status: Former Smoker Number of Years Smokin Last Time Smoked: 10 YEARS AGO Frequency of Alcohol Use: None Hx Recreational Drug Use: No Drugs: None Hx Prescription Drug Abuse: No - Advance Directive Resuscitation Status: Full Code Family History Family History: Reviewed & Not Pertinent Parental Family History Reviewed: Yes Children Family History Reviewed: Yes Sibling(s) Family History Reviewed.: Yes Medication/Allergy Home Medications: Albuterol Sulfate [Ventolin Hfa] 2 puff IH Q4HP PRN 05/29/17 Atorvastatin Calcium [Lipitor 10 mg Tablet] 10 mg PO DAILY 05/29/17 Esomeprazole Magnesium [Nexium 24Hr] 40 mg PO DAILY 05/29/17 Fluticasone Propionate [Flonase Nasal [place] 50 Mcg/[place] 16 gm] 1 spray NASL DAILY 05/29/17 Fluticasone/Salmeterol [Advair 500-50 Diskus 28 Dose] 1 puff IH Q12 05/29/17 Montelukast Sodium [Singulair 10 mg Tablet] 10 mg PO QPM 05/29/17 Tiotropium [place] [Spiriva Respimat] 2 puff IH DAILY 05/29/17 Ferrous Sulfate [Feosol 325 mg Tablet] 325 mg PO DAILY 05/03/18 Naproxen [Naprosyn] 500 mg PO DAILY 05/03/18 Allergies/Adverse Reactions: adhesive tape [Adhesive Tape] Allergy (Severe, Verified 05/02/18 19:09) ibandronate sodium [From Boniva] Allergy (Severe, Verified 05/02/18 19:09) Penicillins Allergy (Severe, Verified 05/02/18 19:09) Sulfa (Sulfonamide Antibiotics) Allergy (Severe, Verified 05/02/18 19:09) oysters Allergy (Uncoded 05/02/18 19:09) throat closes Review of Systems Constitutional: PRESENT: fatigue, weakness. ABSENT: chills, fever(s), headache( s), weight gain, weight loss Eyes: ABSENT: visual disturbances Ears: ABSENT: hearing changes Cardiovascular: ABSENT: chest pain, dyspnea on exertion, edema, orthropnea, palpitations Respiratory: ABSENT: cough, hemoptysis Gastrointestinal: ABSENT: abdominal pain, constipation, diarrhea, hematemesis, hematochezia, nausea, vomiting Genitourinary: ABSENT: dysuria, hematuria Musculoskeletal: ABSENT: joint swelling Integumentary: ABSENT: rash, wounds Neurological: ABSENT: abnormal gait, abnormal speech, confusion, dizziness, focal weakness, syncope Psychiatric: ABSENT: anxiety, depression, homidical ideation, suicidal ideation Endocrine: ABSENT: cold intolerance, heat intolerance, polydipsia, polyuria Hematologic/Lymphatic: ABSENT: easy bleeding, easy bruising Physical Exam Vital Signs: Temp Pulse Resp BP Pulse Ox 98.3 F 87 20 109/67 97 05/03/18 15:00 05/03/18 15:00 05/03/18 15:00 05/03/18 15:00 05/03/18 15:00 Intake & Output 05/02/18 05/03/18 05/04/18 06:59 06:59 06:59 Intake Total 656 436 Balance 656 436 Weight 57.1 kg General appearance: PRESENT: no acute distress, well-developed, well-nourished Head exam: PRESENT: atraumatic, normocephalic Eye exam: PRESENT: conjunctiva pink, EOMI, PERRLA. ABSENT: scleral icterus Ear exam: PRESENT: normal external ear exam Mouth exam: PRESENT: moist, tongue midline Neck exam: ABSENT: carotid bruit, JVD, lymphadenopathy, thyromegaly Respiratory exam: PRESENT: wheezes - Mild coarse expiratory wheezing diffusely. ABSENT: rales, rhonchi Cardiovascular exam: PRESENT: RRR. ABSENT: diastolic murmur, rubs, systolic murmur Pulses: PRESENT: normal dorsalis pedis pul Vascular exam: PRESENT: normal capillary refill GI/Abdominal exam: PRESENT: normal bowel sounds, soft. ABSENT: distended, guarding, mass, organolmegaly, rebound, tenderness Rectal exam: PRESENT: deferred Extremities exam: PRESENT: full ROM. ABSENT: calf tenderness, clubbing, pedal edema Neurological exam: PRESENT: alert, awake, oriented to person, oriented to place , oriented to time, oriented to situation, ataxia, CN II-XII grossly intact. ABSENT: motor sensory deficit Psychiatric exam: PRESENT: appropriate affect, normal mood. ABSENT: homicidal ideation, suicidal ideation Skin exam: PRESENT: dry, intact, warm. ABSENT: cyanosis, rash Results Laboratory Results: 05/03/18 11:12 05/03/18 07:21 05/03/18 05/03/18 05/03/18 07:21 07:21 11:12 WBC Cancelled 8.2 RBC Cancelled 3.62 L Hgb Cancelled 11.4 L Hct Cancelled 32.9 L MCV Cancelled 91 MCH Cancelled 31.4 MCHC Cancelled 34.6 RDW Cancelled 12.7 Plt Count Cancelled 269 Seg Neutrophils % Cancelled 64.6 Lymphocytes % Cancelled 20.4 Monocytes % Cancelled 10.5 Eosinophils % Cancelled 3.8 Basophils % Cancelled 0.7 Absolute Neutrophils Cancelled 5.3 Absolute Lymphocytes Cancelled 1.7 Absolute Monocytes Cancelled 0.9 Absolute Eosinophils Cancelled 0.3 Absolute Basophils Cancelled 0.1 Sodium 127.6 L Potassium 4.4 D Chloride 86 L Carbon Dioxide 34 H Anion Gap 8 BUN 12 Creatinine 0.30 L Est GFR ( Amer) > 60 Est GFR (Non-Af Amer) > 60 Glucose 86 Calcium 8.7 05/03/18 05/03/18 05/03/18 00:54 07:21 12:38 Troponin I < 0.012 < 0.012 < 0.012 Impressions: Chest X-Ray 05/02/18 19:15 IMPRESSION: Chronic lung changes with no acute cardiopulmonary disease. Assessment & Plan - Diagnosis (1) Acute hyperkalemia Is this a current diagnosis for this admission?: Yes (2) Acute hyponatremia Is this a current diagnosis for this admission?: Yes (3) COPD (chronic obstructive pulmonary disease) Is this a current diagnosis for this admission?: Yes (4) DNR (do not resuscitate) Plan: Patient to be admitted for hyperkalemia and hyponatremia management. We will continue to maintain IV fluids (NS@100) overnight with repeat CBC, BMP in a.m. Kayexalate 30 g p.o. 1 given in ED. Repeat potassium appears to be trending downwards. Sodium improved overnight as well. Continue with telemetry monitoring. Continue with oxygen supplementation to maintain O2 sats between 88 and 92%. Continue patient's home medications and monitor closely. Family present at bedside. - Time Time Spent: 30 to 50 Minutes Anticipated discharge: Home
[2018-05-03] MEDS: FLUTICASONE/SALMETEROL DISKUS 500-50 MCG/DOSE IH SCH (21:26)
[2018-05-04] MEDS ORDERED: NAPROXEN 250 MG TABLET PO ONE (00:30)
[2018-05-04] MEDS: NORMAL SALINE 1000 ML 1,000 ML IV PRN (00:30)
[2018-05-04 05:22] LABS: ANION GAP 8 (5-19); BLOOD UREA NITROGEN 8 mg/dL (7-20); CALCIUM 8.6 mg/dL (8.4-10.2); CARBON DIOXIDE 34 mmol/L (22-30); CHLORIDE 87 mmol/L (98-107); GLUCOSE 90 mg/dL (75-110); SODIUM 129.3 mmol/L (137-145)
[2018-05-04] MEDS ORDERED: NAPROXEN 250 MG TABLET PO SCH (10:00)
[2018-05-04] MEDS ORDERED: TIOTROPIUM BROMIDE DPI 5 CAP/KIT (18 MCG/CAP) IH SCH (10:00)
[2018-05-04] MEDS ORDERED: FERROUS SULFATE 325 MG TABLET PO SCH (10:00)
[2018-05-04] MEDS ORDERED: ATORVASTATIN CALCIUM 10 MG TABLET PO SCH (10:00)
[2018-05-04] MEDS ORDERED: FLUTICASONE NASAL SPRAY 50 MCG/SPRY 120 SPRAY/16 GM NASL SCH (10:00)
--- NOTE | 2018-05-04 10:32 | PDOC DISCHARGE SUMMARY ---
General - Admit/Disc Date/PCP Admission Date/Primary Care Provider: 05/02/18 23:35 LATIA CASTANO MD Discharge Date: 05/04/18 - Discharge Diagnosis (1) Acute hyperkalemia Is this a current diagnosis for this admission?: Yes (2) Acute hyponatremia Is this a current diagnosis for this admission?: Yes (3) Electrolyte imbalance Is this a current diagnosis for this admission?: Yes (4) COPD (chronic obstructive pulmonary disease) Is this a current diagnosis for this admission?: Yes - Additional Information Resuscitation Status: Full Code Discharge Diet: As Tolerated Discharge Activity: Activity As Tolerated Home Medications: Albuterol Sulfate [Ventolin Hfa] 2 puff IH Q4HP PRN 05/29/17 Atorvastatin Calcium [Lipitor 10 mg Tablet] 10 mg PO DAILY 05/29/17 Esomeprazole Magnesium [Nexium 24Hr] 40 mg PO DAILY 05/29/17 Fluticasone Propionate [Flonase Nasal [place] 50 Mcg/[place] 16 gm] 1 spray NASL DAILY 05/29/17 Fluticasone/Salmeterol [Advair 500-50 Diskus 28 Dose] 1 puff IH Q12 05/29/17 Montelukast Sodium [Singulair 10 mg Tablet] 10 mg PO QPM 05/29/17 Tiotropium [place] [Spiriva Respimat] 2 puff IH DAILY 05/29/17 Ferrous Sulfate [Feosol 325 mg Tablet] 325 mg PO DAILY 05/03/18 Naproxen [Naprosyn] 500 mg PO DAILY 05/03/18 History of Present Illness History of Present Illness: JD LAWRENCE is a 82 year old female presenting to the ER secondary to lethargy and weakness. Patient states she was seen by her primary doctor on Tuesday after she has been feeling lethargic for the past 5 days and feeling shaky. She had blood work done a week ago and was told that her sodium was on the lower side with a repeat blood work on Tuesday. Results were given to the patient on Tuesday at which point she was advised to present to the emergency department for further workup and evaluation given further depletion of her sodium. Patient has a history of hyponatremia. Patient also has a past medical history of lung cancer status post CyberKnife radiation. Saw her oncologist last January. Patient is oxygen dependent secondary to COPD and wears 5 L of oxygen continuously at home. Hospital Course Hospital Course: Precise etiology of hyponatremia unknown but patient was treated with normal saline and her hyponatremia and hypochloremia improved. Specific natriuretic agent. Patient was seen by physical therapy and she is able to go home with her family however prior to discharge the requested palliative care consult and one was done. Please see palliative care notes for details but patient has been referred to palliative care in the community and she will follow up with hospice care. Physical Exam Vital Signs: Temp Pulse Resp BP Pulse Ox 98.1 F 84 18 116/71 98 05/04/18 08:00 05/04/18 08:00 05/04/18 08:00 05/04/18 08:00 05/04/18 08:00 Intake & Output 05/03/18 05/04/18 05/05/18 06:59 06:59 06:59 Intake Total 656 1411 Balance 656 1411 Weight 55.4 kg General appearance: PRESENT: no acute distress, hard of hearing, other - elderly , kyphotic, frail Head exam: PRESENT: atraumatic Neck exam: ABSENT: carotid bruit, JVD, lymphadenopathy, thyromegaly Respiratory exam: PRESENT: decreased breath sounds, rhonchi Cardiovascular exam: PRESENT: RRR. ABSENT: diastolic murmur, rubs, systolic murmur GI/Abdominal exam: PRESENT: normal bowel sounds, soft. ABSENT: distended, guarding, mass, organolmegaly, rebound, tenderness Rectal exam: PRESENT: deferred Extremities exam: PRESENT: full ROM. ABSENT: calf tenderness, clubbing, pedal edema Neurological exam: PRESENT: alert, awake Results Laboratory Results: 05/03/18 11:12 05/04/18 04:40 05/03/18 05/04/18 11:12 04:40 WBC 8.2 RBC 3.62 L Hgb 11.4 L Hct 32.9 L MCV 91 MCH 31.4 MCHC 34.6 RDW 12.7 Plt Count 269 Seg Neutrophils % 64.6 Lymphocytes % 20.4 Monocytes % 10.5 Eosinophils % 3.8 Basophils % 0.7 Absolute Neutrophils 5.3 Absolute Lymphocytes 1.7 Absolute Monocytes 0.9 Absolute Eosinophils 0.3 Absolute Basophils 0.1 Sodium 129.3 L Potassium 4.0 Chloride 87 L Carbon Dioxide 34 H Anion Gap 8 BUN 8 Creatinine 0.33 L Est GFR ( Amer) > 60 Est GFR (Non-Af Amer) > 60 Glucose 90 Calcium 8.6 05/03/18 05/03/18 05/03/18 00:54 07:21 12:38 Troponin I < 0.012 < 0.012 < 0.012 Impressions: Chest X-Ray 05/02/18 19:15 IMPRESSION: Chronic lung changes with no acute cardiopulmonary disease. Qualifiers - * PATIENT BEING DISCHARGED WITH ANY OF THE FOLLOWING DIAGNOSIS: No Plan Time Spent: Greater than 30 Minutes
[2018-05-04] MEDS ORDERED: LACTULOSE SYRUP 20 GM/30 ML UDCUP PO ONE (11:30)
[2018-05-04 12:27] VITALS: BP 110/60
[2018-05-04] MEDS: ENOXAPARIN SODIUM INJ 40 MG/0.4 ML DISP.SYRIN SUBCUT SCH (13:37)
[2018-05-04] MEDS: FLUTICASONE/SALMETEROL DISKUS 500-50 MCG/DOSE IH SCH (13:37)
[2018-05-04] MEDS: PANTOPRAZOLE SODIUM 40 MG VIAL IV SCH (13:38)
[2018-05-04] MEDS ORDERED: MONTELUKAST SODIUM 10 MG TABLET PO SCH (18:00)
--- NOTE | 2018-05-05 16:14 | Physician Advisory Note ---
Physician Advisor ProgressNote .: Pursuant to the plan for [facility], I have reviewed the medical record for this patient. Physician Advisor Statement: Pt w/acute on chronic hyponatremia, acute hyperkalemia. Very low BUN & Cr. Please consider documenting, if you agree: 1. "Chronic Hypoxemic Respiratory Failure" (this is present anytime a pt needs O2 chronically at baseline) 2. "suspected protein-calorie malnutrition [state mild, mod, or severe] with BMI 24.7, low BUN & Cr, ____[?wt loss, ?appetite loss, ]" [if possible, give specifics on intake, wt loss, loss of SQ fat & muscle mass, diminished hand toll bridge attendant strength, & clinical importance such as (A) nutritional assessment ordered, (B) modified diet or supplements ordered, (C) additional labs ordered, (D) prolonged wound healing time, (E) delayed infxn clearance] Thanks! CK
== END 2018-05-04 14:45 | disposition home or self-care (01) | DRG 641 ==
LOC: ER 17:59 → EH 23:35 → 4W 05-03 09:39
PROVIDERS: ADMIT Family Medicine; ATTEND Family Medicine
DX: E87.5 Hyperkalemia (principal); E87.1 Hypo-osmolality and hyponatremia; E87.8 Other disorders of electrolyte and fluid balance, not elsewhere classified; Z66 Do not resuscitate; J44.9 Chronic obstructive pulmonary disease, unspecified; K21.9 Gastro-esophageal reflux disease without esophagitis; I10 Essential (primary) hypertension; M19.90 Unspecified osteoarthritis, unspecified site; F32.9 Major depressive disorder, single episode, unspecified; Z88.2 Allergy status to sulfonamides; Z88.0 Allergy status to penicillin; Z88.8 Allergy status to other drugs, medicaments and biological substances; Z91.013 Allergy to seafood; Z87.891 Personal history of nicotine dependence; Z90.710 Acquired absence of both cervix and uterus; Z90.49 Acquired absence of other specified parts of digestive tract; Z85.118 Personal history of other malignant neoplasm of bronchus and lung; Z99.81 Dependence on supplemental oxygen
CPT/HCPCS: 36415; 71045; 80048; 80053; 81001; 83690; 84484; 85025; 93005; 93010; 96360; 96361; 99285; G8978-GP; G8979-GP; G8980-GP; J1650; J3490; J7030; S0164